=== PATIENT | female | born 1990 | race Caucasian/White ===

== ENCOUNTER 2022-03-27 10:46 | Emergency (ER) | payer MEDICAID, SELFPAY ==
[2022-03-27 10:47] VITALS: BP 130/91; PULSE 76; RESP 18; TEMP 35.8; O2SAT 100; BMI 28.8
--- NOTE | 2022-03-27 11:16 | EKG12_ITS ---
Test Reason : Blood Pressure : / mmHG Vent. Rate : 080 BPM Atrial Rate : 080 BPM P-R Int : 136 ms QRS Dur : 082 ms QT Int : 356 ms P-R-T Axes : 077 065 041 degrees QTc Int : 410 ms Normal sinus rhythm with sinus arrhythmia Normal ECG Confirmed by THANH BURKS, JESUS MANUEL ([id number]), editorial intern ORLANDO DIEGO ([id number]) on 03/29/2022 11:35:53 AM Referred By: ASTRID Confirmed By:JESUS MANUEL LAW MD
--- NOTE | 2022-03-27 11:32 | RAD_ITS ---
STUDY: X-RAY CHEST REASON FOR EXAM: Female, 32 years old. Chest pain TECHNIQUE: Single AP portable view of the chest. COMPARISON: None. FINDINGS: The lungs are clear and expanded. There is no demonstrated pleural abnormality. Normal size heart. Normal mediastinum and paz. Normal visualized pulmonary arteries. Normal visualized aortic arch and descending thoracic aorta. Normal visualized thoracic spine. Normal visualized ribs, clavicles, and shoulders. There is no demonstrated abnormality of the visualized soft tissue structures of the upper abdomen. RAD/Chest 1 View (Portable) IMPRESSION: Normal x-ray examination of the chest. Electronically Signed: Rusty Miranda MD at 12:37 EST ,
[2022-03-27 12:16] LABS: Absolute Lymphocyte Count 2.01 X10^3/uL (0.83-4.51); Absolute Neutrophil Count 8.2 X10^3/uL (2.0-7.7); Basophil# 0.09 X10^3/uL; Basophil% 0.8 % (0-1); Eosinophil# 0.45 X10^3/uL; Hematocrit 46.1 % (37-47); Hemoglobin 15.5 g/dL (12.0-15.0); Lymphocyte # 2.01 X10^3/ul (0.83-4.51); Lymphocyte % 17.7 % (19-41); Mean Corp Hgb Conc 33.6 g/dL (32-36); Mean Corpuscular Hgb 29.8 pg (27.0-32.0); Mean Corpuscular Volume 88.5 fL (81-99); Mean Platelet Vol. 9.8 fl (6.2-12.0); Monocyte# 0.55 X10^3/uL; Monocyte% 4.8 % (0-10); NRBC Flagged by Analyzer 0 % (0-5); Neutrophil # 8.23 X10^3/uL (2.7-7.7); Neutrophil % 72.3 % (47-70); Platelet Count 299 K/mm3 (150-450); RBC Distribution Width CV 13.2 % (11.6-14.6); RBC Distribution Width SD 42.6 fl (35.1-43.9); Red Blood Count 5.21 M/mm3 (4.2-5.4); White Blood Count 11.4 K/mm3 (4.4-11.0)
[2022-03-27 12:32] LABS: Anion Gap 4 (5-15); BUN 10 mg/dL (7-18); BUN/Creat Ratio 15.8 RATIO (10-20); Calcium,Total 9.6 mg/dL (8.5-10.1); Chloride 108 mmol/L (98-107); Creatinine, Serum 0.63 mg/dL (0.55-1.02); EST Glomerular Filtration Rate 115 mL/min (>60); Est Glom Filt Rate - Afr Amer 139 mL/min (>60); Estimated Creatinine Clearance 128.12 ml/min; Glucose 92 mg/dL (74-106); Potassium 3.9 mmol/L (3.5-5.1); Sodium Level 142 mmol/L (136-145); Troponin-I HS < 3 pg/mL (3.0-54.0)
[2022-03-27 13:59] VITALS: BP 120/80; PULSE 70; RESP 11; O2SAT 100
[2022-03-27 14:00] VITALS: BP 114/72; PULSE 75; RESP 12; O2SAT 99
[2022-03-27] MEDS: Acetaminophen 325 MG Tablet 650 MG PO (14:07)
[2022-03-27] MEDS: Mag Hydrox/Al Hydrox/Simeth 30 ML UDC PO (14:08)
[2022-03-27 15:00] VITALS: BP 116/92; PULSE 75; RESP 14; O2SAT 98
--- NOTE | 2022-03-27 15:12 | ED.VIS.CHEST ---
HPI History of Present Illness Chief Complaint: Chest Pain Informant: patient Narrative Narrative: Patient is a 32-year-old female that denies any past medical history presenting with chest pain. She states is in the center of her chest. Is worse when she takes a deep breath or tries to swallow something. Started 3 AM this morning and woke her up. Does not radiate. She thought initially was reflux but tried Tums with no help. She denies any shortness of breath, nausea or vomiting. She has a mild chronic cough that is unchanged. She does work at a [employer] but is not aware of any exposures to any respiratory illnesses. She denies any fever or chills. Denies any abdominal pain. Denies any swelling of her legs, recent immobilization or history of DVT/PE. She is not on any hormonal therapy. No other complaints at this time. Denies any tobacco use. Denies any family history of heart disease. 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 [facility] Medical History Collapsed lung Hypoplastic left heart Physical exam, pre-employment Home Medications famotidine 20 mg tablet (Pepcid) 20 mg PO BID #30 tabs 03/27/22 [Rx Last Taken Unknown] Allergy/AdvReac Type Severity Reaction Status Date / Time latex Allergy Rash Verified 03/27/22 10:48 penicillin G Allergy Hives Verified 03/27/22 10:48 Surgical History H/O: hysterectomy History of cholecystectomy Social History Smoking Status: Never smoker ROS ROS ED Constitutional Constitutional ED: Denies chills or fever(s) Eyes Eyes: Denies blurry vision ENT ENT ED: Denies rhinorrhea or sore throat Cardiovascular Cardiovascular: Reports as per HPI and chest pain Respiratory/Chest Respiratory/Chest: Denies dyspnea or dyspnea on exertion Gastrointestinal Gastrointestinal: Denies abdominal pain, nausea or vomiting Musculoskeletal Musculoskeletal: Denies arthralgias or myalgias Integumentary Denies rash Neurologic Neurologic: Denies headache(s) Hematologic/Lymphatic Hematologic/Lymphatic: Denies easy bleeding or easy bruising EXAM Physical Exam Const Vital Signs: 03/27/22 10:47 03/27/22 13:59 03/27/22 13:59 Temperature 96.5 F L Temperature Source Temporal Pulse Rate 76 70 Respiratory Rate 18 11 L Respiratory Effort Blood Pressure 130/91 H 120/80 Blood Pressure Mean 104 93 Pulse Ox 100 100 Oxygen Delivery Method Room Air Room Air Room Air 03/27/22 14:01 Temperature Temperature Source Pulse Rate Respiratory Rate Respiratory Effort Normal Blood Pressure Blood Pressure Mean Pulse Ox Oxygen Delivery Method Positive well nourished and well developed General Appearance ED: well developed and NAD HEENT Reports moist mucous membranes normocephalic and atraumatic Eyes PERRL and EOMs intact bilaterally Neck supple and no JVD Chest Wall inspection of chest normal Chest Narrative: Mild tenderness to the sternum with palpation however this does not reproduce her chest pain Resp normal respiratory effort and clear to auscultation bilaterally Cardio regular rate, regular rhythm and no murmurs Peripheral Pulses: radial pulses present and dorsalis pedis pulses present GI normal to inspection, nondistended, normoactive bowel sounds, soft to palpation and non-tender Back/Spine no CVA tenderness Extremity normal to inspection General Extremety ED: Negative for edema General Extremity: Negative for edema Neuro oriented x3 Neuro Narrative: No focal deficits appreciated Sensorium / Orientation: awake, alert, oriented to person, oriented to place and oriented to time Psych mental status grossly normal Skin no rashes or lesions noted Heart Score ECG: Normal Age: </= 45 years Risk Factors: No Risk Factors Troponin: </= Normal Limit Score: 0 MDM MDM MDM Narrative Medical decision making narrative: Patient is evaluated for substernal chest pain. She appears nontoxic in no acute distress. Due to wait time protocol orders were placed and patient had EKG and cardiac work-up started in the ER waiting room. Patient's EKG shows normal sinus rhythm with no acute ischemic process. Hice is a troponin is less than 3. CBC shows mildly elevated white blood cell count of 11.4 and a hemoglobin of 15.5 which is nonspecific. No significant electrolyte abnormalities appreciated. Given her symptoms been present since 3 AM I do not think repeat troponin is indicated as her first 1 is less than 3. I do not suspect ACS as a cause of her pain today. Patient is PE RC negative and I do not suspect a pulmonary emboli. I do not think a D-dimer CTA is indicated. Her vital signs are normal. Chest x-ray reviewed by myself as well as radiology does not show an acute process including pneumothorax, pneumonia or abnormal cardiac silhouette. Patient is given Tylenol and a GI cocktail. She states she has pain when trying to swallow the Tylenol and has mild improvement with a GI cocktail. She is not complaining of foreign body sensation in her chest and is not having any difficulty handling her secretions, food or vomiting. I do not think she has a food impaction of her esophagus. It is possible that she has a localized area of irritation in her esophagus versus GERD versus odynophagia/globus hystericus. At this time I do think patient stable for outpatient follow-up. Will be started on Pepcid and given first dose in the ER. Is instructed to follow-up with GI. Is given return precautions. Patient and family verbalized agreement understand this plan. Patient discharged home in stable condition. Lab Data Labs: Laboratory Results - last 24 hr 03/27/22 03/27/22 12:08 12:08 WBC 11.4 H RBC 5.21 Hgb 15.5 H Hct 46.1 MCV 88.5 MCH 29.8 MCHC 33.6 RDW Std Deviation 42.6 RDW Coeff of Dano 13.2 Plt Count 299 MPV 9.8 Immature Gran % (Auto) 0.400 Neut % (Auto) 72.3 H Lymph % (Auto) 17.7 L [place] % (Auto) 4.8 Eos % (Auto) 4.0 Baso % (Auto) 0.8 Absolute Neuts (auto) 8.2 H Absolute Lymphs (auto) 2.01 Nucleated RBC % 0 Sodium 142 Potassium 3.9 Chloride 108 H Carbon Dioxide 30.0 Anion Gap 4 L BUN 10 Creatinine 0.63 Estim Creat Clear Calc 128.12 Est GFR (MDRD) Af Amer 139 Est GFR (MDRD) Non-Af 115 BUN/Creatinine Ratio 15.8 Glucose 92 Calcium 9.6 Troponin I High Sens < 3 L Radiography Chest X-Ray - ED: 1 View, Read by ED Physician, Read by Radiologist and No Acute Disease Diagnostic Testing: Clinical Impression(s) from Imaging Studies Chest X-Ray 03/27/22 11:32 IMPRESSION: Normal x-ray examination of the chest. Electronically Signed: Rusty Miranda MD at 12:37 EST , Rhythm Strip Rhythm Strip: Sinus Rhythm Rate: 80 Ectopy: None EKG Initial EKG: Attestation: I personally reviewed and interpreted this EKG as follows: Interpretation: Sinus Rhythm Comments: Normal sinus rhythm at a rate of 80 bpm with sinus arrhythmia Normal axis Normal intervals Normal ST segments Discharge Plan Triage Chief Complaint: Chest Pain ED Provider: Keesha Gutierrez Dx/Rx/DC Orders Clinical Impression: Chest pain of unknown etiology, Odynophagia Instructions: ED Chest Pain, Noncardiac, ED Soft Diet Prescriptions: New famotidine [Pepcid] 20 mg tablet 20 mg PO BID Qty: 30 0RF Primary Care Provider: Idris Galloway Referrals: Rah Sanders DO [Med Staff - Active Staff] - As soon as possible Idrsi Galloway MD [Primary Care Provider] - Activity Restrictions/Additional Instructions: Your work-up was largely normal today. I suspect your discomfort is coming more from your esophagus. No signs of a heart attack or pulmonary emboli/pneumonia/collapsed lung on your exam today. We will start you on an antacid. If you start to have increased pain, difficulty swallowing or progression of your symptoms please return to the emergency room. Please follow-up with GI for further evaluation as you might require a scope (EGD) to further evaluate your esophagus/upper GI tract. Disposition Disposition: Home, Self Care
[2022-03-27] MEDS: Famotidine 20 MG Tablet PO (15:24)
== END 2022-03-27 15:39 | disposition home or self-care (01) ==
PROVIDERS: Emergency Provider Emergency Medicine; PCP Internal Medicine; Visit Provider Emergency Medicine
DX: R07.9 Chest pain, unspecified (principal); R13.10 Dysphagia, unspecified; Q23.4 Hypoplastic left heart syndrome
CPT/HCPCS: 71045; 80048; 84484; 85025; 93005; 99285; A4216

== ENCOUNTER 2023-02-27 03:10 | Emergency (ER) | payer MEDICAID, SELFPAY ==
[2023-02-27 03:11] VITALS: BP 106/80; PULSE 90; RESP 22; TEMP 37; O2SAT 99; BMI 28.6
--- NOTE | 2023-02-27 03:20 | EKG12_ITS ---
Test Reason : DYSRHYTHMIA Blood Pressure : / mmHG Vent. Rate : 088 BPM Atrial Rate : 088 BPM P-R Int : 148 ms QRS Dur : 080 ms QT Int : 370 ms P-R-T Axes : 062 035 044 degrees QTc Int : 447 ms Normal sinus rhythm Nonspecific ST abnormality Abnormal ECG Confirmed by THANH BURKS, JESUS MANUEL ([id number]), rewrite editor TRINIDAD HAQ ([id number]) on 02/27/2023 9:16:55 AM Referred By: BB Confirmed By:JESUS MANUEL LAW MD
--- NOTE | 2023-02-27 03:20 | ED.VIS.CHEST ---
HPI History of Present Illness Chief Complaint: Palpitations Informant: patient and EMS Narrative Narrative: Patient states she woke up less than an hour ago with chest discomfort, felt like her heart was racing, and a little short of breath. No syncope. Never had this before. She used her Apple Watch to check her heart rate and it was around 200. Called EMS, and prior to arrival in the emergency department, using their own protocols that they did a rhythm strip that appeared to show SVT, gave her adenosine 6 mg, this resulted in the rhythm breaking to sinus rhythm and the patient now feels asymptomatic. [facility] Medical History Collapsed lung Hypoplastic left heart Physical exam, pre-employment Home Medications hydroxyzine HCl 25 mg tablet 25 mg PO Q8H PRN anxiety 02/27/23 [History Last Taken Unknown] venlafaxine 75 mg capsule,extended release 24 hr 75 mg PO DAILY 02/27/23 [History Last Taken Unknown] Allergy/AdvReac Type Severity Reaction Status Date / Time latex Allergy Rash Verified 02/27/23 03:13 penicillin G Allergy Hives Verified 02/27/23 03:13 Surgical History H/O: hysterectomy History of cholecystectomy Social History Smoking Status: Never smoker ROS ROS ED Constitutional Constitutional ED: Denies chills or fever(s) Eyes Eyes: Denies change in vision or diplopia ENT ENT ED: Denies rhinorrhea or sore throat Cardiovascular Cardiovascular: Reports chest pain, palpitations and racing heartbeat Respiratory/Chest Respiratory/Chest: Reports dyspnea; Denies cough Gastrointestinal Gastrointestinal: Denies abdominal pain, diarrhea, nausea or vomiting Genitourinary Genitourinary ED: Denies dysuria or hematuria Musculoskeletal Musculoskeletal: Denies back pain or neck pain Integumentary Denies abscess or rash Neurologic Neurologic: Denies headache(s), paresthesias or weakness Psychiatric Psychiatric: Denies anxiety or suicidal thoughts EXAM Physical Exam Const Vital Signs: 02/27/23 03:11 02/27/23 03:15 Temperature 98.6 F Temperature Source Temporal Pulse Rate 90 Respiratory Rate 22 H Respiratory Pattern Normal Blood Pressure 106/80 Blood Pressure Mean 88 Pulse Ox 99 Oxygen Delivery Method Room Air Positive well nourished and well developed General Appearance ED: well developed and NAD HEENT Reports moist mucous membranes normocephalic and atraumatic Eyes PERRL and EOMs intact bilaterally Neck full ROM and supple Resp normal respiratory effort and clear to auscultation bilaterally Cardio regular rate, regular rhythm and no murmurs GI non-tender and non-distended Auscultation: normoactive bowel sounds Palpation: soft Back/Spine no CVA tenderness General Back: other FROM Extremity normal to inspection General Extremety ED: Negative for edema, pulses abnormal or tenderness General Extremity: Negative for edema or pulses abnormal Neuro oriented x3, CN's II-XII intact bilaterally and no sensory deficits noted Sensorium / Orientation: awake and alert Motor Exam: strength 5/5 throughout Skin no rashes or lesions noted and no wounds MDM MDM MDM Narrative Medical decision making narrative: Patient was monitored for an hour while we ran blood counts and electrolytes. I reviewed all of these, basically abnormal for potassium level of 3.2. This could either be related to the cause of her dysrhythmia, or it could be a result of feeling anxious and hyperventilating causing an acute transient respiratory alkalosis that could cause shift of potassium into the cells and make the serum level look low when she really is not whole-body potassium depleted. She was given a dose here orally since her renal function is normal, she is stable for discharge, and in reviewing the past medical history in her EMR, she has a history of hypoplastic left heart syndrome. I reviewed this with her, and she states that she did not have surgery for it that she believes, she followed up with a journeyman glazier in [place] when she was around 19 years old, and they said that her heart was structurally normal and she did not need to follow-up with him again. Given this history, I think routine follow-up with a journeyman glazier would be reasonable, she is comfortable with that plan. I would not recommend putting her on any chronotropics right now. Lab Data Attestation: I reviewed the patient's lab results. Labs: Laboratory Results - last 24 hr 02/27/23 03:13 WBC 11.5 H RBC 4.45 Hgb 13.0 Hct 38.6 MCV 86.7 MCH 29.2 MCHC 33.7 RDW Std Deviation 39.8 RDW Coeff of Dano 12.7 Plt Count 284 MPV 10.1 Immature Gran % (Auto) 0.300 Neut % (Auto) 71.5 H Lymph % (Auto) 17.8 L [place] % (Auto) 8.1 Eos % (Auto) 1.7 Baso % (Auto) 0.6 Absolute Neuts (auto) 8.2 H Absolute Lymphs (auto) 2.04 Nucleated RBC % 0 Sodium 142 Potassium 3.2 L Chloride 110 H Carbon Dioxide 25.0 Anion Gap 7 BUN 16 Creatinine 0.90 Estim Creat Clear Calc 100.86 Est GFR (MDRD) Af Amer 93 Est GFR (MDRD) Non-Af 77 BUN/Creatinine Ratio 17.9 Glucose 135 H Calcium 8.1 L Rhythm Strip Rhythm Strip: Sinus Rhythm Rate: 90 Ectopy: None EKG Initial EKG: Attestation: I personally reviewed and interpreted this EKG as follows: Interpretation: Sinus Rhythm and No Acute Injury Pattern Comments: nml EKG Discharge Plan Triage Chief Complaint: Palpitations ED Provider: Adolph Chong Dx/Rx/DC Orders Clinical Impression: SVT (supraventricular tachycardia), History of hypoplastic left heart syndrome, Hypokalemia Instructions: ED Understanding Supraventricular Tachycardia (SVT) Prescriptions: No Action hydroxyzine HCl 25 mg tablet 25 mg PO Q8H PRN (Reason: anxiety) venlafaxine 75 mg capsule,extended release 24hr 75 mg PO DAILY Primary Care Provider: Idris Galloway Referrals: Chao Almaraz MD [Med Staff - Active Staff] - (call for follow up appt; if you prefer to see someone in [facility] system, just call your doctor's office for referral/appt info) Disposition Disposition: Home, Self Care
[2023-02-27 03:31] LABS: Absolute Lymphocyte Count 2.04 X10^3/uL (0.83-4.51); Absolute Neutrophil Count 8.2 X10^3/uL (2.0-7.7); Basophil# 0.07 X10^3/uL; Basophil% 0.6 % (0-1); Eosinophils% 1.7 % (0-5); Hematocrit 38.6 % (37-47); Lymphocyte # 2.04 X10^3/ul (0.83-4.51); Lymphocyte % 17.8 % (19-41); Mean Corp Hgb Conc 33.7 g/dL (32-36); Mean Corpuscular Hgb 29.2 pg (27.0-32.0); Mean Corpuscular Volume 86.7 fL (81-99); Mean Platelet Vol. 10.1 fl (6.2-12.0); Monocyte# 0.93 X10^3/uL; Monocyte% 8.1 % (0-10); NRBC Flagged by Analyzer 0 % (0-5); Neutrophil # 8.17 X10^3/uL (2.7-7.7); Neutrophil % 71.5 % (47-70); Platelet Count 284 K/mm3 (150-450); RBC Distribution Width CV 12.7 % (11.6-14.6); RBC Distribution Width SD 39.8 fl (35.1-43.9); Red Blood Count 4.45 M/mm3 (4.2-5.4); White Blood Count 11.5 K/mm3 (4.4-11.0)
[2023-02-27 03:46] LABS: Anion Gap 7 (5-15); BUN 16 mg/dL (7-18); BUN/Creat Ratio 17.9 RATIO (10-20); Calcium,Total 8.1 mg/dL (8.5-10.1); Chloride 110 mmol/L (98-107); EST Glomerular Filtration Rate 77 mL/min (>60); Est Glom Filt Rate - Afr Amer 93 mL/min (>60); Estimated Creatinine Clearance 100.86 ml/min; Glucose 135 mg/dL (74-106); Potassium 3.2 mmol/L (3.5-5.1); Sodium Level 142 mmol/L (136-145)
--- OUTSIDE RECORDS SUMMARY | 2023-02-27 03:47 | XMS RPT_ITS | CCD ---
Author Name Unknown Address [address] [place] [address] Organization [facility] Care Team Providers Care Weight Count Operator Name Role Phone Nilesh BURKS, Idris Lerner Primary Care Provider [phone] LAURENT CELIS Attending Unavailable LAURENT CELIS Primary Care Unavailable LAURENT CELIS Admitting Unavailable Idris Mena MD Primary Care Provider [phone] PROVIDER, UNKNOWN Referring Unavailable MENA, IGGY Primary Care Unavailable LEYDI OBREGONEN Referring Unavailable MENA, IGGY Primary Care Unavailable RACHEL OBREGON Attending Unavailable LINAKARACHEL Referring Unavailable MENA, IGGY Primary Care Unavailable OLDERMARIETTA Attending Unavailable MENA, IGGY Primary Care Unavailable MENA, IGGY Primary Care Unavailable MENA, IGGY Primary Care Unavailable MANE JADE Attending Unavaila ble RACHEL OBREGON Referring Unavailable MENA, IGGY Primary Care Unavailable LINAKARACHEL Attending Unavailable MENA, IGGY Referring Unavailable MENA, IGGY Primary Care Unavailable CHEYANNE JEFFERSON Attending Unavailable MENA, IGGY Primary Care Unavailable OLDER, CAROLYN Referring Unavailable MENA, IGGY Primary Care Unavailable OLDER, CAROLYN Referring Unavailable MENA, IGGY Primary Care Unavailable OLDER, CAROLYN Attending Unavailable MENA, IGGY Primary Care Unavailable MENA, IGGY Primary Care Unavailable OLDER, CAROLYN Attending Unavailable MENA, IGGY Primary Care Unavailable Allergies Allergy Classification Reported Allergen(s) Allergy Type Date of Onset Reaction(s) Facility (14 sources) Latex; Translations: [LATEX] Propensity to adverse reactions 01-27-2009 Rash [facility] Work Phone: (4 sources) Penicillins; Translations: [PENICILLINS] Propensity to adverse reactions 09-05-2007 [facility] Work Phone: (10 sources) Penicillins Propensity to adverse reactions 09-05-2007 [facility] Work Phone: Medications Current Medications Medication Drug Class(es) Dates Sig (Normalized) Sig (Original) bifidobacterium infantis 4 mg oral capsule (1 source) Start: 06-26-2022 take 1 capsule by mouth once daily Bifidobacterium Infantis (ALIGN) 4 mg cap Indications: Loose stools Take 1 capsule by mouth once daily. 42 capsule 1 06/26/2022 Active Completed/Discontinued Medications Medication Drug Class(es) Dates Sig (Normalized) Sig (Original) cholestyramine resin 4000 mg powder for oral suspension (7 sources) Bile Acid Sequestrant Start: 05-16-2022 take 4 g by mouth three times daily at mealtime cholestyramine-s ucrose (QUESTRAN) 4 gram powder Indications: Altered bowel habits Take 4 g by mouth three times daily with meals. 368.76 g 1 05/16/2022 Active Problems Active Problems Problem Classification Problem Date Documented Da te Episodic/Chronic Anxiety disorders (13 sources) Anxiety; Translations: [Anxiety disorder, unspecified] Onset: 05-26-2019 11-23-2019 Chronic Gastritis and duodenitis (1 source) Bile-induced gastritis; Translations: [Other gastritis without bleeding] Episodic Miscellaneous mental health disorders (12 sources) Insomnia disorder related to another mental disorder; Translations: [Insomnia due to other mental disorder] Onset: 05-26-2019 11-23-2019 Chronic Mood disorders (1 source) Depressive disorder; Translations: [Depressive disorder] Onset: 11-21-2022 Chronic Other gastrointestinal disorders (1 source) Altered bowel function; Translations: [Change in bowel habit] Episodic Other gastrointestinal disorders (1 source) Constipation alternates with diarrhea; Translations: [Other specified symptoms and signs involving the digestive system and abdomen] Episodic Other gastrointestinal disorders (1 source) Loose stool; Translations: [Other fecal abnormalities] Episodic Other lower respiratory disease (2 sources) Chest pain; Translations: [Chest pain on breathing] Episodic Other nutritional; endocrine; and metabolic disorders (12 sources) Obese class I; Translations: [Obesity, unspecified] Onset: 11-23-2019 11-23-2019 Chronic Other skin disorders (2 sources) Folliculitis; Translations: [Follicular disorder, unspecified] Episodic Other upper respiratory infections (4 sources) Pharyngitis; Translations: [Acute pharyngitis, unspecified] Episodic Past or Other Problems Problem Classification Problem Date Documented Da te Episodic/Chronic Abdominal pain (3 sources) Left lower quadrant pain; Translations: [Left lower quadrant pain] Onset: 01-18-2022 Episodic Immunizations and screening for infectious disease (2 sources) Immunization due; Translations: [Encounter for immunization] Onset: 06-13-2022 Episodic Nonspecific chest pain (2 sources) Retrosternal pain ; Translations: [Precordial pain] Onset: 05-16-2022 Episodic Other gastrointestinal disorders (10 sources) Swallowing painful; Translations: [Dysphagia, unspecified] Onset: 04-01-2022 Episodic Other gastrointestinal disorders (2 sources) Dysphagia, unspecified; Translations: [Odynophagia] Onset: 04-01-2022 Episodic Other gastrointestinal disorders (1 source) Other fecal abnormalities; Translations: [Loose stools] Onset: 06-26-2022 Episodic Other gastrointestinal disorders (1 source) Other specified symptoms and signs involving the digestive system and abdomen; Translations: [Alternating constipation and diarrhea] Onset: 06-13-2022 Episodic Other skin disorders (1 source) Follicular disorder, unspecified; Translations: [Folliculitis] Onset: 06-13-2022 Episodic Screening and history of mental health and substance abuse codes (12 sources) H/O: depression; Translations: [Personal history of other mental and behavioral disorders] Onset: 08-06-2013 02-13-2021 Episodic Results Test Name Value Interpretation Reference Range Facil ity Vital Signs Date Time Vital Sign Value Performing Clinician Fawad vanegas 06-26-2022 08:15-0400 Body height 172.7 cm Rachel Obregon PA-C Work Phone: [facility] 06-26-2022 08:15-0400 Body weight 84.82 kg Rachel Obregon PA-C Work Phone: [facility] 06-26-2022 08:15-0400 Diastolic blood pressure 82 mm[Hg] Rachel Obregon PA-C Work Phone: [facility] 06-26-2022 08:15-0400 Heart rate 74 /min Rachel Radha PA-C Work Phone: [facility] 06-26-2022 08:15-0400 Systolic blood pressure 120 mm[Hg] Rachel Radha PA-C Work Phone: [facility] 06-11-2022 09:51-0400 Body temperature 97.81 [degF] Bonny Farnsworth APRN.DENTAL CLAIMS PROCESSOR Work Phone: [facility] 06-11-2022 09:51-0400 Body weight 84.82 kg Bonny Farnsworth APRN.DENTAL CLAIMS PROCESSOR Work Phone: [facility] 06-11-2022 09:51-0400 Diastolic blood pressure 70 mm[Hg] Bonny Farnsworth APRN.DENTAL CLAIMS PROCESSOR Work Phone: [facility] 06-11-2022 09:51-0400 Heart rate 96 /min Bonny Farnsworth APRN.DENTAL CLAIMS PROCESSOR Work Phone: [facility] 06-11-2022 09:51-0400 Respiratory rate 16 /min Bonny Farnsworth APRN.DENTAL CLAIMS PROCESSOR Work Phone: [facility] 06-11-2022 09:51-0400 SaO2% (BldA) [Mass fraction] 99 % Bonny Farnsworth APRN.DENTAL CLAIMS PROCESSOR Work Phone: [facility] 06-11-2022 09:51-0400 Systolic blood pressure 122 mm[Hg] Bonny Farnsworth APRN.DENTAL CLAIMS PROCESSOR Work Phone: [facility] 05-30-2022 12:08-0400 Body temperature 98.6 [degF] Musa Robledo MD Work Phone: [facility] 05-30-2022 12:08-0400 Body weight 84.82 kg Musa Robledo MD Work Phone: [facility] 05-30-2022 12:08-0400 Diastolic blood pressure 76 mm[Hg] Musa Robledo MD Work Phone: [facility] 05-30-2022 12:08-0400 Heart rate 68 /min Musa Robledo MD Work Phone: [facility] 05-30-2022 12:08-0400 Respiratory rate 16 /min Musa Robledo MD Work Phone: [facility] 05-30-2022 12:08-0400 SaO2% (BldA) [Mass fraction] 100 % Musa Robledo MD Work Phone: [facility] 05-30-2022 12:08-0400 Systolic blood pressure 130 mm[Hg] Musa Robledo MD Work Phone: [facility] 05-16-2022 12:49-0400 Body height 172.7 cm Rachel Kalka PA-C Work Phone: [facility] 05-16-2022 12:49-0400 Body weight 86.18 kg Rachel Kalka PA-C Work Phone: [facility] 05-16-2022 12:49-0400 Diastolic blood pressure 80 mm[Hg] Rachel Kalka PA-C Work Phone: [facility] 05-16-2022 12:49-0400 Heart rate 80 /min Rachel Kalka PA-C Work Phone: [facility] 05-16-2022 12:49-0400 Systolic blood pressure 116 mm[Hg] Rachel Kalka PA-C Work Phone: [facility] 03-27-2022 10:03-0500 Body weight 85.73 kg Cheyanne Jefferson AIRPLANE TESTER.MARRIAGE AND FAMILY THERAPIST Work Phone: [facility] 03-27-2022 10:03-0500 Diastolic blood pressure 80 mm[Hg] Cheyanne Jefferson AIRPLANE TESTER.MARRIAGE AND FAMILY THERAPIST Work Phone: [facility] 03-27-2022 10:03-0500 Heart rate 74 /min Cheyanne Jefferson AIRPLANE TESTER.MARRIAGE AND FAMILY THERAPIST Work Phone: [facility] 03-27-2022 10:03-0500 Respiratory rate 16 /min Cheyanne Jefferson AIRPLANE TESTER.MARRIAGE AND FAMILY THERAPIST Work Phone: [facility] 03-27-2022 10:03-0500 SaO2% (BldA) [Mass fraction] 99 % Cheyanne Jefferson AIRPLANE TESTER.MARRIAGE AND FAMILY THERAPIST Work Phone: [facility] 03-27-2022 10:03-0500 Systolic blood pressure 116 mm[Hg] Cheyanne Ardons AIRPLANE TESTER.MARRIAGE AND FAMILY THERAPIST Work Phone: [facility] 01-16-2022 11:34-0500 Body weight 87.09 kg Carolyn Older AIRPLANE TESTER.DENTAL CLAIMS PROCESSOR Work Phone: [facility] 01-16-2022 11:34-0500 Diastolic blood pressure 84 mm[Hg] Carolyn Older AIRPLANE TESTER.DENTAL CLAIMS PROCESSOR Work Phone: [facility] 01-16-2022 11:34-0500 Heart rate 84 /min Carolyn Older AIRPLANE TESTER.DENTAL CLAIMS PROCESSOR Work Phone: [facility] 01-16-2022 11:34-0500 Respiratory rate 14 /min Carolyn Older AIRPLANE TESTER.DENTAL CLAIMS PROCESSOR Work Phone: [facility] 01-16-2022 11:34-0500 Systolic blood pressure 136 mm[Hg] Carolyn Older AIRPLANE TESTER.DENTAL CLAIMS PROCESSOR Work Phone: [facility] 06-06-2021 12:33-0400 Body temperature 98.6 [degF] Lu Ramirez AIRPLANE TESTER.DENTAL CLAIMS PROCESSOR Work Phone: [facility] 06-06-2021 12:33-0400 Body weight 90.72 kg Lu Ramirez AIRPLANE TESTER.DENTAL CLAIMS PROCESSOR Work Phone: [facility] 06-06-2021 12:33-0400 Diastolic blood pressure 80 mm[Hg] Lu Ramirez AIRPLANE TESTER.DENTAL CLAIMS PROCESSOR Work Phone: [facility] 06-06-2021 12:33-0400 Heart rate 64 /min Lu Ramirez AIRPLANE TESTER.DENTAL CLAIMS PROCESSOR Work Phone: [facility] 06-06-2021 12:33-0400 Respiratory rate 20 /min Lu Ramirez AIRPLANE TESTER.DENTAL CLAIMS PROCESSOR Work Phone: [facility] 06-06-2021 12:33-0400 SaO2% (BldA) [Mass fraction] 100 % Lu Ramirez AIRPLANE TESTER.DENTAL CLAIMS PROCESSOR Work Phone: [facility] 06-06-2021 12:33-0400 Systolic blood pressure 124 mm[Hg] Lu Ramirez AIRPLANE TESTER.DENTAL CLAIMS PROCESSOR Work Phone: [facility] Encounters Encounter Date Encounter Type Care Provider Facility Start: 11-30-2022 End: 11-30-2022 ambulatory IDRIS MENA Facility:[facility] Start: 11-30-2022 End: 11-30-2022 ambulatory Immunization Clinic Nurse Carmen Work Phone: [facility] [place] Start: 11-21-2022 End: 11-22-2022 ambulatory CAROLYN OLDER Facility:[facility] Start: 06-26-2022 End: 06-27-2022 ambulatory RACHEL OBREGON Facility:[facility] Start: 06-26-2022 End: 06-26-2022 ambulatory RACHEL OBREGON Facility:[facility] Start: 06-26-2022 End: 06-26-2022 Patient encounter procedure Rachel PARKERC Work Phone: [facility] [place] Procedures Date Procedure Procedure Detail Performing Clinician Start: 11-30-2022 INFLUENZA VACCINE, A GE 6 MO - 64 YR, QUADRIVALENT (AFLURIA, FLULAVAL, FLUZONE) Idris Mena MD Work Phone: Start: 06-01-2022 Radiologic exam esop hagus single contrast study Mane Jade MD Work Phone: Start: 05-30-2022 STREP A MOLECULAR (POC) Ciara Vincent AIRPLANE TESTER.DENTAL CLAIMS PROCESSOR Work Phone: Start: 01-16-2022 Urnls dip stick/tabl et rgnt auto w/o microscopy Carolyn Older AIRPLANE TESTER.DENTAL CLAIMS PROCESSOR Work Phone: Start: 06-06-2021 STREP A MOLECULAR (POC) Lu Ramirez AIRPLANE TESTER.DENTAL CLAIMS PROCESSOR Work Phone: Start: 04-11-2021 Adult depression scr eening assessment Nyla Lange AIRPLANE TESTER.DENTAL CLAIMS PROCESSOR Work Phone: Plan of Treatment Date Care Activity Detail Author Start: 12-09-2023 Urine microalbumin profile [facility] Start: 10-19-2022 Covid-19 Vaccine ( season) Covid-19 Vaccine ( season) [facility] Start: 10-19-2022 Influenza vaccination INFLUENZ A (Season Ended) [facility] Start: 06-26-2022 End: 08-26-2022 CELIAC SCREEN WITH REFLEX [facility] Work Phone: Immunizations Immunization Date Immunization Notes Care Provider Emanuel alexander 11-30-2022 influenza, injectabl e, quadrivalent, contains preservative Immunization Carmen Work Phone: [facility] Work Phone: 06-13-2022 measles, mumps and rubella virus vaccine Marietta Angel AIRPLANE TESTER.DENTAL CLAIMS PROCESSOR Work Phone: [facility] 10-31-2018 influenza, injectabl e, quadrivalent, contains preservative Nyla Nazario AIRPLANE TESTER.DENTAL CLAIMS PROCESSOR Work Phone: [facility] 12-08-2013 tetanus toxoid, redu irish diphtheria toxoid, and acellular pertussis vaccine, adsorbed Nyla Nazario AIRPLANE TESTER.DENTAL CLAIMS PROCESSOR Work Phone: [facility] 10-19-2013 tetanus toxoid, redu irish diphtheria toxoid, and acellular pertussis vaccine, adsorbed Nyla Lone Rock AIRPLANE TESTER.DENTAL CLAIMS PROCESSOR Work Phone: [facility] Work Phone: 11-03-2007 HPV, unspecified formulation Nyla Nazario AIRPLANE TESTER.DENTAL CLAIMS PROCESSOR Work Phone: [facility] Work Phone: 11-03-2007 meningococcal polysaccharide vaccine (MPSV4) Nyla Nazario AIRPLANE TESTER.DENTAL CLAIMS PROCESSOR Work Phone: [facility] Work Phone: 07-03-2007 HPV, unspecified formulation Nyla [place] AIRPLANE TESTER.[facility] Work Phone: [facility] Work Phone: 04-29-2007 HPV, unspecified formulation Nyla [place] AIRPLANE TESTER.[facility] Work Phone: [facility] Work Phone: 04-29-2007 tetanus toxoid, redu irish diphtheria toxoid, and acellular pertussis vaccine, adsorbed Nyla [place] AIRPLANE TESTER.[facility] Work Phone: [facility] Work Phone: 01-14-1997 hepatitis B vaccine, pediatric or pediatric/adolescent dosage Nyla [place] AIRPLANE TESTER.[facility] Work Phone: [facility] Work Phone: 07-09-1996 hepatitis B vaccine, pediatric or pediatric/adolescent dosage Nyla [place] AIRPLANE TESTER.[facility] Work Phone: [facility] Work Phone: 06-05-1996 hepatitis B vaccine, pediatric or pediatric/adolescent dosage Nyla Nazario AIRPLANE TESTER.[facility] Work Phone: [facility] Work Phone: 06-05-1996 measles, mumps and rubella virus vaccine Nyla Nazario AIRPLANE TESTER.[facility] Work Phone: [facility] Work Phone: 03-02-1993 diphtheria, tetanus toxoids and acellular pertussis vaccine, unspecified formulation Nyla [place] AIRPLANE TESTER.DENTAL CLAIMS PROCESSOR Work Phone: [facility] Work Phone: 03-02-1993 trivalent poliovirus vaccine, live, oral Nyla Nazario AIRPLANE TESTER.DENTAL CLAIMS PROCESSOR Work Phone: [facility] Work Phone: 10-15-1991 diphtheria, tetanus toxoids and pertussis vaccine Nyla [place] AIRPLANE TESTER.DENTAL CLAIMS PROCESSOR Work Phone: [facility] Work Phone: 10-15-1991 measles, mumps and rubella virus vaccine Nyla Nazario AIRPLANE TESTER.DENTAL CLAIMS PROCESSOR Work Phone: [facility] Work Phone: 10-15-1991 trivalent poliovirus vaccine, live, oral Nyla [place] AIRPLANE TESTER.DENTAL CLAIMS PROCESSOR Work Phone: [facility] Work Phone: 04-16-1991 haemophilus influenz ae type b vaccine, conjugate unspecified formulation Nyla Nazario AIRPLANE TESTER.DENTAL CLAIMS PROCESSOR Work Phone: [facility] Work Phone: Payers Date Payer Category Payer Medicaid [id number] 2009 [facility] MEDICAID [id number] 2009-Present [phone] [address] [place] [address] Medicaid [id number] 2009 Medicaid [id number] 2009 Medicaid [id number] Social History Date Type Detail Facility Start: 01-16-2022 Tobacco smoking status NHIS Never sm oked tobacco [facility] Start: 04-11-2021 End: 11-21-2022 Alcohol intake Current drinker of alcohol (finding) [facility] Start: 06-23-2019 End: 03-27-2022 History SDOH Alcohol Frequency 2 [facility] Start: 06-23-2019 End: 11-23-2019 History SDOH Alcohol Std Drinks 1 [facility] Start: 11-23-2019 History SDOH Alcohol Comment rare occasions. [facility] Start: 11-23-2019 End: 03-27-2022 History SDOH Social Connections Phone 5 [facility] Start: 11-23-2019 History SDOH Social Connections Meetings 98 [facility] Start: 06-23-2019 End: 03-27-2022 History SDOH Social Connections Living 3 [facility] Start: 06-23-2019 History SDOH Physica l Activity DPW 0 [facility] Start: 11-22-2019 Education 21 [facility] Start: 1990 Sex Assigned At Not on file C [facility] Start: 01-16-2022 Tobacco use and exposure Smoke less tobacco non-user [facility] Start: 03-27-2022 History SDOH Physica l Activity MPS 6 [facility] Start: 03-27-2022 History SDOH Stress 4 [facility] Start: 03-27-2022 End: 06-26-2022 History of Social function [facility] Start: 03-27-2022 End: 06-26-2022 Social connection and isolation panel [facility] Do you belong to any clubs or organizations such as shinto groups, unions, fraternal or athletic groups, or school groups? No [facility] Are you now , , , , never or living with a partner? [facility] How often to you hav e a drink containing alcohol? Monthly or less [facility] How many standard dr inks containing alcohol do you have on a typical day? 1 or 2 [facility] How often do you hav e 6 or more drinks on 1 occasion? Never [facility] How hard is it for y ou to pay for the very basics like food, housing, medical care, and heating Not hard at all [facility] Do you feel stress - tense, restless, nervous, or anxious, or unable to sleep at night because your mind is troubled all the time - these days [OSQ] Rather much [facility] (I/We) worried whemargarita er (my/our) food would run out before (I/we) got money to buy more. Never true [facility] Medical Equipment Procedure Code Equipment Code Equipment Origin al Text Equipment Identifier Dates Patch Srg Vntrlx St 1.7in [facility] - [id number] Start: 04-15-2014 Clinical Notes 08-02-2014 to 11-21-2022 Rachel Obregon PA-C - 06/26/2022 8:13 AM Prisca Ortiz APRN.DENTAL CLAIMS PROCESSOR - 06/13/2022 2:59 PM Mimi Farnsworth APRN.DENTAL CLAIMS PROCESSOR - 06/11/2022 10:02 AM Petra Dialloen, RT(R) - 06/01/2022 8:30 AM EDT Note Date & Type Note Facility 11-21-2022 Note HNO ID: [id number] Author: Carolyn Ortiz APRN.DENTAL CLAIMS PROCESSOR Service: ? Author Type: Nurse Practitioner Type: Progress Notes Filed: 11/21/2022 1:17 PM Note Text: Chief Complaint Patient presents with: Anxiety HPI Smitha Hayes is a 32 year old female who presents here today for worsening anxiety. She has been under an extreme amount of stress lately. Her is in residential on domestic violence charges and she is now a single mom with 4 kids. Sleep: difficulty staying asleep Alcohol use: does not drink any alcohol Drug use: No Appetite: poor Suicidal Thoughts: No suicidal ideation, intent or plan Counseling: Yes, starting counseling at [facility] today Personal mental health hx: anxiety, depression. Medication history: Celexa, Paxil, Zoloft none of which were effective CP PHQ9 11/21/2022 Little interest or pleasure 0 - Not at all Feeling down, depressed, hopeless 1 - Several days Trouble falling or staying asleep, sleeping too much 3 - nearly every day Feeling tired, having little energy 1 - Several days Poor appetite or overeating 3 - Nearly every day Feeling bad about yourself, failure or you have let yourself/family down 2 - More than half the days Trouble concentrating on things 2 - More than half the days Moving or speaking so slowly, or fidgety or restless 0 - Not at all Thoughts that you would be better off , or of hurting yourself in some way 0 - Not at all How difficult have these problems made things Somewhat difficult Interpretation of Total Score 10-14 Moderate depression DUARTE-7 ANXIETY SCALE 11/21/2022 FEELING NERVOUS,ANXIOUS,OR ON EDGE 3 Nearly every day NOT BEING ABLE TO STOP OR CONTROL WORRYING 3 Nearly every day WORRYING TOO MUCH ABOUT DIFFERENT THINGS 3 Nearly every day TROUBLE RELAXING 3 Nearly every day BEING SO RESTLESS THAT IT'S HARD TO SIT STILL 2 Over half the days BEING EASILY ANNOYED OR IRRITABLE 3 Nearly every day FEELING AFRAID IF SOMETHING AWFUL MIGHT HAPPEN 3 Nearly every day GAD7 SCORE 20 IF YOU CHECKED OFF ANY PROBLEMS Somewhat difficult REVIEW OF SYSTEMS See HPI 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 Irregular menstrual cycle 08/02/2014 Other abnormal heart sounds Murmur Placental abruption depression 10/25/2009 hemorrhage PAST SURGICAL HISTORY Procedure Laterality Date EGD W/O BRSH SPEC VARICIES INJ 05/22/2022 Mild stomach inflammation LAPAROSCOPY REPAIR INCISIONAL HERNIA REDUCIBLE 04/15/2014 1cm defect - ventralex ST small mesh LAPS SURG CHOLECYSTECTOMY W/CHOLANGIOGRAPHY 12/27/2010 Normal IOC S TUBAL LIGATION 03/2014 bilateral salpingectomy VAGINAL HYSTERECTOMY UTERUS 250 GM/< 01/19/2016 [facility] ALLERGIES Latex and Penicillins MEDICATIONS pantoprazole DR (PROTONIX) 40 mg tabletTake 1 tablet by mouth once daily. On empty stomach at least 30 minutes before meal.Disp: 30 tabletRfl: 2 (Patient not taking: Reported on 11/21/2022) Bifidobacterium Infantis (ALIGN) 4 mg capTake 1 capsule by mouth once daily.Disp: 42 capsuleRfl: 1 (Patient not taking: Reported on 11/21/2022) hyoscyamine sublingual (LEVSIN/SL) 0.125 mgDissolve 1 tablet under the tongue every 4 hours as needed (for abdominal pain).Disp: 30 tabletRfl: 2 (Patient not taking: Reported on 11/21/2022) cholestyramine-sucrose (QUESTRAN) 4 gram powderTake 4 g by mouth three times daily with meals.Disp: 368.76 gRfl: 1 (Patient not taking: Reported on 11/21/2022) FAMILY HISTORY Problem Relation Age of Onset Diabetes Mother Cancer Mother UTERINE CANCER Hypertension Father Heart Father 4 MD's Melanoma Father metastatic No Known Problems Sister No Known Problems Brother No Known Problems Brother Heart disease Brother at Hypertension Maternal Grandfather Heart Paternal Grandfather Colon Cancer No Family History Social History Tobacco Use Smoking status: Never Smokeless tobacco: Never Vaping Use Vaping Use: Never used Substance Use Topics Alcohol use: Yes Comment: rare occasions. Drug use: No BP 124/88 Pulse 80 Resp 12 Wt 83 kg (183 lb) LMP 12/29/2015 (Exact Date) SpO2 98% BMI 27.83 kg/m? Physical Exam Constitutional: Appearance: Normal appearance. Neurological: Mental Status: She is alert. Psychiatric: Attention and Perception: Attention normal. Mood and Affect: Mood is anxious. Affect is flat. Speech: Speech normal. Behavior: Behavior normal. Behavior is cooperative. Thought Content: Thought content normal. Cognition and Memory: Cognition normal. Judgment: Judgment normal. ASSESSMENT/PLAN: 1. Anxiety - ICD9: 300.00, ICD10: F41.9 (primary diagnosis) History of anxiety, worse with increased stress. Previous medications ineffective. - start treatment with Effexor 37.5 mg daily - (more content not included)... [facility] 06-26-2022 Note HNO ID: [id number] Author: Rachel Obregon PA-C Service: ? Author Type: Physician [place] Type: Progress Notes Filed: 06/26/2022 8:40 AM Note Text: CHIEF COMPLAINT: Patient presents with: Procedure Follow Up: Painful swallowing is better but still having heartburn.Left sided stabbing pain before bowel movements EGD 05/22/22 Esophagram 06/01/22 HPI Smitha Hayes is a 32 year old female here today for Procedure Follow Up (Painful swallowing is better but still having heartburn.Left sided stabbing pain before bowel movements EGD 05/22/22 Esophagram 06/01/22). Last seen for odynophagia, altered bowel habits. Odynophagia has improved, still having heartburn. Started Questran which is working well for diarrhea, now having a BM every 3-4 days, loose, no blood/black coloring. Notes some recent LLQ pain/ discomfort , intermittent 10/28, improves with BM. Denies weight loss. Esophagram 06/01/2022 IMPRESSION: Esophageal reflux EGD 05/2022 Impression: - Z-line irregular, 39 cm from the incisors. - Normal mucosa was found in the entire esophagus. Biopsied. - Bilious gastric fluid. - Bile gastritis. Biopsied. - Normal duodenal bulb and second portion of the duodenum. FINAL DIAGNOSIS A. Stomach, antrum, biopsy: - Gastric antral-type mucosa with reactive gastropathy. - Gastric oxyntic-type mucosa with no significant pathologic change. - No intestinal metaplasia or morphologic evidence of Helicobacter pylori organisms. B. Esophagus, body, biopsy: - Squamous esophageal mucosa with no significant pathologic change. - Detached fragment of gastric antral-type mucosa with reactive epithelial changes, most likely representing a tissue contaminant from the patient's gastric biopsy (part A). OV 04/2022 Smitha Hayes is a 32 year old female who presents for odynophagia ([facility] Seen in ER for odynophagia, CXR normal, discharged with Pepcid which she feels is helping somewhat. Experiencing burning sensations with swallowing. Admits to altered bowel habits, cramping since cholecystectomy in 2010. Has tried Questran in the past, does not remember result with this. Takes Ibuprofen 1x per week. Denies globus sensations, unintentional weight loss, emesis, choking, regurgitation, dysphagia. CXR 03/2022 Normal Current Outpatient Medications Medication Sig cholestyramine-sucrose (QUESTRAN) 4 gram powder Take 4 g by mouth three times daily with meals. No current facility-administered medications for this visit. Facility-Administered Medications Ordered in Other Visits Medication Dose Route Frequency lidocaine (PF) 10 mg/mL (1 %) 1-2 mg injection (XYLOCAINE) 0.1-0.2 mL INTRADERMAL PRN lactated ringers iv infusion 30 mL/hr INTRAVENOUS CONTINUOUS ALLERGIES Allergen Reactions Latex Rash Penicillins Hives Social History Tobacco Use Smoking status: Never Smokeless tobacco: Never Vaping Use Vaping Use: Never used Substance Use Topics Alcohol use: Yes Comment: rare occasions. 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 Irregular menstrual cycle 08/02/2014 Other abnormal heart sounds Murmur Placental abruption depression 10/25/2009 hemorrhage PAST SURGICAL HISTORY Procedure Laterality Date EGD W/O BRSH SPEC VARICIES INJ 05/22/2022 Mild stomach inflammation LAPAROSCOPY REPAIR INCISIONAL HERNIA REDUCIBLE 04/15/2014 1cm defect - ventralex ST small mesh LAPS SURG CHOLECYSTECTOMY W/CHOLANGIOGRAPHY 12/27/2010 Normal IOC S TUBAL LIGATION 03/2014 bilateral salpingectomy VAGINAL HYSTERECTOMY UTERUS 250 GM/< 01/19/2016 [facility] FAMILY HISTORY Problem Relation Age of Onset Diabetes Mother Cancer Mother UTERINE CANCER Hypertension Father Heart Father 4 MD's Melanoma Father metastatic No Known Problems Sister No Known Problems Brother No Known Problems Brother Heart disease Brother at Hypertension Maternal Grandfather Heart Paternal Grandfather Colon Cancer No Family History REVIEW OF SYSTEMS Review of Systems Gastrointestinal: Heartburn All other systems reviewed and are negative. PHYSICAL EXAM BP 120/82 Pulse 74 Ht 172.7 cm (5' 8 ) Wt 84.8 kg (187 lb) LMP 12/29/2015 (Exact Date) BMI 28.43 kg/m? Physical Exam Constitutional: General: She is not in acute distress. Appearance: Normal appearance. She is normal weight. She is not ill-appearing, toxic-appearing or diaphoretic. HENT: Head: Normocephalic and atraumatic. Nose: Nose normal. Eyes: General: No scleral icterus. Right eye: No discharge. Left eye: No discharge. Extraocular Movements: Extraocular movements intact. Conjunctiva/sclera: Conjunctivae normal. Pupils: Pupils are equal, roun (more content not included)... [facility] 06-26-2022 History of Presen t illness Narrative CHIEF COMPLAINT: Patient presents with: Procedure Follow Up: Painful swallowing is better but still having heartburn.Left sided stabbing pain before bowel movements EGD 05/22/22 Esophagram 06/01/22 HPI Smitha Hayes is a 32 year old female here today for Procedure Follow Up (Painful swallowing is better but still having heartburn.Left sided stabbing pain before bowel movements EGD 05/22/22 Esophagram 06/01/22). Last seen for odynophagia, altered bowel habits. Odynophagia has improved, still having heartburn. Started Questran which is working well for diarrhea, now having a BM every 3-4 days, loose, no blood/black coloring. Notes some recent LLQ pain/ discomfort , intermittent 10/28, improves with BM. Denies weight loss. Esophagram 06/01/2022 IMPRESSION: Esophageal reflux EGD 05/2022 Impression: - Z-line irregular, 39 cm from the incisors. - Normal mucosa was found in the entire esophagus. Biopsied. - Bilious gastric fluid. - Bile gastritis. Biopsied. - Normal duodenal bulb and second portion of the duodenum. FINAL DIAGNOSIS A. Stomach, antrum, biopsy: - Gastric antral-type mucosa with reactive gastropathy. - Gastric oxyntic-type mucosa with no significant pathologic change. - No intestinal metaplasia or morphologic evidence of Helicobacter pylori organisms. B. Esophagus, body, biopsy: - Squamous esophageal mucosa with no significant pathologic change. - Detached fragment of gastric antral-type mucosa with reactive epithelial changes, most likely representing a tissue contaminant from the patient's gastric biopsy (part A). OV 04/2022 Smitha Hayes is a 32 year old female who presents for odynophagia (Se[facility] Seen in ER for odynophagia, CXR normal, discharged with Pepcid which she feels is helping somewhat. Experiencing burning sensations with swallowing. Admits to altered bowel habits, cramping since cholecystectomy in 2010. Has tried Questran in the past, does not remember result with this. Takes Ibuprofen 1x per week. Denies globus sensations, unintentional weight loss, emesis, choking, regurgitation, dysphagia. CXR 03/2022 Normal Current Outpatient Medications Medication Sig cholestyramine-sucrose (QUESTRAN) 4 gram powder Take 4 g by mouth three times daily with meals. No current facility-administered medications for this visit. Facility-Administered Medications Ordered in Other Visits Medication Dose Route Frequency lidocaine (PF) 10 mg/mL (1 %) 1-2 mg injection (XYLOCAINE) 0.1-0.2 mL INTRADERMAL PRN lactated ringers iv infusion 30 mL/hr INTRAVENOUS CONTINUOUS ALLERGIES Allergen Reactions Latex Rash Penicillins Hives Social History Tobacco Use Smoking status: Never Smokeless tobacco: Never Vaping Use Vaping Use: Never used Substance Use Topics Alcohol use: Yes Comment: rare occasions. 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 Irregular menstrual cycle 08/02/2014 Other abnormal heart sounds Murmur Placental abruption depression 10/25/2009 hemorrhage PAST SURGICAL HISTORY Procedure Later[facility] 05/22/2022 Mild stomach inflammation LAPAROSCOPY REPAIR INCISIONAL HERNIA REDUCIBLE 04/15/2014 1cm defect - ventralex ST small mesh LAPS SURG CHOLECYSTECTOMY W/CHOLANGIOGRAPHY 12/27/2010 Normal IOC S TUBAL LIGATION 03/2014 bilateral salpingectomy VAGINAL HYSTERECTOMY UTERUS 250 GM/< 01/19/2016 [facility] FAMILY HISTORY Problem Relation Age of Onset Diabetes Mother Cancer Mother UTERINE CANCER Hypertension Father Heart Father 4 MD's Melanoma Father metastatic No Known Problems Sister No Known Problems Brother No Known Problems Brother Heart disease Brother at Hypertension Maternal Grandfather Heart Paternal Grandfather Colon Cancer No Family History REVIEW OF SYSTEMS Review of Systems Gastrointestinal: Heartburn All other systems reviewed and are negative. PHYSICAL EXAM BP 120/82 Pulse 74 Ht 172.7 cm (5' 8 ) Wt 84.8 kg (187 lb) LMP 12/29/2015 (Exact Date) BMI 28.43 kg/m Physical Exam Constitutional: General: She is not in acute distress. Appearance: Normal appearance. She is normal weight. She is not ill-appearing, toxic-appearing or diaphoretic. HENT: Head: Normocephalic and atraumatic. Nose: Nose normal. Eyes: General: No scleral icterus. Right eye: No discharge. Left eye: No discharge. Extraocular Movements: Extraocular movements intact. Conjunctiva/sclera: Conjunctivae normal. Pupils: Pupils are equal, round, and reactive to light. Cardiovascular: Rate and Rhythm: Normal rate and regular rhythm. Pulses: Normal pulses. Heart sounds: Normal heart sounds. No murmur heard. No friction rub. No gallop. Pulmonary: Effort: No respiratory distress. Breath sounds: Normal breath sounds. No stridor. No wheezing, rhonchi or rales. Chest: Chest wall: No tenderness. Abdominal: General: Abdomen is flat. Bowel sounds are normal. There is no distension. Palpations: Abdomen is soft. There is no mass. Tenderness: There is no abdominal tenderness. There is no right CVA tenderness, left CVA tenderness, guarding or rebound. Hernia: No hernia is present. Musculoskeletal: General: Normal range of motion. Cervical back: Normal range of motion and neck supple. Skin: General: Skin is warm and dry. Neurological: General: No focal deficit present. Mental Status: She is alert and oriented to person, place, and time. Psychiatric: Mood and Affect: Mood normal. Behavior: Behavior normal. Assessment/Plan (K29.60) Bile reflux gastritis (primary encounter diagnosis) (R19.5) Loose stools (R10.32) LLQ discomfort 1. Bile reflux gastritis - pantoprazole DR (PROTONIX) 40 mg tablet; Take 1 tablet by mouth once daily. On empty stomach at least 30 minutes before meal. Dispense: 30 tablet; Refill: 2 - Discussed bile reflux in detail - Will start on Protonix 40 mg daily - Follow reflux precautions 2. Loose stools - CALPROTECTIN,FECAL - PANC ELASTASE, FECAL - Bifidobacterium Infantis (ALIGN) 4 mg cap; Take 1 capsule by mouth once daily. Dispense: 42 capsule; Refill: 1 - CELIAC SCREEN WITH REFLEX; Future - Start Align daily - Check Celiac serology, calprotectin, elastase - Advised to cut back on Questran to avoid episodes of constipation may take once daily/BID to every other day 3. LLQ discomfort - hyoscyamine sublingual (LEVSIN/SL) 0.125 mg; Dissolve 1 tablet under the tongue every 4 hours as needed (for abdominal pain). Dispense: 30 tablet; Refill: 2 - Start Levsin PRN Follow up in office 3 months/PRN. Recommended to please call office/go to ER if fever, chills, chest pain, SOB, diarrhea, nausea, emesis, worsening abdominal pain, dehydration occurs I spent a total of 20 minutes on the date of the service which included preparing to see the patient, [id number] patient care, completing clinical documentation, obtaining and/or reviewing separately obtained history, performing a medically appropriate examination, counseling and educating the patient/family/caregiver, ordering medications, tests, or procedures, communicating with other HCPs (not separately reported), independently interpreting results (not separately reported), communicating results to the patient/family/caregiver, and care coordination (not separately reported). Rachel Obregon PA-C June 26, 2022 8:32 AM documented in this encounter [facility] 06-13-2022 Note HNO ID: [id number] Author: Marietta Ortiz APRN.DENTAL CLAIMS PROCESSOR Service: ? 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 Diet: Watches diet for salt (salty snacks, added salt, processed frozen/canned foods), sugary/sweet snacks, unhealthy fats: Yes Caffeine: 1 cup a day Water intake: average of 60 ounces daily Diarrhea post cholecystectomy since 2008. Sees GI for this and is controlled with questran. Recent generalized folliculitis which is being treated with doxycycline which is greatly improving with treatment. REVIEW OF SYSTEMS General: no fevers, no chills, no night sweats, no recurrent infections, no change in appetite, no change in energy, and no significant changes in weight HEENT: no frequent or significant headaches, no changes in hearing, no visual changes, no nose bleeds, no sinus or nasal problems Respiratory: no cough, no wheezing, no shortness of breath, no hemoptysis Cardiovascular: no chest pain, no chest pressure, no palpitations, and no swelling GI: no nausea vomiting or abdominal pain : No history of dysuria, frequency or incontinence Musculoskeletal: Negative for joint pain or swelling, back pain or muscle pain Psych: PHQ2 is 0 Endocrine: no fatigue, no weight gain, no weight loss, no cold intolerance, no heat intolerance, no polyuria, no polyphagia, and no polydipsia Neurologic: No headache, weakness, numbness, tingling, dizziness, memory loss, syncope. 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 Irregular menstrual cycle 08/02/2014 Other abnormal heart sounds Murmur Placental abruption depression 10/25/2009 hemorrhage PAST SURGICAL HISTORY Procedure Laterality Date EGD W/O BR[facility] SPEC VARICIES INJ 05/22/2022 Mild stomach inflammation LAPAROSCOPY REPAIR INCISIONAL HERNIA REDUCIBLE 04/15/2014 1cm defect - ventralex ST small mesh LAPS SURG CHOLECYSTECTOMY W/CHOLANGIOGRAPHY 12/27/2010 Normal IOC S TUBAL LIGATION 03/2014 bilateral salpingectomy VAGINAL HYSTERECTOMY UTERUS 250 GM/< 01/19/2016 [facility] ALLERGIES Latex and Penicillins MEDICATIONS doxycycline (VIBRA-TABS) 100 mg tabletTake 1 tablet by mouth twice daily for 10 days.Disp: 20 tabletRfl: 0 famotidine (PEPCID) 20 mg tabletTake by mouth.Disp: Rfl: cholestyramine-sucrose (QUESTRAN) 4 gram powderTake 4 g by mouth three times daily with meals.Disp: 368.76 gRfl: 1 FAMILY HISTORY Problem Relation Age of Onset Diabetes Mother Cancer Mother UTERINE CANCER Hypertension Father Heart Father 4 MD's Melanoma Father metastatic No Known Problems Sister No Known Problems Brother No Known Problems Brother Heart disease Brother at Hypertension Maternal Grandfather Heart Paternal Grandfather Colon Cancer No Family History Social History Tobacco Use Smoking status: Never Smokeless tobacco: Never Vaping Use Vaping Use: Never used Substance Use Topics Alcohol use: Yes Comment: rare occasions. Drug use: No PHYSICAL EXAM BP (P) 112/78 Resp (P) 16 Wt (P) 85.3 kg (188 lb) LMP 12/29/2015 (Exact Date) BMI (P) 28.59 kg/m? General Appearance: well appearing, in no acute distress, alert Pysch: mood and affect broad and appropriate Head: normocephalic, atraumatic Eyes: conjunctiva pink and moist, no icterus, sclera white, non-injected Neck: Thyroid normal size and symmetric without palpable nodules, Neck supple, No adenopathy Lymph nodes: No cervical lymphadenopathy and No supraclavicular lymphadenopathy Lungs: Lungs clear to auscultation. No wheezing, rhonchi, rales. Heart: RRR without murmur, gallop, or rubs. No ectopy Abdomen: Abdomen soft, non-tender. Bowel sounds normal. No masses, organomegaly Extremities: No deformities, edema, skin discoloration, clubbing or cyanosis. Good capillary refill. Musculoskeletal: No joint swelling, deformity, or tenderness Neurological: Gait normal. speech normal, mental status intact, muscle tone normal, muscle strength normal COVID-19 VACCINE(3 - Booster for Pfizer series) due on 04/05/2021 DEPRESSION ASSESSMENT Never done INFLUENZA(Season Ended) due on 10/19/2022 DTAP,TDAP,TD(6 - Td or Tdap) due on 12/09/2023 HEPATITIS C SCREENING Completed HIV SCREENING Completed PAP TESTING Discontinued HPV TESTING Discontinued ASSESSMENT/PLAN: 1. Annual physical exam - ICD9: V70.0, ICD10: Z00.00 (primary diagnosis) - Counseled on healthy diet and regular exercise (more content not included)... 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 Diet: Watches diet for salt (salty snacks, added salt, processed frozen/canned foods), sugary/sweet snacks, unhealthy fats: Yes Caffeine: 1 cup a day Water intake: average of 60 ounces daily Diarrhea post cholecystectomy since 2008. Sees GI for this and is controlled with questran. Recent generalized folliculitis which is being treated with doxycycline which is greatly improving with treatment. REVIEW OF SYSTEMS General: no fevers, no chills, no night sweats, no recurrent infections, no change in appetite, no change in energy, and no significant changes in weight HEENT: no frequent or significant headaches, no changes in hearing, no visual changes, no nose bleeds, no sinus or nasal problems Respiratory: no cough, no wheezing, no shortness of breath, no hemoptysis Cardiovascular: no chest pain, no chest pressure, no palpitations, and no swelling GI: no nausea vomiting or abdominal pain : No history of dysuria, frequency or incontinence Musculoskeletal: Negative for joint pain or swelling, back pain or muscle pain Psych: PHQ2 is 0 Endocrine: no fatigue, no weight gain, no weight loss, no cold intolerance, no heat intolerance, no polyuria, no polyphagia, and no polydipsia Neurologic: No headache, weakness, numbness, tingling, dizziness, memory loss, syncope. 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 Irregular menstrual cycle 08/02/2014 Other abnormal heart sounds Murmur Placental abruption depression 10/25/2009 hemorrhage PAST SURGICAL HISTORY Procedure Laterality Date EGD W/O [facility] SPEC VARICIES INJ 05/22/2022 Mild stomach inflammation LAPAROSCOPY REPAIR INCISIONAL HERNIA REDUCIBLE 04/15/2014 1cm defect - ventralex ST small mesh LAPS SURG CHOLECYSTECTOMY W/CHOLANGIOGRAPHY 12/27/2010 Normal IOC S TUBAL LIGATION 03/2014 bilateral salpingectomy VAGINAL HYSTERECTOMY UTERUS 250 GM/< 01/19/2016 [facility] ALLERGIES Latex and Penicillins MEDICATIONS doxycycline (VIBRA-TABS) 100 mg tablet^Take 1 tablet by mouth twice daily for 10 days.^Disp: 20 tablet^Rfl: 0 famotidine (PEPCID) 20 mg tablet^Take by mouth.^Disp: ^Rfl: cholestyramine-sucrose (QUESTRAN) 4 gram powder^Take 4 g by mouth three times daily with meals.^Disp: 368.76 g^Rfl: 1 FAMILY HISTORY Problem Relation Age of Onset Diabetes Mother Cancer Mother UTERINE CANCER Hypertension Father Heart Father 4 MD's Melanoma Father metastatic No Known Problems Sister No Known Problems Brother No Known Problems Brother Heart disease Brother at Hypertension Maternal Grandfather Heart Paternal Grandfather Colon Cancer No Family History Social History Tobacco Use Smoking status: Never Smokeless tobacco: Never Vaping Use Vaping Use: Never used Substance Use Topics Alcohol use: Yes Comment: rare occasions. Drug use: No PHYSICAL EXAM BP (P) 112/78 Resp (P) 16 Wt (P) 85.3 kg (188 lb) LMP 12/29/2015 (Exact Date) BMI (P) 28.59 kg/m General Appearance: well appearing, in no acute distress, alert Pysch: mood and affect broad and appropriate Head: normocephalic, atraumatic Eyes: conjunctiva pink and moist, no icterus, sclera white, non-injected Neck: Thyroid normal size and symmetric without palpable nodules, Neck supple, No adenopathy Lymph nodes: No cervical lymphadenopathy and No supraclavicular lymphadenopathy Lungs: Lungs clear to auscultation. No wheezing, rhonchi, rales. Heart: RRR without murmur, gallop, or rubs. No ectopy Abdomen: Abdomen soft, non-tender. Bowel sounds normal. No masses, organomegaly Extremities: No deformities, edema, skin discoloration, clubbing or cyanosis. Good capillary refill. Musculoskeletal: No joint swelling, deformity, or tenderness Neurological: Gait normal. speech normal, mental status intact, muscle tone normal, muscle strength normal COVID-19 VACCINE(3 - Booster for Pfizer series) due on 04/05/2021 DEPRESSION ASSESSMENT Never done INFLUENZA(Season Ended) due on 10/19/2022 DTAP,TDAP,TD(6 - Td or Tdap) due on 12/09/2023 HEPATITIS C SCREENING Completed HIV SCREENING Completed PAP TESTING Discontinued HPV TESTING Discontinued ASSESSMENT/PLAN: 1. Annual physical exam - ICD9: V70.0, ICD10: Z00.00 (primary diagnosis) - Counseled on healthy diet and regular exercise - Calcium intake with supplements or by diet of 1000 mg/day for under 50, 0742-5527 mg/day for 50+ - Discussed need and benefit for weight loss. No weight on file for this encounter. - Depression screening tool completed and reviewed with patient. Based on score and interview, patient is already diagnosed with depression and recommended no further intervention at this time. - Follow up for annual exam in one year 2. Alternating constipation and diarrhea - ICD9: 787.99, ICD10: R19.8 - continue with the questran as ordered by GI and following up as recommended by them. 3. Folliculitis - ICD9: 704.8, ICD10: L73.9 - resolving with treatment - complete doxycycline as ordered 4. Immunization due - ICD9: V05.9, ICD10: Z23 - negative for MUMPs immunization - MMR VACCINE (M-M-R II, PRIORIX) Prescription instructions reviewed with patient as applicable. Potential red flag symptoms discussed with the patient. Reviewed appropriate action plan to take if red flag symptoms occur. Patient agreeable to treatment plan. Marietta Ortiz APRN.CNP documented in this encounter [facility] 06-11-2022 Note HNO ID: [id number] Author: Bonny Farnsworth APRN.CNP Service: ? Author Type: Nurse Practitioner Type: Progress Notes Filed: 06/11/2022 10:22 AM Note Text: Subjective She came in with complaints of itching rash on bilateral legs abdomen back and bilateral arms. Patient says she was recently in a hot tub. Patient says it does itch. Patient denies any other symptoms at this time. Patient denies any new lotions soaps detergents shampoos clothing. The history is provided by the patient. No sign language translator was used. Rash Review of Systems Constitutional: Negative. Skin: Positive for itching and rash. Objective Physical Exam Constitutional: Appearance: Normal appearance. Pulmonary: Effort: Pulmonary effort is normal. Skin: Findings: Rash present. Rash is macular and papular. Neurological: Mental Status: She is alert. 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 Irregular menstrual cycle 08/02/2014 Other abnormal heart sounds Murmur Placental abruption depression 10/25/2009 hemorrhage PAST SURGICAL HISTORY Procedure Laterality Date EGD W/O BRSH SPEC VARICIES INJ 05/22/2022 Mild stomach inflammation LAPAROSCOPY REPAIR INCISIONAL HERNIA REDUCIBLE 04/15/2014 1cm defect - ventralex ST small mesh LAPS SURG CHOLECYSTECTOMY W/CHOLANGIOGRAPHY 12/27/2010 Normal IOC S TUBAL LIGATION 03/2014 bilateral salpingectomy VAGINAL HYSTERECTOMY UTERUS 250 GM/< 01/19/2016 [facility] ALLERGIES Latex and Penicillins MEDICATIONS famotidine (PEPCID) 20 mg tabletTake by mouth.Disp: Rfl: cholestyramine-sucrose (QUESTRAN) 4 gram powderTake 4 g by mouth three times daily with meals.Disp: 368.76 gRfl: 1 doxycycline (VIBRA-TABS) 100 mg tabletTake 1 tablet by mouth twice daily for 10 days.Disp: 20 tabletRfl: 0 FAMILY HISTORY Problem Relation Age of Onset Diabetes Mother Cancer Mother UTERINE CANCER Hypertension Father Heart Father 4 MD's Melanoma Father metastatic No Known Problems Sister No Known Problems Brother No Known Problems Brother Heart disease Brother at Hypertension Maternal Grandfather Heart Paternal Grandfather Colon Cancer No Family History Social History Tobacco Use Smoking status: Never Smokeless tobacco: Never Vaping Use Vaping Use: Never used Substance Use Topics Alcohol use: Yes Comment: rare occasions. Drug use: No ASSESSMENT/PLAN: 1. Folliculitis - ICD9: 704.8, ICD10: L73.9 - DOXYCYCLINE HYCLATE 100 MG TABLET Patient was instructed about proper use of medication and supportive therapies. Patient will take [id number]-[id number] antihistamines to help with itching. Patient will follow up with signs and symptoms seem to be getting worse not better. Patient was okay with this care plan Bonny Farnsworth APRN.[facility] 04-24-2023 History of Presen t illness Narrative Images from the original note were not included. Subjective She came in with complaints of itching rash on bilateral legs abdomen back and bilateral arms. Patient says she was recently in a hot tub. Patient says it does itch. Patient denies any other symptoms at this time. Patient denies any new lotions soaps detergents shampoos clothing. The history is provided by the patient. No sign language translator was used. Rash Review of Systems Constitutional: Negative. Skin: Positive for itching and rash. Objective Physical Exam Constitutional: Appearance: Normal appearance. Pulmonary: Effort: Pulmonary effort is normal. Skin: Findings: Rash present. Rash is macular and papular. Neurological: Mental Status: She is alert. 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 Irregular menstrual cycle 08/02/2014 Other abnormal heart sounds Murmur Placental abruption depression 10/25/2009 hemorrhage PAST SURGICAL HISTORY Procedure Laterality Date EGD W/O BRSH SPEC VARICIES INJ 05/22/2022 Mild stomach inflammation LAPAROSCOPY REPAIR INCISIONAL HERNIA REDUCIBLE 04/15/2014 1cm defect - ventralex ST small mesh LAPS SURG CHOLECYSTECTOMY W/CHOLANGIOGRAPHY 12/27/2010 Normal IOC S TUBAL LIGATION 03/2014 bilateral salpingectomy VAGINAL HYSTERECTOMY UTERUS 250 GM/< 01/19/2016 [facility] ALLERGIES Latex and Penicillins MEDICATIONS famotidine (PEPCID) 20 mg tablet^Take by mouth.^Disp: ^Rfl: cholestyramine-sucrose (QUESTRAN) 4 gram powder^Take 4 g by mouth three times daily with meals.^Disp: 368.76 g^Rfl: 1 doxycycline (VIBRA-TABS) 100 mg tablet^Take 1 tablet by mouth twice daily for 10 days.^Disp: 20 tablet^Rfl: 0 FAMILY HISTORY Problem Relation Age of Onset Diabetes Mother Cancer Mother UTERINE CANCER Hypertension Father Heart Father 4 MD's Melanoma Father metastatic No Known Problems Sister No Known Problems Brother No Known Problems Brother Heart disease Brother at Hypertension Maternal Grandfather Heart Paternal Grandfather Colon Cancer No Family History Social History Tobacco Use Smoking status: Never Smokeless tobacco: Never Vaping Use Vaping Use: Never used Substance Use Topics Alcohol use: Yes Comment: rare occasions. Drug use: No ASSESSMENT/PLAN: 1. Folliculitis - ICD9: 704.8, ICD10: L73.9 - DOXYCYCLINE HYCLATE 100 MG TABLET Patient was instructed about proper use of medication and supportive therapies. Patient will take [id number] antihistamines to help with itching. Patient will follow up with signs and symptoms seem to be getting worse not better. Patient was okay with this care plan Bonny Farnsworth APRN.[facility] documented in this encounter [facility] 06-01-2022 Note HNO ID: [id number] Author: RT Ellen(Radha) Service: Radiology Author Type: Technologist Type: Progress Notes Filed: 06/01/2022 9:18 AM Note Text: Radiology Service Progress Note PATIENT NAME: Smitha Hayes DATE OF SERVICE: June 01, 2022 TIME: 9:17 AM PATIENT IDENTITY VERIFICATION COMPLETED USING TWO (2) IDENTIFIERS: Name and Date of confirmed by patient verbally. FALL SCREENING: Has the patient had 2 falls in the last year or 1 fall with injury or currently using an Ambulatory Assistive Device (Walker, Cane, Wheelchair, Crutches, etc.)? No PATIENT GENDER DATA: Female. status: : No status: NO. PATIENT RELEVANT IMPLANT DATA REVIEWED: Not Applicable RADIOLOGY DEPARTMENT: General X-ray: Exam(s) Completed: GI/ Procedure(s): Esophogram with barium contrast PERIPHERAL IV DATA: Not applicable SIGNED BY: RT Ellen(R) June 01, 2022 9:17 AM [facility] 06-01-2022 History of Presen t illness Narrative Radiology Service Progress Note PATIENT NAME: Smitha Hayes DATE OF SERVICE: June 01, 2022 TIME: 9:17 AM PATIENT IDENTITY VERIFICATION COMPLETED USING TWO (2) IDENTIFIERS: Name and Date of confirmed by patient verbally. FALL SCREENING: Has the patient had 2 falls in the last year or 1 fall with injury or currently using an Ambulatory Assistive Device (Walker, Cane, Wheelchair, Crutches, etc.)? No PATIENT GENDER DATA: Female. status: : No status: NO. PATIENT RELEVANT IMPLANT DATA REVIEWED: Not Applicable RADIOLOGY DEPARTMENT: General X-ray: Exam(s) Completed: GI/ Procedure(s): Esophogram with barium contrast PERIPHERAL IV DATA: Not applicable SIGNED BY: RT Ellen(R) June 01, 2022 9:17 AM documented in this encounter [facility] 05-30-2022 Note HNO ID: [id number] Author: Musa Robledo MD Service: ? Author Type: Physician Type: Progress Notes Filed: 05/30/2022 12:33 PM Note Text: Patient presents with: Sore Throat: head congestion, cough and headache x 2 days HPI: Feeling sick since yesterday. Her daughter and son have strep throat. Positive symptoms: little Cough, Sore throat, Headache, Nasal Congestion, Negative symptoms: Fever, Vomiting, Diarrhea, OTC: none Had EGD last week. MEDICATIONS: Current Outpatient Medications Medication Sig famotidine (PEPCID) 20 mg tablet Take by mouth. cholestyramine-sucrose (QUESTRAN) 4 gram powder Take 4 g by mouth three times daily with meals. No current facility-administered medications for this visit. Facility-Administered Medications Ordered in Other Visits Medication Dose Route Frequency lidocaine (PF) 10 mg/mL (1 %) 1-2 mg injection (XYLOCAINE) 0.1-0.2 mL INTRADERMAL PRN lactated ringers iv infusion 30 mL/hr INTRAVENOUS CONTINUOUS ALLERGIES: ALLERGIES Allergen Reactions Latex Rash Penicillins Hives VITALS: BP 130/76 Pulse 68 Temp 37 ?C (98.6 ?F) Resp 16 Wt 84.8 kg (187 lb) LMP 12/29/2015 (Exact Date) SpO2 100% BMI 28.43 kg/m? PHYSICAL EXAM: GEN: mildly ill appearing HEENT: PERRL, EOMI, conjunctiva clear Ears: canals clear. TMs without erythema, bulge, or effusion Sinuses: non-tender frontal sinus, non-tender maxillary sinuses Throat: moist mucous membranes, mild erythema, no exudate Neck: supple, no thyromegaly, no lymphadenopathy HEART: regular rate and rhythm, no murmurs LUNGS: clear to auscultation, no wheezes or crackles, no increased WOB ASSESSMENT/PLAN: 1. Streptococcal pharyngitis - ICD9: 034.0, ICD10: J02.0 (primary diagnosis) 2. Sore throat - ICD9: 462, ICD10: J02.9 - Alere Strep Test positive - Discussed supportive care treatment with as needed analgesia. - Contagious disease precautions discussed- including considered contagious until on antibiotics for 24 hours - STREP A MOLECULAR (POC) - CEPHALEXIN 500 MG CAPSULE Musa Robledo MD [facility] 05-30-2022 History of Presen t illness Narrative Patient presents with: Sore Throat: head congestion, cough and headache x 2 days HPI: Feeling sick since yesterday. Her daughter and son have strep throat. Positive symptoms: little Cough, Sore throat, Headache, Nasal Congestion, Negative symptoms: Fever, Vomiting, Diarrhea, OTC: none Had EGD last week. MEDICATIONS: Current Outpatient Medications Medication Sig famotidine (PEPCID) 20 mg tablet Take by mouth. cholestyramine-sucrose (QUESTRAN) 4 gram powder Take 4 g by mouth three times daily with meals. No current facility-administered medications for this visit. Facility-Administered Medications Ordered in Other Visits Medication Dose Route Frequency lidocaine (PF) 10 mg/mL (1 %) 1-2 mg injection (XYLOCAINE) 0.1-0.2 mL INTRADERMAL PRN lactated ringers iv infusion 30 mL/hr INTRAVENOUS CONTINUOUS ALLERGIES: ALLERGIES Allergen Reactions Latex Rash Penicillins Hives VITALS: BP 130/76 Pulse 68 Temp 37 C (98.6 F) Resp 16 Wt 84.8 kg (187 lb) LMP 12/29/2015 (Exact Date) SpO2 100% BMI 28.43 kg/m PHYSICAL EXAM: GEN: mildly ill appearing HEENT: PERRL, EOMI, conjunctiva clear Ears: canals clear. TMs without erythema, bulge, or effusion Sinuses: non-tender frontal sinus, non-tender maxillary sinuses Throat: moist mucous membranes, mild erythema, no exudate Neck: supple, no thyromegaly, no lymphadenopathy HEART: regular rate and rhythm, no murmurs LUNGS: clear to auscultation, no wheezes or crackles, no increased WOB ASSESSMENT/PLAN: 1. Streptococcal pharyngitis - ICD9: 034.0, ICD10: J02.0 (primary diagnosis) 2. Sore throat - ICD9: 462, ICD10: J02.9 - Alere Strep Test positive - Discussed supportive care treatment with as needed analgesia. - Contagious disease precautions discussed- including considered contagious until on antibiotics for 24 hours - STREP A MOLECULAR (POC) - CEPHALEXIN 500 MG CAPSULE Musa Robledo MD documented in this encounter [facility] 05-22-2022 Note HNO ID: [id number] Author: Maggi Murguia RN Service: ? Author Type: Registered Nurse Type: Nursing Progress Note Filed: 05/22/2022 9:14 AM Note Text: Dr. Jade at bedside to discuss procedure/findings with patient and her . [facility] 05-16-2022 Note HNO ID: [id number] Author: Rachel Obregon PA-C Service: ? Author Type: Physician [place] Type: Progress Notes Filed: 05/16/2022 1:11 PM Note Text: CHIEF COMPLAINT: Patient presents with: odynophagia: Seen in the ER 03/27/22 notes in [facility]. HPI: Smitha Hayes is a 32 year old female who presents for odynophagia (Seen in the ER 03/27/22 notes in [facility] Seen in ER for odynophagia, CXR normal, discharged with Pepcid which she feels is helping somewhat. Experiencing burning sensations with swallowing. Admits to altered bowel habits, cramping since cholecystectomy in 2010. Has tried Questran in the past, does not remember result with this. Takes Ibuprofen 1x per week. Denies globus sensations, unintentional weight loss, emesis, choking, regurgitation, dysphagia. CXR 03/2022 normal Component Latest Ref Rng AND Units 01/16/2022 WBC 3.70 - 11.00 k/uL 10.02 RBC 3.90 - 5.20 m/uL 4.94 Hemoglobin 11.5 - 15.5 g/dL 14.8 Hematocrit 36.0 - 46.0 % 42.5 MCV 80.0 - 100.0 fL 86.0 MCH 26.0 - 34.0 pg 30.0 MCHC 30.5 - 36.0 g/dL 34.8 RDW-CV 11.5 - 15.0 % 13.2 Platelet Count 150 - 400 k/uL 292 MPV 9.0 - 12.7 fL 10.1 Neut% % 69.5 Abs Neut (ANC) 1.45 - 7.50 k/uL 6.97 Lymph% % 21.8 Abs Lymph 1.00 - 4.00 k/uL 2.18 Throckmorton% % 5.5 Abs [place]mort[place] <0.87 k/uL 0.55 Eosin% % 2.3 Abs Eosin <0.46 k/uL 0.23 Baso% % 0.7 Abs Baso <0.11 k/uL 0.07 Immature Gran % % 0.2 IMMATURE GRANS (ABS) <0.10 k/uL <0.03 NRBC /100 WBC 0.0 Absolute nRBC <0.01 k/uL <0.01 DTYPE Auto Protein, Total 6.3 - 8.0 g/dL 7.1 Albumin 3.9 - 4.9 g/dL 4.7 Calcium 8.5 - 10.2 mg/dL 9.3 Bilirubin, Total 0.2 - 1.3 mg/dL 0.6 Alkaline Phosphatase 34 - 123 U/L 67 AST 13 - 35 U/L 16 ALT 7 - 38 U/L 18 Glucose 74 - 99 mg/dL 101 (H) BUN 7 - 21 mg/dL 11 Creatinine 0.58 - 0.96 mg/dL 0.68 Sodium 136 - 144 mmol/L 139 Potassium 3.7 - 5.1 mmol/L 4.1 Chloride 97 - 105 mmol/L 105 CO2 22 - 30 mmol/L 25 Anion Gap 9 - 18 mmol/L 9 eGFR >=60 mL/min/1.73mA? 119 Record Review: [facility] / Outside records reviewed. 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 FAMILY HISTORY Problem Relation Age of Onset Diabetes Mother Cancer Mother UTERINE CANCER Hypertension Father Heart Father 4 MD's Melanoma Father metastatic No Known Problems Sister No Known Problems Brother No Known Problems Brother Heart disease Brother at Hypertension Maternal Grandfather Heart Paternal Grandfather Colon Cancer No Family History Employer And Job Title: [employer] ([employer]) Years Of Education Completed: 12 years Marital Status: with 3 children Social History Tobacco Use Smoking status: Never Smokeless tobacco: Never Vaping Use Vaping Use: Never used Substance Use Topics Alcohol use: Yes Comment: rare occasions. Drug use: No Review of Systems: Review of Systems HENT: Positive for trouble swallowing. Gastrointestinal: Positive for nausea. Heartburn All other systems reviewed and are negative. Are you taking any blood thinners? No Physical Examination: BP 116/80 Pulse 80 Ht 172.7 cm (5' 8 ) Wt 86.2 kg (190 lb) LMP 12/29/2015 (Exact Date) BMI 28.89 kg/m? Physical Exam Constitutional: General: She is not in acute distress. Appearance: Normal appearance. She is normal weight. She is not ill-appearing, toxic-appearing or diaphoretic. HENT: Head: Normocephalic and atraumatic. Nose: Nose normal. Eyes: General: No scleral icterus. Right eye: No discharge. Left eye: No discharge. Extraocular Movements: Extraocular movements intact. Conjunctiva/sclera: Conjunctivae normal. Pupils: Pupils are equal, round, and reactive to light. Cardiovascular: Rate and Rhythm: Normal rate and regular rhythm. Pulses: Normal pulses. Heart sounds: Normal heart sounds. No murmur heard. No friction rub. No gallop. Pulmonary: Effort: No respiratory distress. Breath sounds: Normal breath sounds. No stridor. No wheezing, rhonchi or rales. Chest: Chest wall: No tenderness. Abdominal: General: Abdomen is flat. Bowel sounds are normal. There is no distension. Palpations: Abdomen is soft. There is no (more content not included)... [facility] 05-16-2022 Instructions Rachel Obregon PA-C - 05/16/2022 1:09 PM EDT Images from the original note were not included. Gastroesophageal Reflux Disease (GERD) Heartburn is a burning sensation in the center of your chest that often occurs after you eat, bend over, exercise, and sometimes at night when you are lying down. Approximately one in 10 adults has heartburn at least once a week and one in three monthly. Some women experience heartburn almost daily as a result of increased pressure on the abdomen and hormonal changes. Despite its name, heartburn has nothing to do with your heart. Heartburn symptoms indicate a condition called gastroesophageal reflux disease, or GERD. This fact sheet offers some tips on how to relieve heartburn caused by this condition. What is GERD? When you swallow, food passes down your throat and through your esophagus to your stomach. A muscle called the lower esophageal sphincter controls the opening between the esophagus and the stomach. The muscle remains tightly closed except when you swallow food. When this muscle fails to close, the acid-containing contents of the stomach can travel back up into the esophagus. This backward movement is called reflux. When stomach acid enters the lower part of the esophagus, it can produce a burning sensation, commonly referred to as heartburn. Several factors might explain why this reflux action occurs and might offer some clues for relief. The most important are: The position of your body after eating (An upright posture helps prevent reflux.) The size of the meal (Smaller meals reduce reflux.) The nature of foods you consume (Certain substances that irritate the esophagus or weaken the sphincter can cause reflux.) How is GERD treated? To treat GERD, we recommend the following: Raise the head of your bed by six inches to allow gravity to help keep the stomach's contents in the stomach. (Do not use piles of pillows because this puts your body into a bent position that actually aggravates the condition by increasing pressure on the abdomen.) Eat meals at least three to four hours before lying down, and avoid bedtime snacks. Eat moderate portions of food and smaller meals. Maintain a healthy weight to eliminate unnecessary intra-abdominal pressure caused by extra pounds. Limit consumption of fatty foods, chocolate, peppermint, coffee, tea, ivy, and alcohol - all of which relax the lower esophageal sphincter. Also, avoid tomatoes and citrus fruits or juices, which contribute additional acid that can irritate the esophagus. Give up smoking, which also relaxes the lower esophageal sphincter. Wear loose belts and clothing. What if my GERD and heartburn persist? Many people will get relief from heartburn, and the pressure that goes with esophageal reflux, by following the tips above. Sgup-zqr-xruymyo liquid antacids can also help in treating occasional heartburn. If your symptoms persist, do not respond to treatment, or occur often, you need to see a doctor for testing and treatment. A visual examination of the esophagus, known as an endoscopy, might be necessary. Sometimes this test shows that the lining of the esophagus is severely inflamed and irritated by stomach acid. This condition, known as esophagitis, might lead to bleeding and difficulty in swallowing. Medical treatment for this condition might be necessary. This usually involves blocking acid production in the stomach. Qpmq-vvk-zexeoxo medicines, such as Tums , Rolaids , Maalox , Zantac , Tagamet , Prilosec, ,Pepcid , and Axid , can generally relieve esophageal reflux symptoms. Patients with more severe symptoms or those who have been using antacids for more than two weeks should contact their doctors, who can prescribe medicines to control or eliminate acid, such as H2-receptor antagonists and proton pump inhibitors. Only a few people need surgery to correct the disorder. documented in this encounter [facility] 05-16-2022 History of Presen t illness Narrative CHIEF COMPLAINT: Patient presents with: odynophagia: Seen in the ER 03/27/22 notes in [facility]. HPI: Smitha Hayes is a 32 year old female who presents for odynophagia (Seen in the ER 03/27/22 notes in [facility].). Seen in ER for odynophagia, CXR normal, discharged with Pepcid which she feels is helping somewhat. Experiencing burning sensations with swallowing. Admits to altered bowel habits, cramping since cholecystectomy in 2010. Has tried Questran in the past, does not remember result with this. Takes Ibuprofen 1x per week. Denies globus sensations, unintentional weight loss, emesis, choking, regurgitation, dysphagia. CXR 03/2022 normal Component Latest Ref Rng & Units 01/16/2022 WBC 3.70 - 11.00 k/uL 10.02 RBC 3.90 - 5.20 m/uL 4.94 Hemoglobin 11.5 - 15.5 g/dL 14.8 Hematocrit 36.0 - 46.0 % 42.5 MCV 80.0 - 100.0 fL 86.0 MCH 26.0 - 34.0 pg 30.0 MCHC 30.5 - 36.0 g/dL 34.8 RDW-CV 11.5 - 15.0 % 13.2 Platelet Count 150 - 400 k/uL 292 MPV 9.0 - 12.7 fL 10.1 Neut% % 69.5 Abs Neut (ANC) 1.45 - 7.50 k/uL 6.97 Lymph% % 21.8 Abs Lymph 1.00 - 4.00 k/uL 2.18 Th[place]morton% % 5.5 Abs [place] <0.87 k/uL 0.55 Eosin% % 2.3 Abs Eosin <0.46 k/uL 0.23 Baso% % 0.7 Abs Baso <0.11 k/uL 0.07 Immature Gran % % 0.2 IMMATURE GRANS (ABS) <0.10 k/uL <0.03 NRBC /100 WBC 0.0 Absolute nRBC <0.01 k/uL <0.01 DTYPE Auto Protein, Total 6.3 - 8.0 g/dL 7.1 Albumin 3.9 - 4.9 g/dL 4.7 Calcium 8.5 - 10.2 mg/dL 9.3 Bilirubin, Total 0.2 - 1.3 mg/dL 0.6 Alkaline Phosphatase 34 - 123 U/L 67 AST 13 - 35 U/L 16 ALT 7 - 38 U/L 18 Glucose 74 - 99 mg/dL 101 (H) BUN 7 - 21 mg/dL 11 Creatinine 0.58 - 0.96 mg/dL 0.68 Sodium 136 - 144 mmol/L 139 Potassium 3.7 - 5.1 mmol/L 4.1 Chloride 97 - 105 mmol/L 105 CO2 22 - 30 mmol/L 25 Anion Gap 9 - 18 mmol/L 9 eGFR >=60 mL/min/1.73m 119 Record Review: [facility] / Outside records reviewed. 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 FAMILY HISTORY Problem Relation Age of Onset Diabetes Mother Cancer Mother UTERINE CANCER Hypertension Father Heart Father 4 MD's Melanoma Father metastatic No Known Problems Sister No Known Problems Brother No Known Problems Brother Heart disease Brother at Hypertension Maternal Grandfather Heart Paternal Grandfather Colon Cancer No Family History Employer And Job Title: [employer] happin![employer]) Years Of Education Completed: 12 years Marital Status: with 3 children Social History Tobacco Use Smoking status: Never Smokeless tobacco: Never Vaping Use Vaping Use: Never used Substance Use Topics Alcohol use: Yes Comment: rare occasions. Drug use: No Review of Systems: Review of Systems HENT: Positive for trouble swallowing. Gastrointestinal: Positive for nausea. Heartburn All other systems reviewed and are negative. Are you taking any blood thinners? No Physical Examination: BP 116/80 Pulse 80 Ht 172.7 cm (5' 8 ) Wt 86.2 kg (190 lb) LMP 12/29/2015 (Exact Date) BMI 28.89 kg/m Physical Exam Constitutional: General: She is not in acute distress. Appearance: Normal appearance. She is normal weight. She is not ill-appearing, toxic-appearing or diaphoretic. HENT: Head: Normocephalic and atraumatic. Nose: Nose normal. Eyes: General: No scleral icterus. Right eye: No discharge. Left eye: No discharge. Extraocular Movements: Extraocular movements intact. Conjunctiva/sclera: Conjunctivae normal. Pupils: Pupils are equal, round, and reactive to light. Cardiovascular: Rate and Rhythm: Normal rate and regular rhythm. Pulses: Normal pulses. Heart sounds: Normal heart sounds. No murmur heard. No friction rub. No gallop. Pulmonary: Effort: No respiratory distress. Breath sounds: Normal breath sounds. No stridor. No wheezing, rhonchi or rales. Chest: Chest wall: No tenderness. Abdominal: General: Abdomen is flat. Bowel sounds are normal. There is no distension. Palpations: Abdomen is soft. There is no mass. Tenderness: There is no abdominal tenderness. There is no right CVA tenderness, left CVA tenderness, guarding or rebound. Hernia: No hernia is present. Musculoskeletal: General: Normal range of motion. Cervical back: Normal range of motion and neck supple. Skin: General: Skin is warm and dry. Neurological: General: No focal deficit present. Mental Status: She is alert and oriented to person, place, and time. Psychiatric: Mood and Affect: Mood normal. Behavior: Behavior normal. Assessment/Plan (R13.10) Odynophagia (primary encounter diagnosis) (R19.4) Altered bowel habits 1. Odynophagia - EGD DIAGNOSTIC; Future - Continue Pepcid - Declined additional medications at this time, would like to wait until EGD - Provided printed edu handout regarding GERD precautions - EGD to r/o esophageal ulceration, GERD, PUD, H. Pylori, Celiac 2. Altered bowel habits - cholestyramine-sucrose (QUESTRAN) 4 gram powder; Take 4 g by mouth three times daily with meals. Dispense: 368.76 g; Refill: 1 - Altered bowels started immediately after cholecystectomy 2010, likely bile salt induced will trial Questran TID I spent a total of 20 minutes on the date of the service which included preparing to see the patient, [id number] patient care, completing clinical documentation, obtaining and/or reviewing separately obtained history, performing a medically appropriate examination, counseling and educating the patient/family/caregiver, ordering medications, tests, or procedures, communicating with other HCPs (not separately reported), independently interpreting results (not separately reported), communicating results to the patient/family/caregiver, and care coordination (not separately reported). Rachel Obregon PA-C May 16, 2022 1:07 PM documented in this encounter [facility] 03-27-2022 Note HNO ID: [id number] Author: Cheyanne Jefferson APRN.MARRIAGE AND FAMILY THERAPIST Service: ? Author Type: Nurse Specialist Type: Progress Notes Filed: 03/27/2022 10:43 AM Note Text: SUBJECTIVE: COVID-19 VACCINE(3 - Booster for Pfizer series) due on 04/05/2021 INFLUENZA(1) due on 10/19/2021 DEPRESSION ASSESSMENT Never done HPI Smitha Hayes is a 32 year old female. PMH significant for ACTIVE PROBLEM LIST History of Depression Obesity, Class I, Bmi 30-34.9 Anxiety Insomnia Due to Other Mental Disorder PCP: Idris Mena MD She presents with report of chest pain present since 3 AM this morning. She reports substernal chest pain described as an ache of mild to moderate in intensity that awoke her from sleep this morning that is constant. No complaints present prior to this. Notes that she has severe pain with swallowing and deep breathing that is intermittent. No increased pain with exertion. No reported associated symptoms of shortness of breath palpitations edema presyncope or syncope. No prior occurrence. She notes symptoms are worse with drinking fluids and deep breathing. Nothing has made the pain better. She reports pain with deep breaths and pain in her throat. No known cardiac history. Father has history of heart disease. 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 Trivial MR, TR, no valvular stenosis ASD or VSD was seen. Review of Systems Cardiovascular: Positive for chest pain. Objective BP 116/80 Pulse 74 Resp 16 Wt 85.7 kg (189 lb) LMP 12/29/2015 (Exact Date) SpO2 99% BMI 28.74 kg/m? Physical Exam Vitals and nursing note reviewed. Constitutional: Appearance: Normal appearance. HENT: Head: Normocephalic and atraumatic. Eyes: Conjunctiva/sclera: Conjunctivae normal. Cardiovascular: Rate and Rhythm: Normal rate and regular rhythm. Heart sounds: Normal heart sounds. Comments: Some discomfort on palpation of sternum Pulmonary: Effort: Pulmonary effort is normal. No respiratory distress. Breath sounds: Normal breath sounds. Abdominal: General: Bowel sounds are normal. Palpations: Abdomen is soft. Musculoskeletal: Right lower leg: No edema. Left lower leg: No edema. Skin: General: Skin is warm and dry. Neurological: General: No focal deficit present. Mental Status: She is alert and oriented to person, place, and time. ALLERGIES Allergen Reactions Latex Rash Penicillins Hives No prescriptions on file. PAST MEDICAL HISTORY Diagnosis Date Anemia Anxiety 05/26/2019 Depression 2003 FRACTURE 01/2012 SACRUM, TAILBONE FX Insomnia due to other mental disorder 05/26/2019 Irregular menstrual cycle 08/02/2014 Other abnormal heart sounds Murmur Placental abruption depression 10/25/2009 hemorrhage Social History Tobacco Use Smoking status: Never Smokeless tobacco: Never Vaping Use Vaping Use: Never used Substance Use Topics Alcohol use: Yes Comment: rare occasions. Drug use: No ASSESSMENT/PLAN: 1. Substernal chest pain - ICD9: 786.51, ICD10: R07.2 (primary diagnosis) 2. Chest pain varying with breathing - ICD9: 786.50, ICD10: R07.1 3. Pain in throat and chest - ICD9: 784.1, 786.50, ICD10: R07.0, R07.9 She presents with report of constant dull ache of substernal chest pain, throat pain. She has severe chest pain with swallowing and deep breathing since 3 AM this morning. She is referred to emergency department for further evaluation and treatment as indicated. She prefers to take private transport, declines EMS. Prefers [facility] rather than [facility] ER. [facility] ER passport completed. Faxed records. Cheyanne Jefferson APRN.MARRIAGE AND FAMILY THERAPIST Medical Decision Making: Problems: Moderate: Acute illness with systemic symptoms Data: Discussed management or test w/ external physician/QHCP/source Medical Decision Making Level: 4 - Moderate [facility] 03-27-2022 History of Presen t illness Narrative SUBJECTIVE: COVID-19 VACCINE(3 - Booster for Pfizer series) due on 04/05/2021 INFLUENZA(1) due on 10/19/2021 DEPRESSION ASSESSMENT Never done HPI Smitha Hayes is a 32 year old female. PMH significant for ACTIVE PROBLEM LIST History of Depression Obesity, Class I, Bmi 30-34.9 Anxiety Insomnia Due to Other Mental Disorder PCP: Idris Mena MD She presents with report of chest pain present since 3 AM this morning. She reports substernal chest pain described as an ache of mild to moderate in intensity that awoke her from sleep this morning that is constant. No complaints present prior to this. Notes that she has severe pain with swallowing and deep breathing that is intermittent. No increased pain with exertion. No reported associated symptoms of shortness of breath palpitations edema presyncope or syncope. No prior occurrence. She notes symptoms are worse with drinking fluids and deep breathing. Nothing has made the pain better. She reports pain with deep breaths and pain in her throat. No known cardiac history. Father has history of heart disease. 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 Trivial MR, TR, no valvular stenosis ASD or VSD was seen. Review of Systems Cardiovascular: Positive for chest pain. Objective BP 116/80 Pulse 74 Resp 16 Wt 85.7 kg (189 lb) LMP 12/29/2015 (Exact Date) SpO2 99% BMI 28.74 kg/m Physical Exam Vitals and nursing note reviewed. Constitutional: Appearance: Normal appearance. HENT: Head: Normocephalic and atraumatic. Eyes: Conjunctiva/sclera: Conjunctivae normal. Cardiovascular: Rate and Rhythm: Normal rate and regular rhythm. Heart sounds: Normal heart sounds. Comments: Some discomfort on palpation of sternum Pulmonary: Effort: Pulmonary effort is normal. No respiratory distress. Breath sounds: Normal breath sounds. Abdominal: General: Bowel sounds are normal. Palpations: Abdomen is soft. Musculoskeletal: Right lower leg: No edema. Left lower leg: No edema. Skin: General: Skin is warm and dry. Neurological: General: No focal deficit present. Mental Status: She is alert and oriented to person, place, and time. ALLERGIES Allergen Reactions Latex Rash Penicillins Hives No prescriptions on file. PAST MEDICAL HISTORY Diagnosis Date Anemia Anxiety 05/26/2019 Depression 2003 FRACTURE 01/2012 SACRUM, TAILBONE FX Insomnia due to other mental disorder 05/26/2019 Irregular menstrual cycle 08/02/2014 Other abnormal heart sounds Murmur Placental abruption depression 10/25/2009 hemorrhage Social History Tobacco Use Smoking status: Never Smokeless tobacco: Never Vaping Use Vaping Use: Never used Substance Use Topics Alcohol use: Yes Comment: rare occasions. Drug use: No ASSESSMENT/PLAN: 1. Substernal chest pain - ICD9: 786.51, ICD10: R07.2 (primary diagnosis) 2. Chest pain varying with breathing - ICD9: 786.50, ICD10: R07.1 3. Pain in throat and chest - ICD9: 784.1, 786.50, ICD10: R07.0, R07.9 She presents with report of constant dull ache of substernal chest pain, throat pain. She has severe chest pain with swallowing and deep breathing since 3 AM this morning. She is referred to emergency department for further evaluation and treatment as indicated. She prefers to take private transport, declines EMS. Prefers [facility] rather than [facility] ER. [facility] ER passport completed. Faxed records. Cheyanne Jefferson APRN.CNS Medical Decision Making: Problems: Moderate: Acute illness with systemic symptoms Data: Discussed management or test w/ external physician/QHCP/source Medical Decision Making Level: 4 - Moderate documented in this encounter [facility] 01-18-2022 Note HNO ID: [id number] Author: Lu Salazar RDMS Service: ? Author Type: Director Life Sales Type: Progress Notes Filed: 01/18/2022 3:22 PM Note Text: Radiology Service Progress Note PATIENT NAME: Smitha Hayes DATE OF SERVICE: January 18, 2022 TIME: 3:22 PM PATIENT IDENTITY VERIFICATION COMPLETED USING TWO (2) IDENTIFIERS: Name and Date of confirmed by patient verbally. FALL SCREENING: Has the patient had 2 falls in the last year or 1 fall with injury or currently using an Ambulatory Assistive Device (Walker, Cane, Wheelchair, Crutches, etc.)? No PATIENT GENDER DATA: Female. status: : No status: NO. PATIENT RELEVANT IMPLANT DATA REVIEWED: Not Applicable RADIOLOGY DEPARTMENT: Ultrasound PERIPHERAL IV DATA: Not applicable SIGNED BY: Lu Salazar RDMS RVT January 18, 2022 3:22 PM [facility] 01-16-2022 Note HNO ID: [id number] Author: Carolyn Ortiz APRN.DENTAL CLAIMS PROCESSOR Service: ? Author Type: Nurse Practitioner Type: Progress Notes Filed: 01/16/2022 1:01 PM Note Text: CC Patient presents with: lower left abdominal pain HPI Smitha Hayes is a 31 year old female who presents with abdominal pain for one week. Constant ache in the LLQ with intermittent stabbing pain, radiates to low back with pressure. Cramping pain with BM and urinating. Alleviating factors: none. Has tried heating pads and ibuprofen which temporarily takes the edge off Associated symptoms: none Denies: blood in stools or black stools, change in bowel habit, diarrhea, heart burn, nausea, vomiting, dysuria, urgency, frequency, hesitancy, bloating, excessive belching Denies history of kidney stones or GI issues. She has had a couple UTI's recently with last one about two months ago. Unsure which antibiotic she was treated with. She was on Cefdinir 01/01 for strep throat. Surgeries: lap ruthann, vaginal hysterectomy but still has ovaries. Endoscopy: None Family history: none REVIEW OF SYSTEMS See HPI PAST MEDICAL HISTORY Diagnosis Date Anemia Anxiety 05/26/2019 Depression 2003 FRACTURE 01/2012 SACRUM, TAILBONE FX Insomnia due to other mental disorder 05/26/2019 Irregular menstrual cycle 08/02/2014 Other abnormal heart sounds Murmur Placental abruption depression 10/25/2009 hemorrhage PAST SURGICAL HISTORY Procedure Laterality Date LAPAROSCOPY REPAIR INCISIONAL HERNIA REDUCIBLE 04/15/14 1cm defect - ventralex ST small mesh LAPS SURG CHOLECYSTECTOMY W/CHOLANGIOGRAPHY 12/27/10 Normal IOC S TUBAL LIGATION 03/2014 bilateral salpingectomy VAGINAL HYSTERECTOMY UTERUS 250 GM/< 01/19/2016 [facility] ALLERGIES Latex and Penicillins MEDICATIONS predniSONE (DELTASONE) 10 mg tablet Take 4 tabs daily for 3 days, then 2 tabs daily for 3 days, then 1 tab daily for 3 days with food. (Patient not taking: Reported on 01/16/2022) FAMILY HISTORY Problem Relation Age of Onset Diabetes Mother Cancer Mother UTERINE CANCER Hypertension Father Heart Father 4 MD's Melanoma Father metastatic No Known Problems Sister No Known Problems Brother No Known Problems Brother Heart disease Brother at Hypertension Maternal Grandfather Heart Paternal Grandfather Social History Tobacco Use Smoking status: Never Smokeless tobacco: Never Vaping Use Vaping Use: Never used Substance Use Topics Alcohol use: Yes Comment: rare occasions. Drug use: No PHYSICAL EXAM BP 136/84 Pulse 84 Resp 14 Wt 87.1 kg (192 lb) LMP 12/29/2015 (Exact Date) BMI 29.19 kg/m? General Appearance: well appearing, in no acute distress, alert Lungs: Lungs clear to auscultation. No wheezing, rhonchi, rales. Heart: RRR without murmur, gallop, or rubs. No ectopy Abdomen: Soft, non-distended. mild left suprapubic tenderness with palpation. No guarding or rebound tenderness. Bowel sounds normal and active. No masses, organomegaly. CVA tenderness absent DATA REVIEWED: Most recent labs ASSESSMENT/PLAN: 1. LLQ abdominal pain - ICD9: 789.04, ICD10: R10.32 Etiology unclear Differential Diagnosis includes Kidney stones/colic, Ovarian cyst, and Cystitis - UA DIP B/O negative Stat work-up with: - CBC + DIFF - COMP METABOLIC PANEL - US FEMALE PELVIS TRANSVAG Follow-up pending results Prescription instructions reviewed with patient as applicable. Potential red flag symptoms discussed with the patient. Reviewed appropriate action plan to take if red flag symptoms occur. Patient agreeable to treatment plan. Carolyn Ortiz APRN.[facility] 01-16-2022 History of Presen t illness Narrative CC Patient presents with: lower left abdominal pain HPI Smitha Hayes is a 31 year old female who presents with abdominal pain for one week. Constant ache in the LLQ with intermittent stabbing pain, radiates to low back with pressure. Cramping pain with BM and urinating. Alleviating factors: none. Has tried heating pads and ibuprofen which temporarily takes the edge off Associated symptoms: none Denies: blood in stools or black stools, change in bowel habit, diarrhea, heart burn, nausea, vomiting, dysuria, urgency, frequency, hesitancy, bloating, excessive belching Denies history of kidney stones or GI issues. She has had a couple UTI's recently with last one about two months ago. Unsure which antibiotic she was treated with. She was on Cefdinir 11/14 for strep throat. Surgeries: lap ruthann, vaginal hysterectomy but still has ovaries. Endoscopy: None Family history: none REVIEW OF SYSTEMS See HPI PAST MEDICAL HISTORY Diagnosis Date Anemia Anxiety 05/26/2019 Depression 2003 FRACTURE 01/2012 SACRUM, TAILBONE FX Insomnia due to other mental disorder 05/26/2019 Irregular menstrual cycle 08/02/2014 Other abnormal heart sounds Murmur Placental abruption depression 10/25/2009 hemorrhage PAST SURGICAL HISTORY Procedure Laterality Date LAPAROSCOPY REPAIR INCISIONAL HERNIA REDUCIBLE 04/15/14 1cm defect - ventralex ST small mesh LAPS SURG CHOLECYSTECTOMY W/CHOLANGIOGRAPHY 12/27/10 Normal IOC S TUBAL LIGATION 03/2014 bilateral salpingectomy VAGINAL HYSTERECTOMY UTERUS 250 GM/< 01/19/2016 [facility] ALLERGIES Latex and Penicillins MEDICATIONS predniSONE (DELTASONE) 10 mg tablet Take 4 tabs daily for 3 days, then 2 tabs daily for 3 days, then 1 tab daily for 3 days with food. (Patient not taking: Reported on 01/16/2022) FAMILY HISTORY Problem Relation Age of Onset Diabetes Mother Cancer Mother UTERINE CANCER Hypertension Father Heart Father 4 MD's Melanoma Father metastatic No Known Problems Sister No Known Problems Brother No Known Problems Brother Heart disease Brother at Hypertension Maternal Grandfather Heart Paternal Grandfather Social History Tobacco Use Smoking status: Never Smokeless tobacco: Never Vaping Use Vaping Use: Never used Substance Use Topics Alcohol use: Yes Comment: rare occasions. Drug use: No PHYSICAL EXAM BP 136/84 Pulse 84 Resp 14 Wt 87.1 kg (192 lb) LMP 12/29/2015 (Exact Date) BMI 29.19 kg/m General Appearance: well appearing, in no acute distress, alert Lungs: Lungs clear to auscultation. No wheezing, rhonchi, rales. Heart: RRR without murmur, gallop, or rubs. No ectopy Abdomen: Soft, non-distended. mild left suprapubic tenderness with palpation. No guarding or rebound tenderness. Bowel sounds normal and active. No masses, organomegaly. CVA tenderness absent DATA REVIEWED: Most recent labs ASSESSMENT/PLAN: 1. LLQ abdominal pain - ICD9: 789.04, ICD10: R10.32 Etiology unclear Differential Diagnosis includes Kidney stones/colic, Ovarian cyst, and Cystitis - UA DIP B/O negative Stat work-up with: - CBC + DIFF - COMP METABOLIC PANEL - US FEMALE PELVIS TRANSVAG Follow-up pending results Prescription instructions reviewed with patient as applicable. Potential red flag symptoms discussed with the patient. Reviewed appropriate action plan to take if red flag symptoms occur. Patient agreeable to treatment plan. Carolyn Ortiz APRN.CNP documented in this encounter [facility] 06-06-2021 Instructions Lu Ramirez APRN.CNP - 06/06/2021 12:54 PM EDT [facility] PATIENT INFO PHARYNGITIS OVERVIEW A sore throat (pharyngitis) is a common problem, and usually is caused by a viral or bacterial infection. Sore throat usually resolves on its own without complications in adults, although it is important to know when to seek medical attention. Viruses can cause a sore throat and other upper respiratory infections, such as the common cold. Sore throat caused by a virus is not treated with antibiotics, but instead may be treated with rest, pain medication, and other therapies aimed at relieving symptoms. Strep throat is a particular kind of pharyngitis that is caused by a bacterium known as group A streptococcus (GAS). Strep throat is treated with a course of antibiotics. SORE THROAT SYMPTOMS Viral pharyngitis Most people with a sore throat have a virus. The most common viruses are those that cause upper respiratory infections, such as the common cold. Symptoms of a viral infection can include: A runny or congested nose Irritation or redness of the eyes Cough, hoarseness, or soreness in the roof of the mouth Some viruses cause a fever and can make you feel quite ill. Strep throat Approximately 10 percent of adults with a sore throat have strep throat. Signs and symptoms of strep throat include the following: Pain in the throat Fever (temperature greater than 100.4 F or 38 C) Enlarged lymph glands in the neck White patches of pus on the side or back of the throat No cough, runny nose, or irritation/redness of the eyes Other infections Many other less common but more serious infections can cause a sore throat, including mononucleosis (mono), influenza (the flu), N. gonococcus (gonorrhea), human immunodeficiency virus (HIV), and others. When to seek urgent help See your doctor or nurse immediately if you have a sore throat along with any of the following: Difficulty breathing Skin rash Drooling because you cannot swallow Swelling of the neck or tongue Stiff neck or difficulty opening the mouth SORE THROAT DIAGNOSIS Most people with a sore throat get better without treatment. There is no specific treatment for a sore throat caused by usual cold viruses. Is it strep or not? A combination of symptoms (fever, enlarged glands in the neck, white patches on your tonsils, and no cough) can help in determining if you have strep. If you have two or more symptoms, a rapid test or throat culture may be done. People with fewer than two symptoms usually do not need testing or treatment for strep throat. Rapid test The rapid test determines if there are streptococcus bacteria on a throat swab. The test can be done in a clinician's office and the results are available within a few minutes. The test is accurate in most cases, although a small percentage of tests are falsely negative (the bacteria are present but the test is negative). Throat culture A throat culture involves swabbing the throat, sending the swab to a laboratory, and waiting 24 to 48 hours for the results. Throat cultures are slightly more accurate than the rapid test. TREATMENT OF SORE THROAT Sore throat treatment Antibiotics do not help throat pain caused by a virus and are not recommended. Sore throat caused by viral infections usually lasts four to five days. During this time, treatments to reduce pain may be helpful. Several therapies can help to relieve throat pain. Pain medication You can treat your throat pain with a mild pain reliever such as acetaminophen (Tylenol ) or a non-steroidal anti-inflammatory agent such as ibuprofen or naproxen (Motrin or Aleve ). Oral rinses Salt-water gargles are an old stand-by for throat pain. It is not clear that salt water works to relieve pain, but it is unlikely to be harmful. Most recipes suggest 1/4 to 1/2 teaspoon of salt per one cup (8 ounces) of warm water. Sprays Sprays containing topical anesthetics (eg, benzocaine, phenol) are available to treat sore throat. However, such sprays are no more effective than sucking on hard candy. Lozenges A variety of lozenges (cough drops) are available to treat throat pain or relieve dryness. However, it is not clear that lozenges work any better than other forms of hard candy, which are generally less expensive. Other treatments Other treatments that may help with throat pain include sipping warm beverages (eg, honey or lemon tea, chicken soup), cold beverages, or eating cold or frozen desserts (eg, ice cream, popsicles). Alternative therapies Health food stores, vitamin outlets, and Internet Web sites offer alternative treatments for relief of sore throat pain. We do not recommend these type of treatments due to the risks of contamination with pesticides/herbicides, inaccurate labeling and dosing information, and a lack of studies showing that these treatments are safe and effective. Strep throat Although strep throat typically resolves on its own within two to five days, treatment with antibiotics is recommended for adults whose rapid test or throat culture is positive for strep throat. Penicillin, or an antibiotic related to penicillin, is the treatment of choice for strep throat. It is usually given in pill or liquid form two to four times per day for 10 days. A one time injection of penicillin is also available. People who are allergic to penicillin are given an alternate antibiotic. It is important to finish the entire course of treatment to completely eliminate the infection. If symptoms do not begin to improve or worsen by three days of antibiotic treatment, you should see your doctor or nurse again. Return to work/school If you have been diagnosed with strep throat, stay home from work or school until you have completed 24 hours of antibiotics. Within 24 hours of beginning antibiotic treatment, you will feel better and will be less contagious [1]. If you have a sore throat (not diagnosed as strep), you may participate in your usual activities as soon as you feel well. SORE THROAT PREVENTION Hand washing is an essential and highly effective way to prevent the spread of infection. Wet your hands with water and plain soap, and rub them together for 15 to 30 seconds. Pay special attention to the fingernails, between the fingers, and the wrists. Rinse your hands thoroughly, and dry them with a clean towel. Alcohol-based hand rubs are a good alternative for disinfecting hands if a sink is not available. Hand rubs should be spread over the entire surface of hands, fingers, and wrists until dry, and may be used several times. These rubs can be used repeatedly without skin irritation or loss of effectiveness. Hand rubs are available as a liquid or wipe in small, portable sizes that are easy to carry in a pocket or handbag. When a sink is available, visibly soiled hands should be washed with soap and water. Wash your hands after coughing, blowing the nose, or sneezing. While it is not always possible to avoid being near a person who is sick, avoiding touching your eyes, nose, or mouth to prevent the spread of infection. In addition, tissues should be used to cover the mouth when sneezing or coughing. These used tissues should be disposed of promptly. Sneezing/coughing into your sleeve (at the inner elbow) is another way to contain sprays of saliva and secretions and will not contaminate your handRESPIRATORY INFECTION GENERAL INFORMATION: An upper respiratory tract infection, or cold, is a viral infection of the airway passages. It can be caused by any one of almost 200 different viruses. Common symptoms include a runny or stuffy nose, sneezing, watery eyes, sore throat, cough, and slight fever. Colds are contagious, especially during the first 3 or 4 days and cannot be cured by antibiotics. They are spread by coughs, sneezes, and direct contact, especially [id number]. A respiratory tract infection usually clears up in a few days, but some people may be sick for a week or two. INSTRUCTIONS: 1. Be careful not to blow your nose too hard because this may cause a nosebleed. 2. Use a cool-mist humidifier (vaporizer) to increase air moisture. This will make it easier for you to breathe. Do not use hot steam. 3. Rest as much as possible and get plenty of sleep. 4. Wash your hands often, especially after you blow your nose. Cover your mouth and nose with a tissue when you sneeze or cough. 5. Drink plenty of clear fluids (8 glasses a day) such as water, fruit juice, tea, clear soups, and carbonated beverages. CONTACT YOUR DOCTOR IF : 1. Your fever lasts more than 3 days. 2. You have a sore throat that gets worse or you see white or yellow spots in your throat. 3. Your cough gets worse or lasts more than 10 days. 4. You develop a rash anywhere on your skin. 5. You have an earache or a headache. 6. You have thick greenish or yellowish discharge from your nose. RETURN IMMEDIATELY IF: 1. You cough up thick yellow, green, gonzalez, or bloody sputum. 2. You have difficulty breathing, pain in your chest, or your skin or nails look gonzalez or blue. 3. You have shaking chills or a temperature over 102 F (39 C). documented in this encounter [facility] 06-06-2021 History of Presen t illness Narrative This note was created using [employer]. Subjective Smitha Hayes is a 31 year old female. 31 year old female with no significant PMH presents with complaints of sore throat. Acute onset 2 weeks ago States that at that time she took a home COVID test that was positive (citing her sx with COVID were headache, fever, sore throat) Presents today stating that the sore throat is not resolving feels like eating sandpaper +enlarged lymph nodes +headache +congestion and cough remain, otherwise States that her other symptoms of COVID have improved or resolved. Denies dyspnea. Denies abdominal pain. Denies N/V/D. The history is provided by the patient. No sign language translator was used. Sore Throat This is a new problem. The current episode started 1 to 4 weeks ago. The problem has been unchanged. Neither side of throat is experiencing more pain than the other. There has been no fever. The pain is at a severity of 5/10. The pain is moderate. Associated symptoms include coughing, headaches and swollen glands. Pertinent negatives include no abdominal pain, congestion, diarrhea, drooling, ear discharge, ear pain, hoarse voice, plugged ear sensation, neck pain, shortness of breath, stridor, trouble swallowing or vomiting. She has had no exposure to strep or mono. She has tried nothing for the symptoms. The treatment provided no relief. PAST MEDICAL HISTORY Diagnosis Date Anemia Anxiety 05/26/2019 Depression 2003 FRACTURE 01/2012 SACRUM, TAILBONE FX Insomnia due to other mental disorder 05/26/2019 Irregular menstrual cycle 08/02/2014 Other abnormal heart sounds Murmur Placental abruption depression 10/25/2009 hemorrhage PAST SURGICAL HISTORY Procedure Laterality Date LAPAROSCOPY REPAIR INCISIONAL HERNIA REDUCIBLE 04/15/14 1cm defect - ventralex ST small mesh LAPS SURG CHOLECYSTECTOMY W/CHOLANGIOGRAPHY 12/27/10 Normal IOC S TUBAL LIGATION 03/2014 bilateral salpingectomy VAGINAL HYSTERECTOMY UTERUS 250 GM/< 01/19/2016 [facility] ALLERGIES Latex and Penicillins MEDICATIONS predniSONE (DELTASONE) 10 mg tablet Take 4 tabs daily for 3 days, then 2 tabs daily for 3 days, then 1 tab daily for 3 days with food. FAMILY HISTORY Problem Relation Age of Onset Diabetes Mother Cancer Mother UTERINE CANCER Hypertension Father Heart Father 4 MD's Melanoma Father metastatic No Known Problems Sister No Known Problems Brother No Known Problems Brother Heart disease Brother at Hypertension Maternal Grandfather Heart Paternal Grandfather Social History Tobacco Use Smoking status: Never Smoker Smokeless tobacco: Never Used Vaping Use Vaping Use: Never used Substance Use Topics Alcohol use: Yes Comment: rare occasions. Drug use: No Review of Systems Constitutional: Negative for activity change, appetite change, chills and diaphoresis. HENT: Positive for sore throat. Negative for congestion, drooling, ear discharge, ear pain, hoarse voice, rhinorrhea, sinus pressure, sinus pain and trouble swallowing. Eyes: Negative for pain, discharge and itching. Respiratory: Positive for cough. Negative for shortness of breath and stridor. Cardiovascular: Negative for chest pain, palpitations and leg swelling. Gastrointestinal: Negative for abdominal pain, diarrhea, nausea, rectal pain and vomiting. Musculoskeletal: Negative for arthralgias, back pain and neck pain. Skin: Negative for color change, pallor and wound. Allergic/Immunologic: Negative for environmental allergies, food allergies and immunocompromised state. Neurological: Positive for headaches. Negative for dizziness and facial asymmetry. Hematological: Negative for adenopathy. Does not bruise/bleed easily. Psychiatric/Behavioral: Negative for agitation and behavioral problems. Objective BP 124/80 Pulse 64 Temp 37 C (98.6 F) Resp 20 Wt 90.7 kg (200 lb) LMP 12/29/2015 (Exact Date) SpO2 100% BMI 30.41 kg/m Physical Exam Vitals and nursing note reviewed. Constitutional: General: She is not in acute distress. Appearance: Normal appearance. She is normal weight. She is not ill-appearing, toxic-appearing or diaphoretic. HENT: Head: Normocephalic and atraumatic. Right Ear: Ear canal and external ear normal. Left Ear: Ear canal and external ear normal. Nose: Congestion present. No rhinorrhea. Mouth/Throat: Mouth: Mucous membranes are moist. Pharynx: Posterior oropharyngeal erythema (posterior erythema. Uvula midline. Handling secretions. ) present. No oropharyngeal exudate. Eyes: General: Right eye: No discharge. Left eye: No discharge. Extraocular Movements: Extraocular movements intact. Conjunctiva/sclera: Conjunctivae normal. Pupils: Pupils are equal, round, and reactive to light. Cardiovascular: Rate and Rhythm: Normal rate and regular rhythm. Pulses: Normal pulses. Heart sounds: Normal heart sounds. No murmur heard. No friction rub. Pulmonary: Effort: Pulmonary effort is normal. No respiratory distress. Breath sounds: Normal breath sounds. No stridor. No wheezing, rhonchi or rales. Chest: Chest wall: No tenderness. Abdominal: General: Abdomen is flat. There is no distension. Palpations: Abdomen is soft. There is no mass. Tenderness: There is no abdominal tenderness. There is no right CVA tenderness, left CVA tenderness, guarding or rebound. Hernia: No hernia is present. Musculoskeletal: General: No swelling, tenderness, deformity or signs of injury. Normal range of motion. Cervical back: Normal range of motion and neck supple. No rigidity. Right lower leg: No edema. Left lower leg: No edema. Lymphadenopathy: Cervical: Cervical adenopathy present. Skin: General: Skin is warm and dry. Capillary Refill: Capillary refill takes less than 2 seconds. Coloration: Skin is not jaundiced or pale. Findings: No bruising, erythema, lesion or rash. Neurological: General: No focal deficit present. Mental Status: She is alert and oriented to person, place, and time. Cranial Nerves: No cranial nerve deficit. Sensory: No sensory deficit. Motor: No weakness. Coordination: Coordination normal. Gait: Gait normal. Psychiatric: Mood and Affect: Mood normal. Behavior: Behavior normal. Thought Content: Thought content normal. Judgment: Judgment normal. Assessment and Plan ASSESSMENT/PLAN: 1. Pharyngitis, unspecified etiology - ICD9: 462, ICD10: J02.9 (primary diagnosis) - suspect viral - Alere Strep Test NEGATIVE, no culture pending - Discussed supportive care treatment with fluids, rest and analgesia. - The patient may also use OTC cough and cold meds as needed, warm salt water gargles, throat lozenges and/or OTC throat spray as needed, nasal saline gtts and suction prn and RX Prednisone . - Contagious dz precautions discussed- including considered contagious until on antibiotics for 24 hours - The patient should follow up in 3-5 days if symptoms persist or worsen - Call back if drooling, increased temperature, symptoms of dehydration and/or still sick in one week - STREP A MOLECULAR (POC) 2. URI, acute - ICD9: 465.9, ICD10: J06.9 - Discussed viral etiology and rationale for treatment. - Symptomatic treatment with prn analgesia - Supportive care with fluids and rest Lu Ramirez APRN.DENTAL CLAIMS PROCESSOR documented in this encounter [facility] 05-19-2021 Miscellaneous Notes Patient last seen in the office on 01/26/21 and given Diflucan and Clobetasol. Larisa Sequeira RN documented in this encounter [facility] documented as of this encounter (statuses as of 05/19/2021) [facility] History of Past illness Narrative* Problem Noted Date Resolved Date Irregular menstrual cycle 08/02/20142019 Dyspareunia 08/02/2014 12/13/2015 Ventral hernia 12/15/2013 08/02/2014 Sterilization consult 12/08/2013 08/02/2014 Overview: December 08, 2013 Title 19 signed. Counseled on r/b/a to this. Partner had vasectomy 12/2012. Understands it is permanent, irreversible, risk of regret and failure. Counseled on option of salpingectomy. Cherie Kovacs MD Umbilical hernia 12/01/2013 08/02/2014 Overview: December 01, 2013 hernia vs diastasis,this seems more superior to umbilicus and like true hernia. Reducible today. D/w her when to seek emergent care for symptoms/signs of incarceration. Otherwise eval. w/ gen. surgery after . Cherie Kovacs MD Short interval between pregn ancies complicating , antepartum 08/06/2013 09/21/2013 Overview: 08/06/2013Candace delivered her previous child October 30, 2012. The father of the baby is the father of all her children. This is a surprise . Patient states her fianc had a vasectomy in December 2012. He didn't go back for the followup visit. TKRN Prior with demise 08/06/2013 03/18/2014 Overview: 09/30/13: IUFD: 3rd trim US. NSTs at 32 wks. Consider del 37-38 weeks. MH 08/06/2013 She is 5 para 3 with a history of a delivery on November 10, 2011 which was an IUFD at 38 weeks 4 days due to an abruption. TKRN History of hemorrhage 08/06/2013 03/18/2014 Overview: 08/06/2013 Patient has a history of hemorrhage with 2 deliveries. TKRN H/O shoulder dystocia in prior , yoav garcia 08/06/2013 03/18/2014 Overview: 08/06/2013 Patient has a history of mild shoulder dystocia with her delivery in 2011. TKRN Family history of defects 08/06/2013 03/18/2014 Overview: 08/06/2013 Pt states her father was born with a congenital heart defect but she is not sure of the details. Pt's brother at age 9 days from hypoplastic heart. Pt's nephew born with a heart valve abnormality and a hole in his heart. Surgical correction was done at age 6 days old. Pt's Maternal grandmother, maternal aunt and two 1st cousins born with cleft hand and one of the bones in their forearm missing. TKRN Patient requested diagnostic testing 08/06/2013 09/21/2013 Overview: 08/06/2013 Patient desires early screening in with sequential testing. TKRN Sterilization consult 09/11/2012 08/06/2013 Overview: September 11, 2012 title 19 signed. COunselled permanent, irreversible, risk of regret, ectopic and failure. Cherie Kovacs MD Placenta previa 06/27/2012 12/16/2012 Overview: 06/27/12 - repeat u/s ordered for 6wks - KK July 30, 2012 RR- no previa, low lying placenta Cherie Kovacs MD Adjustment disorder with mixed anxiety and depre ssed mood 05/28/2012 12/16/2012 Supervision of other high-risk (V23.89) 04/18/2012 12/16/2012 Overview: RR- PNRA done. V23.89 XY Prior with placenta abruption, antepar wilton 04/14/2012 12/16/2012 Overview: 04/14/2012Patient delivered her last child November 10, 2011 which was an IUFD at 38 weeks 4 days due to an abruption. She states she is very nervous about this . Discussed grieving process. Patient given information about the healing hearts support group at [facility]. Patient believes she has a lot of support from her mother. The father of the baby is not wanting to get to attached to this at this point. Patient had an ultrasound done by Dr. Kovacs on March 31, 2012 that revealed an intrauterine at 6 weeks 4 days. See linked visit in epic. History of hemorrhage, currently preg nant 04/14/2012 12/16/2012 Overview: 04/14/2012 Patient has a history of hemorrhage with her last 2 deliveries. History of shoulder dystocia in prior , currently 04/14/2012 12/16/2012 Overview: 04/14/2012Patient has a history of mild shoulder dystocia with her last delivery. Heart murmur 04/14/2012 09/21/2013 Overview: 04/14/2012 Patient has a history of a heart murmur. She was evaluated by Dr. Jesus Gar and he could not identify any structural cardiac abnormality. Pt states she was told he only found a heart murmur. Pt denies any chest discomfort, shortness of breath. palpitations or c/o her heart racing or skipping beats. She states she does not take antibiotics prior to dental procedures. History of depression 04/14/2012 08/06/2013 Overview: 06/27/12 - pt is crying less but still currie on 5mg celexa, will increase to 10mg, pt declines counseling - KK 04/14/2012 Pt has a history of depression diagnosed at age 13 and . She has been off medication since November 2009. She believes she is doing well off medications. Discussed increased risks of depression during and and importance of reporting the development or worsening of symptoms should they occur. Pt denies ever having any suicidal thoughts or tendencies or thoughts of hurting others. Patient requested diagnostic testing 04/14/2012 12/16/2012 Overview: 04/14/2012Patient desires early screening in with sequential testing. 05/13/2012negative Sequential screen first trimester. The first part of the Sequential Screen reports that her risk for Down syndrome decreased from her age-related risk of 1:800 to 1:10,000 and her Trisomy 18 risk decreased from her age-related risk of 1:2,800 to 1:10,000. Based on these results Dr. Torres's recommendation is for patient to follow-up with Sequential second trimester screening (06/02-06/16) and level II anatomy scan after 18wks. 06/23/2012negative Sequential screen second trimester. The second part of the Sequential Screen reports that her risk for Down syndrome decreased from her age-related risk of 1:1,000 to 1:10,000, her Trisomy 18 risk decreased from her age-related risk of 1:4,200 to 1:10,000 and the ONTD risk is 1:4,800. Based on these results Dr. Torres's recommendation is for patient to follow-up with a level II anatomy ultrasound, which was completed 06/13/12. The follow up recommendation from anatomy ultrasound was for a repeat ultrasound in 6-8wks for growth and placenta location. Immunization due 04/14/2012 12/16/2012 Overview: 04/14/2012 tetanus vaccine is not up-to-date Family history of congenital anomalies 2 12/16/2012 Overview: Pt states her father was born with a congenital heart defect but she is not sure of the details. Pt's brother at age 9 days from hypoplastic heart. Pt's nephew born with a heart valve abnormality and a hole in his heart. Surgical correction was done at age 6 days old. Pt's Maternal grandmother, maternal aunt and two 1st cousins born with cleft hand and one of the bones in their forearm missing. Unspecified high-risk 04/12/2011 04/18/2012 Short interval between pregn ancies complicating , antepartum 04/12/2011 12/16/2012 Biliary colic 12/09/2010 04/12/2011 Decreased movements, a ffecting management of mother, antepartum 10/12/2010 12/13/2010 Supervision of other high-risk (V23.89) 06/09/2010 12/13/2010 Transient hypertension of , antepartum 09/19/2009 11/23/2009 Supervision of other high-risk (V23.89) 01/27/2009 11/23/2009 documented as of this encounter (statuses as of 06/06/2021) [facility] History of Past illness Narrative* Problem Noted Date Resolved Date Irregular menstrual cycle 08/02/20142019 Dyspareunia 08/02/2014 12/13/2015 Ventral hernia 12/15/2013 08/02/2014 Sterilization consult 12/08/2013 08/02/2014 Overview: December 08, 2013 Title 19 signed. Counseled on r/b/a to this. Partner had vasectomy 12/2012. Understands it is permanent, irreversible, risk of regret and failure. Counseled on option of salpingectomy. Cherie Kovacs MD Umbilical hernia 12/01/2013 08/02/2014 Overview: December 01, 2013 hernia vs diastasis,this seems more superior to umbilicus and like true hernia. Reducible today. D/w her when to seek emergent care for symptoms/signs of incarceration. Otherwise eval. w/ gen. surgery after . Cherie Kovacs MD Short interval between pregn ancies complicating , antepartum 08/06/2013 09/21/2013 Overview: 08/06/2013Candace delivered her previous child October 30, 2012. The father of the baby is the father of all her children. This is a surprise . Patient states her fianc had a vasectomy in December 2012. He didn't go back for the followup visit. TKRN Prior with demise 08/06/2013 03/18/2014 Overview: 09/30/13: IUFD: 3rd trim US. NSTs at 32 wks. Consider del 37-38 weeks. MH 08/06/2013 She is 5 para 3 with a history of a delivery on November 10, 2011 which was an IUFD at 38 weeks 4 days due to an abruption. TKRN History of hemorrhage 08/06/2013 03/18/2014 Overview: 08/06/2013 Patient has a history of hemorrhage with 2 deliveries. TKRN H/O shoulder dystocia in prior , yoav tltalat 08/06/2013 03/18/2014 Overview: 08/06/2013 Patient has a history of mild shoulder dystocia with her delivery in 2011. TKRN Family history of defects 08/06/2013 03/18/2014 Overview: 08/06/2013 Pt states her father was born with a congenital heart defect but she is not sure of the details. Pt's brother at age 9 days from hypoplastic heart. Pt's nephew born with a heart valve abnormality and a hole in his heart. Surgical correction was done at age 6 days old. Pt's Maternal grandmother, maternal aunt and two 1st cousins born with cleft hand and one of the bones in their forearm missing. TKRN Patient requested diagnostic testing 08/06/2013 09/21/2013 Overview: 08/06/2013 Patient desires early screening in with sequential testing. TKRN Sterilization consult 09/11/2012 08/06/2013 Overview: September 11, 2012 title 19 signed. COunselled permanent, irreversible, risk of regret, ectopic and failure. Cherie Kovacs MD Placenta previa 06/27/2012 12/16/2012 Overview: 06/27/12 - repeat u/s ordered for 6wks - KK July 30, 2012 RR- no previa, low lying placenta Cherie Kovacs MD Adjustment disorder with mixed anxiety and depre ssed mood 05/28/2012 12/16/2012 Supervision of other high-risk (V23.89) 04/18/2012 12/16/2012 Overview: RR- PNRA done. V23.89 XY Prior with placenta abruption, antepar w[place] 04/14/2012 12/16/2012 Overview: 04/14/2012Patient delivered her last child November 10, 2011 which was an IUFD at 38 weeks 4 days due to an abruption. She states she is very nervous about this . Discussed grieving process. Patient given information about the healing hearts support group at [facility]. Patient believes she has a lot of support from her mother. The father of the baby is not wanting to get to attached to this at this point. Patient had an ultrasound done by Dr. Kovacs on March 31, 2012 that revealed an intrauterine at 6 weeks 4 days. See linked visit in epic. History of hemorrhage, currently preg nant 04/14/2012 12/16/2012 Overview: 04/14/2012 Patient has a history of hemorrhage with her last 2 deliveries. History of shoulder dystocia in prior , currently 04/14/2012 12/16/2012 Overview: 04/14/2012Patient has a history of mild shoulder dystocia with her last delivery. Heart murmur 04/14/2012 09/21/2013 Overview: 04/14/2012 Patient has a history of a heart murmur. She was evaluated by Dr. Jesus Gar and he could not identify any structural cardiac abnormality. Pt states she was told he only found a heart murmur. Pt denies any chest discomfort, shortness of breath. palpitations or c/o her heart racing or skipping beats. She states she does not take antibiotics prior to dental procedures. History of depression 04/14/2012 08/06/2013 Overview: 06/27/12 - pt is crying less but still currie on 5mg celexa, will increase to 10mg, pt declines counseling - KK 04/14/2012 Pt has a history of depression diagnosed at age 13 and . She has been off medication since November 2009. She believes she is doing well off medications. Discussed increased risks of depression during and and importance of reporting the development or worsening of symptoms should they occur. Pt denies ever having any suicidal thoughts or tendencies or thoughts of hurting others. Patient requested diagnostic testing 04/14/2012 12/16/2012 Overview: 04/14/2012Patient desires early screening in with sequential testing. 05/13/2012negative Sequential screen first trimester. The first part of the Sequential Screen reports that her risk for Down syndrome decreased from her age-related risk of 1:800 to 1:10,000 and her Trisomy 18 risk decreased from her age-related risk of 1:2,800 to 1:10,000. Based on these results Dr. Torres's recommendation is for patient to follow-up with Sequential second trimester screening (06/02-06/16) and level II anatomy scan after 18wks. 06/23/2012negative Sequential screen second trimester. The second part of the Sequential Screen reports that her risk for Down syndrome decreased from her age-related risk of 1:1,000 to 1:10,000, her Trisomy 18 risk decreased from her age-related risk of 1:4,200 to 1:10,000 and the ONTD risk is 1:4,800. Based on these results Dr. Torres's recommendation is for patient to follow-up with a level II anatomy ultrasound, which was completed 06/13/12. The follow up recommendation from anatomy ultrasound was for a repeat ultrasound in 6-8wks for growth and placenta location. Immunization due 04/14/2012 12/16/2012 Overview: 04/14/2012 tetanus vaccine is not up-to-date Family history of congenital anomalies 2 12/16/2012 Overview: Pt states her father was born with a congenital heart defect but she is not sure of the details. Pt's brother at age 9 days from hypoplastic heart. Pt's nephew born with a heart valve abnormality and a hole in his heart. Surgical correction was done at age 6 days old. Pt's Maternal grandmother, maternal aunt and two 1st cousins born with cleft hand and one of the bones in their forearm missing. Unspecified high-risk 04/12/2011 04/18/2012 Short interval between pregn ancies complicating , antepartum 04/12/2011 12/16/2012 Biliary colic 12/09/2010 04/12/2011 Decreased movements, a ffecting management of mother, antepartum 10/12/2010 12/13/2010 Supervision of other high-risk (V23.89) 06/09/2010 12/13/2010 Transient hypertension of , antepartum 09/19/2009 11/23/2009 Supervision of other high-risk (V23.89) 01/27/2009 11/23/2009 documented as of this encounter (statuses as of 01/16/2022) [facility] History of Past illness Narrative* Problem Noted Date Resolved Date Irregular menstrual cycle 08/02/20142019 Dyspareunia 08/02/2014 12/13/2015 Ventral hernia 12/15/2013 08/02/2014 Sterilization consult 12/08/2013 08/02/2014 Overview: December 08, 2013 Title 19 signed. Counseled on r/b/a to this. Partner had vasectomy 12/2012. Understands it is permanent, irreversible, risk of regret and failure. Counseled on option of salpingectomy. Cherie Kovacs MD Umbilical hernia 12/01/2013 08/02/2014 Overview: December 01, 2013 hernia vs diastasis,this seems more superior to umbilicus and like true hernia. Reducible today. D/w her when to seek emergent care for symptoms/signs of incarceration. Otherwise eval. w/ gen. surgery after . Cherie Kovacs MD Short interval between pregn ancies complicating , antepartum 08/06/2013 09/21/2013 Overview: 08/06/2013Candace delivered her previous child October 30, 2012. The father of the baby is the father of all her children. This is a surprise . Patient states her fianc had a vasectomy in December 2012. He didn't go back for the followup visit. TKRN Prior with demise 08/06/2013 03/18/2014 Overview: 09/30/13: IUFD: 3rd trim US. NSTs at 32 wks. Consider del 37-38 weeks. MH 08/06/2013 She is 5 para 3 with a history of a delivery on November 10, 2011 which was an IUFD at 38 weeks 4 days due to an abruption. TKRN History of hemorrhage 08/06/2013 03/18/2014 Overview: 08/06/2013 Patient has a history of hemorrhage with 2 deliveries. TKRN H/O shoulder dystocia in prior , yoav tltalat 08/06/2013 03/18/2014 Overview: 08/06/2013 Patient has a history of mild shoulder dystocia with her delivery in 2011. TKRN Family history of defects 08/06/2013 03/18/2014 Overview: 08/06/2013 Pt states her father was born with a congenital heart defect but she is not sure of the details. Pt's brother at age 9 days from hypoplastic heart. Pt's nephew born with a heart valve abnormality and a hole in his heart. Surgical correction was done at age 6 days old. Pt's Maternal grandmother, maternal aunt and two 1st cousins born with cleft hand and one of the bones in their forearm missing. TKRN Patient requested diagnostic testing 08/06/2013 09/21/2013 Overview: 08/06/2013 Patient desires early screening in with sequential testing. TKRN Sterilization consult 09/11/2012 08/06/2013 Overview: September 11, 2012 title 19 signed. COunselled permanent, irreversible, risk of regret, ectopic and failure. Cherie Kovacs MD Placenta previa 06/27/2012 12/16/2012 Overview: 06/27/12 - repeat u/s ordered for 6wks - KK July 30, 2012 RR- no previa, low lying placenta Cherie Kovacs MD Adjustment disorder with mixed anxiety and depre ssed mood 05/28/2012 12/16/2012 Supervision of other high-risk (V23.89) 04/18/2012 12/16/2012 Overview: RR- PNRA done. V23.89 XY Prior with placenta abruption, antepar [place] 04/14/2012 12/16/2012 Overview: 04/14/2012Patient delivered her last child November 10, 2011 which was an IUFD at 38 weeks 4 days due to an abruption. She states she is very nervous about this . Discussed grieving process. Patient given information about the healing hearts support group at [facility]. Patient believes she has a lot of support from her mother. The father of the baby is not wanting to get to attached to this at this point. Patient had an ultrasound done by Dr. Kovacs on March 31, 2012 that revealed an intrauterine at 6 weeks 4 days. See linked visit in epic. History of hemorrhage, currently preg nant 04/14/2012 12/16/2012 Overview: 04/14/2012 Patient has a history of hemorrhage with her last 2 deliveries. History of shoulder dystocia in prior , currently 04/14/2012 12/16/2012 Overview: 04/14/2012Patient has a history of mild shoulder dystocia with her last delivery. Heart murmur 04/14/2012 09/21/2013 Overview: 04/14/2012 Patient has a history of a heart murmur. She was evaluated by Dr. Jesus Gar and he could not identify any structural cardiac abnormality. Pt states she was told he only found a heart murmur. Pt denies any chest discomfort, shortness of breath. palpitations or c/o her heart racing or skipping beats. She states she does not take antibiotics prior to dental procedures. History of depression 04/14/2012 08/06/2013 Overview: 06/27/12 - pt is crying less but still currie on 5mg celexa, will increase to 10mg, pt declines counseling - KK 04/14/2012 Pt has a history of depression diagnosed at age 13 and . She has been off medication since November 2009. She believes she is doing well off medications. Discussed increased risks of depression during and and importance of reporting the development or worsening of symptoms should they occur. Pt denies ever having any suicidal thoughts or tendencies or thoughts of hurting others. Patient requested diagnostic testing 04/14/2012 12/16/2012 Overview: 04/14/2012Patient desires early screening in with sequential testing. 05/13/2012negative Sequential screen first trimester. The first part of the Sequential Screen reports that her risk for Down syndrome decreased from her age-related risk of 1:800 to 1:10,000 and her Trisomy 18 risk decreased from her age-related risk of 1:2,800 to 1:10,000. Based on these results Dr. Torres's recommendation is for patient to follow-up with Sequential second trimester screening (06/02-06/16) and level II anatomy scan after 18wks. 06/23/2012negative Sequential screen second trimester. The second part of the Sequential Screen reports that her risk for Down syndrome decreased from her age-related risk of 1:1,000 to 1:10,000, her Trisomy 18 risk decreased from her age-related risk of 1:4,200 to 1:10,000 and the ONTD risk is 1:4,800. Based on these results Dr. Torres's recommendation is for patient to follow-up with a level II anatomy ultrasound, which was completed 06/13/12. The follow up recommendation from anatomy ultrasound was for a repeat ultrasound in 6-8wks for growth and placenta location. Immunization due 04/14/2012 12/16/2012 Overview: 04/14/2012 tetanus vaccine is not up-to-date Family history of congenital anomalies 2 12/16/2012 Overview: Pt states her father was born with a congenital heart defect but she is not sure of the details. Pt's brother at age 9 days from hypoplastic heart. Pt's nephew born with a heart valve abnormality and a hole in his heart. Surgical correction was done at age 6 days old. Pt's Maternal grandmother, maternal aunt and two 1st cousins born with cleft hand and one of the bones in their forearm missing. Unspecified high-risk 04/12/2011 04/18/2012 Short interval between pregn ancies complicating , antepartum 04/12/2011 12/16/2012 Biliary colic 12/09/2010 04/12/2011 Decreased movements, a ffecting management of mother, antepartum 10/12/2010 12/13/2010 Supervision of other high-risk (V23.89) 06/09/2010 12/13/2010 Transient hypertension of , antepartum 09/19/2009 11/23/2009 Supervision of other high-risk (V23.89) 01/27/2009 11/23/2009 documented as of this encounter (statuses as of 03/27/2022) [facility]-2015 History of Past illness Narrative* Problem Noted Date Resolved Date Irregular menstrual cycle 08/02/20142019 Dyspareunia 08/02/2014 12/13/2015 Ventral hernia 12/15/2013 08/02/2014 Sterilization consult 12/08/2013 08/02/2014 Overview: December 08, 2013 Title 19 signed. Counseled on r/b/a to this. Partner had vasectomy 12/2012. Understands it is permanent, irreversible, risk of regret and failure. Counseled on option of salpingectomy. Cherie Kovacs MD Umbilical hernia 12/01/2013 08/02/2014 Overview: December 01, 2013 hernia vs diastasis,this seems more superior to umbilicus and like true hernia. Reducible today. D/w her when to seek emergent care for symptoms/signs of incarceration. Otherwise eval. w/ gen. surgery after . Cherie Kovacs MD Short interval between pregn ancies complicating , antepartum 08/06/2013 09/21/2013 Overview: 08/06/2013Genee delivered her previous child October 30, 2012. The father of the baby is the father of all her children. This is a surprise . Patient states her fianc had a vasectomy in December 2012. He didn't go back for the followup visit. TKRN Prior with demise 08/06/2013 03/18/2014 Overview: 09/30/13: IUFD: 3rd trim US. NSTs at 32 wks. Consider del 37-38 weeks. MH 08/06/2013 She is 5 para 3 with a history of a delivery on November 10, 2011 which was an IUFD at 38 weeks 4 days due to an abruption. TKRN History of hemorrhage 08/06/2013 03/18/2014 Overview: 08/06/2013 Patient has a history of hemorrhage with 2 deliveries. TKRN H/O shoulder dystocia in prior , yoav tly 08/06/2013 03/18/2014 Overview: 08/06/2013 Patient has a history of mild shoulder dystocia with her delivery in 2011. TKRN Family history of defects 08/06/2013 03/18/2014 Overview: 08/06/2013 Pt states her father was born with a congenital heart defect but she is not sure of the details. Pt's brother at age 9 days from hypoplastic heart. Pt's nephew born with a heart valve abnormality and a hole in his heart. Surgical correction was done at age 6 days old. Pt's Maternal grandmother, maternal aunt and two 1st cousins born with cleft hand and one of the bones in their forearm missing. TKRN Patient requested diagnostic testing 08/06/2013 09/21/2013 Overview: 08/06/2013 Patient desires early screening in with sequential testing. TKRN Sterilization consult 09/11/2012 08/06/2013 Overview: September 11, 2012 title 19 signed. COunselled permanent, irreversible, risk of regret, ectopic and failure. Cherie Kovacs MD Placenta previa 06/27/2012 12/16/2012 Overview: 06/27/12 - repeat u/s ordered for 6wks - KK July 30, 2012 RR- no previa, low lying placenta Cherie Kovacs MD Adjustment disorder with mixed anxiety and depre ssed mood 05/28/2012 12/16/2012 Supervision of other high-risk (V23.89) 04/18/2012 12/16/2012 Overview: RR- PNRA done. V23.89 XY Prior with placenta abruption, antepar [place] 04/14/2012 12/16/2012 Overview: 04/14/2012Patient delivered her last child November 10, 2011 which was an IUFD at 38 weeks 4 days due to an abruption. She states she is very nervous about this . Discussed grieving process. Patient given information about the healing hearts support group at [facility]. Patient believes she has a lot of support from her mother. The father of the baby is not wanting to get to attached to this at this point. Patient had an ultrasound done by Dr. Kovacs on March 31, 2012 that revealed an intrauterine at 6 weeks 4 days. See linked visit in epic. History of hemorrhage, currently preg nant 04/14/2012 12/16/2012 Overview: 04/14/2012 Patient has a history of hemorrhage with her last 2 deliveries. History of shoulder dystocia in prior , currently 04/14/2012 12/16/2012 Overview: 04/14/2012Patient has a history of mild shoulder dystocia with her last delivery. Heart murmur 04/14/2012 09/21/2013 Overview: 04/14/2012 Patient has a history of a heart murmur. She was evaluated by Dr. Jesus Gar and he could not identify any structural cardiac abnormality. Pt states she was told he only found a heart murmur. Pt denies any chest discomfort, shortness of breath. palpitations or c/o her heart racing or skipping beats. She states she does not take antibiotics prior to dental procedures. History of depression 04/14/2012 08/06/2013 Overview: 06/27/12 - pt is crying less but still currie on 5mg celexa, will increase to 10mg, pt declines counseling - KK 04/14/2012 Pt has a history of depression diagnosed at age 13 and . She has been off medication since November 2009. She believes she is doing well off medications. Discussed increased risks of depression during and and importance of reporting the development or worsening of symptoms should they occur. Pt denies ever having any suicidal thoughts or tendencies or thoughts of hurting others. Patient requested diagnostic testing 04/14/2012 12/16/2012 Overview: 04/14/2012Patient desires early screening in with sequential testing. 05/13/2012negative Sequential screen first trimester. The first part of the Sequential Screen reports that her risk for Down syndrome decreased from her age-related risk of 1:800 to 1:10,000 and her Trisomy 18 risk decreased from her age-related risk of 1:2,800 to 1:10,000. Based on these results Dr. Torres's recommendation is for patient to follow-up with Sequential second trimester screening (06/02-06/16) and level II anatomy scan after 18wks. 06/23/2012negative Sequential screen second trimester. The second part of the Sequential Screen reports that her risk for Down syndrome decreased from her age-related risk of 1:1,000 to 1:10,000, her Trisomy 18 risk decreased from her age-related risk of 1:4,200 to 1:10,000 and the ONTD risk is 1:4,800. Based on these results Dr. Torres's recommendation is for patient to follow-up with a level II anatomy ultrasound, which was completed 06/13/12. The follow up recommendation from anatomy ultrasound was for a repeat ultrasound in 6-8wks for growth and placenta location. Immunization due 04/14/2012 12/16/2012 Overview: 04/14/2012 tetanus vaccine is not up-to-date Family history of congenital anomalies 2 12/16/2012 Overview: Pt states her father was born with a congenital heart defect but she is not sure of the details. Pt's brother at age 9 days from hypoplastic heart. Pt's nephew born with a heart valve abnormality and a hole in his heart. Surgical correction was done at age 6 days old. Pt's Maternal grandmother, maternal aunt and two 1st cousins born with cleft hand and one of the bones in their forearm missing. Unspecified high-risk 04/12/2011 04/18/2012 Short interval between pregn ancies complicating , antepartum 04/12/2011 12/16/2012 Biliary colic 12/09/2010 04/12/2011 Decreased movements, a ffecting management of mother, antepartum 10/12/2010 12/13/2010 Supervision of other high-risk (V23.89) 06/09/2010 12/13/2010 Transient hypertension of , antepartum 09/19/2009 11/23/2009 Supervision of other high-risk (V23.89) 01/27/2009 11/23/2009 documented as of this encounter (statuses as of 05/16/2022) [facility] History of Past illness Narrative* Problem Noted Date Resolved Date Irregular menstrual cycle 08/02/20142019 Dyspareunia 08/02/2014 12/13/2015 Ventral hernia 12/15/2013 08/02/2014 Sterilization consult 12/08/2013 08/02/2014 Overview: December 08, 2013 Title 19 signed. Counseled on r/b/a to this. Partner had vasectomy 12/2012. Understands it is permanent, irreversible, risk of regret and failure. Counseled on option of salpingectomy. Cherie Kovacs MD Umbilical hernia 12/01/2013 08/02/2014 Overview: December 01, 2013 hernia vs diastasis,this seems more superior to umbilicus and like true hernia. Reducible today. D/w her when to seek emergent care for symptoms/signs of incarceration. Otherwise eval. w/ gen. surgery after . Cherie Kovacs MD Short interval between pregn ancies complicating , antepartum 08/06/2013 09/21/2013 Overview: 08/06/2013She delivered her previous child October 30, 2012. The father of the baby is the father of all her children. This is a surprise . Patient states her fianc had a vasectomy in December 2012. He didn't go back for the followup visit. TKRN Prior with demise 08/06/2013 03/18/2014 Overview: 09/30/13: IUFD: 3rd trim US. NSTs at 32 wks. Consider del 37-38 weeks. MH 08/06/2013 She is 5 para 3 with a history of a delivery on November 10, 2011 which was an IUFD at 38 weeks 4 days due to an abruption. TKRN History of hemorrhage 08/06/2013 03/18/2014 Overview: 08/06/2013 Patient has a history of hemorrhage with 2 deliveries. TKRN H/O shoulder dystocia in prior , yoav tltalat 08/06/2013 03/18/2014 Overview: 08/06/2013 Patient has a history of mild shoulder dystocia with her delivery in 2011. TKRN Family history of defects 08/06/2013 03/18/2014 Overview: 08/06/2013 Pt states her father was born with a congenital heart defect but she is not sure of the details. Pt's brother at age 9 days from hypoplastic heart. Pt's nephew born with a heart valve abnormality and a hole in his heart. Surgical correction was done at age 6 days old. Pt's Maternal grandmother, maternal aunt and two 1st cousins born with cleft hand and one of the bones in their forearm missing. TKRN Patient requested diagnostic testing 08/06/2013 09/21/2013 Overview: 08/06/2013 Patient desires early screening in with sequential testing. [facility] 09/11/2012 08/06/2013 Overview: September 11, 2012 title 19 signed. COunselled permanent, irreversible, risk of regret, ectopic and failure. Cherie Kovacs MD Placenta previa 06/27/2012 12/16/2012 Overview: 06/27/12 - repeat u/s ordered for 6wks - KK July 30, 2012 RR- no previa, low lying placenta Cherie Kovacs MD Adjustment disorder with mixed anxiety and depre ssed mood 05/28/2012 12/16/2012 Supervision of other high-risk (V23.89) 04/18/2012 12/16/2012 Overview: RR- PNRA done. V23.89 XY Prior with placenta abruption, antepar [place] 04/14/2012 12/16/2012 Overview: 04/14/2012Patient delivered her last child November 10, 2011 which was an IUFD at 38 weeks 4 days due to an abruption. She states she is very nervous about this . Discussed grieving process. Patient given information about the healing hearts support group at [facility]. Patient believes she has a lot of support from her mother. The father of the baby is not wanting to get to attached to this at this point. Patient had an ultrasound done by Dr. Kovacs on March 31, 2012 that revealed an intrauterine at 6 weeks 4 days. See linked visit in epic. History of hemorrhage, currently preg nant 04/14/2012 12/16/2012 Overview: 04/14/2012 Patient has a history of hemorrhage with her last 2 deliveries. History of shoulder dystocia in prior , currently 04/14/2012 12/16/2012 Overview: 04/14/2012Patient has a history of mild shoulder dystocia with her last delivery. Heart murmur 04/14/2012 09/21/2013 Overview: 04/14/2012 Patient has a history of a heart murmur. She was evaluated by Dr. Jesus Gar and he could not identify any structural cardiac abnormality. Pt states she was told he only found a heart murmur. Pt denies any chest discomfort, shortness of breath. palpitations or c/o her heart racing or skipping beats. She states she does not take antibiotics prior to dental procedures. History of depression 04/14/2012 08/06/2013 Overview: 06/27/12 - pt is crying less but still currie on 5mg celexa, will increase to 10mg, pt declines counseling - KK 04/14/2012 Pt has a history of depression diagnosed at age 13 and . She has been off medication since November 2009. She believes she is doing well off medications. Discussed increased risks of depression during and and importance of reporting the development or worsening of symptoms should they occur. Pt denies ever having any suicidal thoughts or tendencies or thoughts of hurting others. Patient requested diagnostic testing 04/14/2012 12/16/2012 Overview: 04/14/2012Patient desires early screening in with sequential testing. 05/13/2012negative Sequential screen first trimester. The first part of the Sequential Screen reports that her risk for Down syndrome decreased from her age-related risk of 1:800 to 1:10,000 and her Trisomy 18 risk decreased from her age-related risk of 1:2,800 to 1:10,000. Based on these results Dr. Torres's recommendation is for patient to follow-up with Sequential second trimester screening (06/02-06/16) and level II anatomy scan after 18wks. 06/23/2012negative Sequential screen second trimester. The second part of the Sequential Screen reports that her risk for Down syndrome decreased from her age-related risk of 1:1,000 to 1:10,000, her Trisomy 18 risk decreased from her age-related risk of 1:4,200 to 1:10,000 and the ONTD risk is 1:4,800. Based on these results Dr. Torres's recommendation is for patient to follow-up with a level II anatomy ultrasound, which was completed 06/13/12. The follow up recommendation from anatomy ultrasound was for a repeat ultrasound in 6-8wks for growth and placenta location. Immunization due 04/14/2012 12/16/2012 Overview: 04/14/2012 tetanus vaccine is not up-to-date Family history of congenital anomalies 2 12/16/2012 Overview: Pt states her father was born with a congenital heart defect but she is not sure of the details. Pt's brother at age 9 days from hypoplastic heart. Pt's nephew born with a heart valve abnormality and a hole in his heart. Surgical correction was done at age 6 days old. Pt's Maternal grandmother, maternal aunt and two 1st cousins born with cleft hand and one of the bones in their forearm missing. Unspecified high-risk 04/12/2011 04/18/2012 Short interval between pregn ancies complicating , antepartum 04/12/2011 12/16/2012 Biliary colic 12/09/2010 04/12/2011 Decreased movements, a ffecting management of mother, antepartum 10/12/2010 12/13/2010 Supervision of other high-risk (V23.89) 06/09/2010 12/13/2010 Transient hypertension of , antepartum 09/19/2009 11/23/2009 Supervision of other high-risk (V23.89) 01/27/2009 11/23/2009 documented as of this encounter (statuses as of 05/18/2022) [place] [id number] History of Past illness Narrative* Problem Noted Date Resolved Date Irregular menstrual cycle 08/02/20142019 Dyspareunia 08/02/2014 12/13/2015 Ventral hernia 12/15/2013 08/02/2014 Sterilization consult 12/08/2013 08/02/2014 Overview: December 08, 2013 Title 19 signed. Counseled on r/b/a to this. Partner had vasectomy 12/2012. Understands it is permanent, irreversible, risk of regret and failure. Counseled on option of salpingectomy. Cherie Kovacs MD Umbilical hernia 12/01/2013 08/02/2014 Overview: December 01, 2013 hernia vs diastasis,this seems more superior to umbilicus and like true hernia. Reducible today. D/w her when to seek emergent care for symptoms/signs of incarceration. Otherwise eval. w/ gen. surgery after . Cherie Kovacs MD Short interval between pregn ancies complicating , antepartum 08/06/2013 09/21/2013 Overview: 08/06/2013Genee delivered her previous child October 30, 2012. The father of the baby is the father of all her children. This is a surprise . Patient states her fianc had a vasectomy in December 2012. He didn't go back for the followup visit. TKRN Prior with demise 08/06/2013 03/18/2014 Overview: 09/30/13: IUFD: 3rd trim US. NSTs at 32 wks. Consider del 37-38 weeks. MH 08/06/2013 She is 5 para 3 with a history of a delivery on November 10, 2011 which was an IUFD at 38 weeks 4 days due to an abruption. TKRN History of hemorrhage 08/06/2013 03/18/2014 Overview: 08/06/2013 Patient has a history of hemorrhage with 2 deliveries. TKRN H/O shoulder dystocia in prior , yoav tly 08/06/2013 03/18/2014 Overview: 08/06/2013 Patient has a history of mild shoulder dystocia with her delivery in 2011. TKRN Family history of defects 08/06/2013 03/18/2014 Overview: 08/06/2013 Pt states her father was born with a congenital heart defect but she is not sure of the details. Pt's brother at age 9 days from hypoplastic heart. Pt's nephew born with a heart valve abnormality and a hole in his heart. Surgical correction was done at age 6 days old. Pt's Maternal grandmother, maternal aunt and two 1st cousins born with cleft hand and one of the bones in their forearm missing. TKRN Patient requested diagnostic testing 08/06/2013 09/21/2013 Overview: 08/06/2013 Patient desires early screening in with sequential testing. TKRN Sterilization consult 09/11/2012 08/06/2013 Overview: September 11, 2012 title 19 signed. COunselled permanent, irreversible, risk of regret, ectopic and failure. Cherie Kovacs MD Placenta previa 06/27/2012 12/16/2012 Overview: 06/27/12 - repeat u/s ordered for 6wks - KK July 30, 2012 RR- no previa, low lying placenta Cherie Kovacs MD Adjustment disorder with mixed anxiety and depre ssed mood 05/28/2012 12/16/2012 Supervision of other high-risk (V23.89) 04/18/2012 12/16/2012 Overview: RR- PNRA done. V23.89 XY Prior with placenta abruption, antepar [place] 04/14/2012 12/16/2012 Overview: 04/14/2012Patient delivered her last child November 10, 2011 which was an IUFD at 38 weeks 4 days due to an abruption. She states she is very nervous about this . Discussed grieving process. Patient given information about the healing hearts support group at [facility]. Patient believes she has a lot of support from her mother. The father of the baby is not wanting to get to attached to this at this point. Patient had an ultrasound done by Dr. Kovacs on March 31, 2012 that revealed an intrauterine at 6 weeks 4 days. See linked visit in epic. History of hemorrhage, currently preg nant 04/14/2012 12/16/2012 Overview: 04/14/2012 Patient has a history of hemorrhage with her last 2 deliveries. History of shoulder dystocia in prior , currently 04/14/2012 12/16/2012 Overview: 04/14/2012Patient has a history of mild shoulder dystocia with her last delivery. Heart murmur 04/14/2012 09/21/2013 Overview: 04/14/2012 Patient has a history of a heart murmur. She was evaluated by Dr. Jesus Gar and he could not identify any structural cardiac abnormality. Pt states she was told he only found a heart murmur. Pt denies any chest discomfort, shortness of breath. palpitations or c/o her heart racing or skipping beats. She states she does not take antibiotics prior to dental procedures. History of depression 04/14/2012 08/06/2013 Overview: 06/27/12 - pt is crying less but still currie on 5mg celexa, will increase to 10mg, pt declines counseling - KK 04/14/2012 Pt has a history of depression diagnosed at age 13 and . She has been off medication since November 2009. She believes she is doing well off medications. Discussed increased risks of depression during and and importance of reporting the development or worsening of symptoms should they occur. Pt denies ever having any suicidal thoughts or tendencies or thoughts of hurting others. Patient requested diagnostic testing 04/14/2012 12/16/2012 Overview: 04/14/2012Patient desires early screening in with sequential testing. 05/13/2012negative Sequential screen first trimester. The first part of the Sequential Screen reports that her risk for Down syndrome decreased from her age-related risk of 1:800 to 1:10,000 and her Trisomy 18 risk decreased from her age-related risk of 1:2,800 to 1:10,000. Based on these results Dr. Torres's recommendation is for patient to follow-up with Sequential second trimester screening (06/02-06/16) and level II anatomy scan after 18wks. 06/23/2012negative Sequential screen second trimester. The second part of the Sequential Screen reports that her risk for Down syndrome decreased from her age-related risk of 1:1,000 to 1:10,000, her Trisomy 18 risk decreased from her age-related risk of 1:4,200 to 1:10,000 and the ONTD risk is 1:4,800. Based on these results Dr. Torres's recommendation is for patient to follow-up with a level II anatomy ultrasound, which was completed 06/13/12. The follow up recommendation from anatomy ultrasound was for a repeat ultrasound in 6-8wks for growth and placenta location. Immunization due 04/14/2012 12/16/2012 Overview: 04/14/2012 tetanus vaccine is not up-to-date Family history of congenital anomalies 2 12/16/2012 Overview: Pt states her father was born with a congenital heart defect but she is not sure of the details. Pt's brother at age 9 days from hypoplastic heart. Pt's nephew born with a heart valve abnormality and a hole in his heart. Surgical correction was done at age 6 days old. Pt's Maternal grandmother, maternal aunt and two 1st cousins born with cleft hand and one of the bones in their forearm missing. Unspecified high-risk 04/12/2011 04/18/2012 Short interval between pregn ancies complicating , antepartum 04/12/2011 12/16/2012 Biliary colic 12/09/2010 04/12/2011 Decreased movements, a ffecting management of mother, antepartum 10/12/2010 12/13/2010 Supervision of other high-risk (V23.89) 06/09/2010 12/13/2010 Transient hypertension of , antepartum 09/19/2009 11/23/2009 Supervision of other high-risk (V23.89) 01/27/2009 11/23/2009 documented as of this encounter (statuses as of 05/31/2022) [facility]2015 History of Past illness Narrative* Problem Noted Date Resolved Date Irregular menstrual cycle 08/02/20142019 Dyspareunia 08/02/2014 12/13/2015 Ventral hernia 12/15/2013 08/02/2014 Sterilization consult 12/08/2013 08/02/2014 Overview: December 08, 2013 Title 19 signed. Counseled on r/b/a to this. Partner had vasectomy 12/2012. Understands it is permanent, irreversible, risk of regret and failure. Counseled on option of salpingectomy. Cherie Kovacs MD Umbilical hernia 12/01/2013 08/02/2014 Overview: December 01, 2013 hernia vs diastasis,this seems more superior to umbilicus and like true hernia. Reducible today. D/w her when to seek emergent care for symptoms/signs of incarceration. Otherwise eval. w/ gen. surgery after . Cherie Kovacs MD Short interval between pregn ancies complicating , antepartum 08/06/2013 09/21/2013 Overview: 08/06/2013Candace delivered her previous child October 30, 2012. The father of the baby is the father of all her children. This is a surprise . Patient states her fianc had a vasectomy in December 2012. He didn't go back for the followup visit. TKRN Prior with demise 08/06/2013 03/18/2014 Overview: 09/30/13: IUFD: 3rd trim US. NSTs at 32 wks. Consider del 37-38 weeks. MH 08/06/2013 She is 5 para 3 with a history of a delivery on November 10, 2011 which was an IUFD at 38 weeks 4 days due to an abruption. TKRN History of hemorrhage 08/06/2013 03/18/2014 Overview: 08/06/2013 Patient has a history of hemorrhage with 2 deliveries. TKRN H/O shoulder dystocia in prior , yoav tltalat 08/06/2013 03/18/2014 Overview: 08/06/2013 Patient has a history of mild shoulder dystocia with her delivery in 2011. TKRN Family history of defects 08/06/2013 03/18/2014 Overview: 08/06/2013 Pt states her father was born with a congenital heart defect but she is not sure of the details. Pt's brother at age 9 days from hypoplastic heart. Pt's nephew born with a heart valve abnormality and a hole in his heart. Surgical correction was done at age 6 days old. Pt's Maternal grandmother, maternal aunt and two 1st cousins born with cleft hand and one of the bones in their forearm missing. TKRN Patient requested diagnostic testing 08/06/2013 09/21/2013 Overview: 08/06/2013 Patient desires early screening in with sequential testing. TKRN Sterilization consult 09/11/2012 08/06/2013 Overview: September 11, 2012 title 19 signed. COunselled permanent, irreversible, risk of regret, ectopic and failure. Cherie Kovacs MD Placenta previa 06/27/2012 12/16/2012 Overview: 06/27/12 - repeat u/s ordered for 6wks - KK July 30, 2012 RR- no previa, low lying placenta Cherie Kovacs MD Adjustment disorder with mixed anxiety and depre ssed mood 05/28/2012 12/16/2012 Supervision of other high-risk (V23.89) 04/18/2012 12/16/2012 Overview: RR- PNRA done. V23.89 XY Prior with placenta abruption, antepar [place] 04/14/2012 12/16/2012 Overview: 04/14/2012Patient delivered her last child November 10, 2011 which was an IUFD at 38 weeks 4 days due to an abruption. She states she is very nervous about this . Discussed grieving process. Patient given information about the healing hearts support group at [facility]. Patient believes she has a lot of support from her mother. The father of the baby is not wanting to get to attached to this at this point. Patient had an ultrasound done by Dr. Kovacs on March 31, 2012 that revealed an intrauterine at 6 weeks 4 days. See linked visit in epic. History of hemorrhage, currently preg nant 04/14/2012 12/16/2012 Overview: 04/14/2012 Patient has a history of hemorrhage with her last 2 deliveries. History of shoulder dystocia in prior , currently 04/14/2012 12/16/2012 Overview: 04/14/2012Patient has a history of mild shoulder dystocia with her last delivery. Heart murmur 04/14/2012 09/21/2013 Overview: 04/14/2012 Patient has a history of a heart murmur. She was evaluated by Dr. Jesus Gar and he could not identify any structural cardiac abnormality. Pt states she was told he only found a heart murmur. Pt denies any chest discomfort, shortness of breath. palpitations or c/o her heart racing or skipping beats. She states she does not take antibiotics prior to dental procedures. History of depression 04/14/2012 08/06/2013 Overview: 06/27/12 - pt is crying less but still currie on 5mg celexa, will increase to 10mg, pt declines counseling - KK 04/14/2012 Pt has a history of depression diagnosed at age 13 and . She has been off medication since November 2009. She believes she is doing well off medications. Discussed increased risks of depression during and and importance of reporting the development or worsening of symptoms should they occur. Pt denies ever having any suicidal thoughts or tendencies or thoughts of hurting others. Patient requested diagnostic testing 04/14/2012 12/16/2012 Overview: 04/14/2012Patient desires early screening in with sequential testing. 05/13/2012negative Sequential screen first trimester. The first part of the Sequential Screen reports that her risk for Down syndrome decreased from her age-related risk of 1:800 to 1:10,000 and her Trisomy 18 risk decreased from her age-related risk of 1:2,800 to 1:10,000. Based on these results Dr. Torres's recommendation is for patient to follow-up with Sequential second trimester screening (06/02-06/16) and level II anatomy scan after 18wks. 06/23/2012negative Sequential screen second trimester. The second part of the Sequential Screen reports that her risk for Down syndrome decreased from her age-related risk of 1:1,000 to 1:10,000, her Trisomy 18 risk decreased from her age-related risk of 1:4,200 to 1:10,000 and the ONTD risk is 1:4,800. Based on these results Dr. Torres's recommendation is for patient to follow-up with a level II anatomy ultrasound, which was completed 06/13/12. The follow up recommendation from anatomy ultrasound was for a repeat ultrasound in 6-8wks for growth and placenta location. Immunization due 04/14/2012 12/16/2012 Overview: 04/14/2012 tetanus vaccine is not up-to-date Family history of congenital anomalies 2 12/16/2012 Overview: Pt states her father was born with a congenital heart defect but she is not sure of the details. Pt's brother at age 9 days from hypoplastic heart. Pt's nephew born with a heart valve abnormality and a hole in his heart. Surgical correction was done at age 6 days old. Pt's Maternal grandmother, maternal aunt and two 1st cousins born with cleft hand and one of the bones in their forearm missing. Unspecified high-risk 04/12/2011 04/18/2012 Short interval between pregn ancies complicating , antepartum 04/12/2011 12/16/2012 Biliary colic 12/09/2010 04/12/2011 Decreased movements, a ffecting management of mother, antepartum 10/12/2010 12/13/2010 Supervision of other high-risk (V23.89) 06/09/2010 12/13/2010 Transient hypertension of , antepartum 09/19/2009 11/23/2009 Supervision of other high-risk (V23.89) 01/27/2009 11/23/2009 documented as of this encounter (statuses as of 06/02/2022) [facility] History of Past illness Narrative* Problem Noted Date Resolved Date Irregular menstrual cycle 08/02/20142019 Dyspareunia 08/02/2014 12/13/2015 Ventral hernia 12/15/2013 08/02/2014 Sterilization consult 12/08/2013 08/02/2014 Overview: December 08, 2013 Title 19 signed. Counseled on r/b/a to this. Partner had vasectomy 12/2012. Understands it is permanent, irreversible, risk of regret and failure. Counseled on option of salpingectomy. Cherie Kovacs MD Umbilical hernia 12/01/2013 08/02/2014 Overview: December 01, 2013 hernia vs diastasis,this seems more superior to umbilicus and like true hernia. Reducible today. D/w her when to seek emergent care for symptoms/signs of incarceration. Otherwise eval. w/ gen. surgery after . Cherie Kovacs MD Short interval between pregn ancies complicating , antepartum 08/06/2013 09/21/2013 Overview: 08/06/2013Genee delivered her previous child October 30, 2012. The father of the baby is the father of all her children. This is a surprise . Patient states her fianc had a vasectomy in December 2012. He didn't go back for the followup visit. TKRN Prior with demise 08/06/2013 03/18/2014 Overview: 09/30/13: IUFD: 3rd trim US. NSTs at 32 wks. Consider del 37-38 weeks. MH 08/06/2013 She is 5 para 3 with a history of a delivery on November 10, 2011 which was an IUFD at 38 weeks 4 days due to an abruption. TKRN History of hemorrhage 08/06/2013 03/18/2014 Overview: 08/06/2013 Patient has a history of hemorrhage with 2 deliveries. TKRN H/O shoulder dystocia in prior , yoav garcia 08/06/2013 03/18/2014 Overview: 08/06/2013 Patient has a history of mild shoulder dystocia with her delivery in 2011. TKRN Family history of defects 08/06/2013 03/18/2014 Overview: 08/06/2013 Pt states her father was born with a congenital heart defect but she is not sure of the details. Pt's brother at age 9 days from hypoplastic heart. Pt's nephew born with a heart valve abnormality and a hole in his heart. Surgical correction was done at age 6 days old. Pt's Maternal grandmother, maternal aunt and two 1st cousins born with cleft hand and one of the bones in their forearm missing. TKRN Patient requested diagnostic testing 08/06/2013 09/21/2013 Overview: 08/06/2013 Patient desires early screening in with sequential testing. TKRN Sterilization consult 09/11/2012 08/06/2013 Overview: September 11, 2012 title 19 signed. COunselled permanent, irreversible, risk of regret, ectopic and failure. Cherie Kovacs MD Placenta previa 06/27/2012 12/16/2012 Overview: 06/27/12 - repeat u/s ordered for 6wks - KK July 30, 2012 RR- no previa, low lying placenta Cherie Kovacs MD Adjustment disorder with mixed anxiety and depre ssed mood 05/28/2012 12/16/2012 Supervision of other high-risk (V23.89) 04/18/2012 12/16/2012 Overview: RR- PNRA done. V23.89 XY Prior with placenta abruption, antepar [place] 04/14/2012 12/16/2012 Overview: 04/14/2012Patient delivered her last child November 10, 2011 which was an IUFD at 38 weeks 4 days due to an abruption. She states she is very nervous about this . Discussed grieving process. Patient given information about the healing hearts support group at [facility]. Patient believes she has a lot of support from her mother. The father of the baby is not wanting to get to attached to this at this point. Patient had an ultrasound done by Dr. Kovacs on March 31, 2012 that revealed an intrauterine at 6 weeks 4 days. See linked visit in epic. History of hemorrhage, currently preg nant 04/14/2012 12/16/2012 Overview: 04/14/2012 Patient has a history of hemorrhage with her last 2 deliveries. History of shoulder dystocia in prior , currently 04/14/2012 12/16/2012 Overview: 04/14/2012Patient has a history of mild shoulder dystocia with her last delivery. Heart murmur 04/14/2012 09/21/2013 Overview: 04/14/2012 Patient has a history of a heart murmur. She was evaluated by Dr. Jesus Gar and he could not identify any structural cardiac abnormality. Pt states she was told he only found a heart murmur. Pt denies any chest discomfort, shortness of breath. palpitations or c/o her heart racing or skipping beats. She states she does not take antibiotics prior to dental procedures. History of depression 04/14/2012 08/06/2013 Overview: 06/27/12 - pt is crying less but still currie on 5mg celexa, will increase to 10mg, pt declines counseling - KK 04/14/2012 Pt has a history of depression diagnosed at age 13 and . She has been off medication since November 2009. She believes she is doing well off medications. Discussed increased risks of depression during and and importance of reporting the development or worsening of symptoms should they occur. Pt denies ever having any suicidal thoughts or tendencies or thoughts of hurting others. Patient requested diagnostic testing 04/14/2012 12/16/2012 Overview: 04/14/2012Patient desires early screening in with sequential testing. 05/13/2012negative Sequential screen first trimester. The first part of the Sequential Screen reports that her risk for Down syndrome decreased from her age-related risk of 1:800 to 1:10,000 and her Trisomy 18 risk decreased from her age-related risk of 1:2,800 to 1:10,000. Based on these results Dr. Torres's recommendation is for patient to follow-up with Sequential second trimester screening (06/02-06/16) and level II anatomy scan after 18wks. 06/23/2012negative Sequential screen second trimester. The second part of the Sequential Screen reports that her risk for Down syndrome decreased from her age-related risk of 1:1,000 to 1:10,000, her Trisomy 18 risk decreased from her age-related risk of 1:4,200 to 1:10,000 and the ONTD risk is 1:4,800. Based on these results Dr. Torres's recommendation is for patient to follow-up with a level II anatomy ultrasound, which was completed 06/13/12. The follow up recommendation from anatomy ultrasound was for a repeat ultrasound in 6-8wks for growth and placenta location. Immunization due 04/14/2012 12/16/2012 Overview: 04/14/2012 tetanus vaccine is not up-to-date Family history of congenital anomalies 2 12/16/2012 Overview: Pt states her father was born with a congenital heart defect but she is not sure of the details. Pt's brother at age 9 days from hypoplastic heart. Pt's nephew born with a heart valve abnormality and a hole in his heart. Surgical correction was done at age 6 days old. Pt's Maternal grandmother, maternal aunt and two 1st cousins born with cleft hand and one of the bones in their forearm missing. Unspecified high-risk 04/12/2011 04/18/2012 Short interval between pregn ancies complicating , antepartum 04/12/2011 12/16/2012 Biliary colic 12/09/2010 04/12/2011 Decreased movements, a ffecting management of mother, antepartum 10/12/2010 12/13/2010 Supervision of other high-risk (V23.89) 06/09/2010 12/13/2010 Transient hypertension of , antepartum 09/19/2009 11/23/2009 Supervision of other high-risk (V23.89) 01/27/2009 11/23/2009 documented as of this encounter (statuses as of 06/11/2022) [facility] History of Past illness Narrative* Problem Noted Date Resolved Date Irregular menstrual cycle 08/02/20142019 Dyspareunia 08/02/2014 12/13/2015 Ventral hernia 12/15/2013 08/02/2014 Sterilization consult 12/08/2013 08/02/2014 Overview: December 08, 2013 Title 19 signed. Counseled on r/b/a to this. Partner had vasectomy 12/2012. Understands it is permanent, irreversible, risk of regret and failure. Counseled on option of salpingectomy. Cherie Kovacs MD Umbilical hernia 12/01/2013 08/02/2014 Overview: December 01, 2013 hernia vs diastasis,this seems more superior to umbilicus and like true hernia. Reducible today. D/w her when to seek emergent care for symptoms/signs of incarceration. Otherwise eval. w/ gen. surgery after . Cherie Kovacs MD Short interval between pregn ancies complicating , antepartum 08/06/2013 09/21/2013 Overview: 08/06/2013Candace delivered her previous child October 30, 2012. The father of the baby is the father of all her children. This is a surprise . Patient states her fianc had a vasectomy in December 2012. He didn't go back for the followup visit. TKRN Prior with demise 08/06/2013 03/18/2014 Overview: 09/30/13: IUFD: 3rd trim US. NSTs at 32 wks. Consider del 37-38 weeks. MH 08/06/2013 She is 5 para 3 with a history of a delivery on November 10, 2011 which was an IUFD at 38 weeks 4 days due to an abruption. TKRN History of hemorrhage 08/06/2013 03/18/2014 Overview: 08/06/2013 Patient has a history of hemorrhage with 2 deliveries. TKRN H/O shoulder dystocia in prior , yoav garcia 08/06/2013 03/18/2014 Overview: 08/06/2013 Patient has a history of mild shoulder dystocia with her delivery in 2011. TKRN Family history of defects 08/06/2013 03/18/2014 Overview: 08/06/2013 Pt states her father was born with a congenital heart defect but she is not sure of the details. Pt's brother at age 9 days from hypoplastic heart. Pt's nephew born with a heart valve abnormality and a hole in his heart. Surgical correction was done at age 6 days old. Pt's Maternal grandmother, maternal aunt and two 1st cousins born with cleft hand and one of the bones in their forearm missing. TKRN Patient requested diagnostic testing 08/06/2013 09/21/2013 Overview: 08/06/2013 Patient desires early screening in with sequential testing. TKRN Sterilization consult 09/11/2012 08/06/2013 Overview: September 11, 2012 title 19 signed. COunselled permanent, irreversible, risk of regret, ectopic and failure. Cherie Kovacs MD Placenta previa 06/27/2012 12/16/2012 Overview: 06/27/12 - repeat u/s ordered for 6wks - KK July 30, 2012 RR- no previa, low lying placenta Cherie Kovacs MD Adjustment disorder with mixed anxiety and depre ssed mood 05/28/2012 12/16/2012 Supervision of other high-risk (V23.89) 04/18/2012 12/16/2012 Overview: RR- PNRA done. V23.89 XY Prior with placenta abruption, antepar [place] 04/14/2012 12/16/2012 Overview: 04/14/2012Patient delivered her last child November 10, 2011 which was an IUFD at 38 weeks 4 days due to an abruption. She states she is very nervous about this . Discussed grieving process. Patient given information about the healing hearts support group at [facility]. Patient believes she has a lot of support from her mother. The father of the baby is not wanting to get to attached to this at this point. Patient had an ultrasound done by Dr. Kovacs on March 31, 2012 that revealed an intrauterine at 6 weeks 4 days. See linked visit in epic. History of hemorrhage, currently preg nant 04/14/2012 12/16/2012 Overview: 04/14/2012 Patient has a history of hemorrhage with her last 2 deliveries. History of shoulder dystocia in prior , currently 04/14/2012 12/16/2012 Overview: 04/14/2012Patient has a history of mild shoulder dystocia with her last delivery. Heart murmur 04/14/2012 09/21/2013 Overview: 04/14/2012 Patient has a history of a heart murmur. She was evaluated by Dr. Jesus Gar and he could not identify any structural cardiac abnormality. Pt states she was told he only found a heart murmur. Pt denies any chest discomfort, shortness of breath. palpitations or c/o her heart racing or skipping beats. She states she does not take antibiotics prior to dental procedures. History of depression 04/14/2012 08/06/2013 Overview: 06/27/12 - pt is crying less but still currie on 5mg celexa, will increase to 10mg, pt declines counseling - KK 04/14/2012 Pt has a history of depression diagnosed at age 13 and . She has been off medication since November 2009. She believes she is doing well off medications. Discussed increased risks of depression during and and importance of reporting the development or worsening of symptoms should they occur. Pt denies ever having any suicidal thoughts or tendencies or thoughts of hurting others. Patient requested diagnostic testing 04/14/2012 12/16/2012 Overview: 04/14/2012Patient desires early screening in with sequential testing. 05/13/2012negative Sequential screen first trimester. The first part of the Sequential Screen reports that her risk for Down syndrome decreased from her age-related risk of 1:800 to 1:10,000 and her Trisomy 18 risk decreased from her age-related risk of 1:2,800 to 1:10,000. Based on these results Dr. Torres's recommendation is for patient to follow-up with Sequential second trimester screening (06/02-06/16) and level II anatomy scan after 18wks. 06/23/2012negative Sequential screen second trimester. The second part of the Sequential Screen reports that her risk for Down syndrome decreased from her age-related risk of 1:1,000 to 1:10,000, her Trisomy 18 risk decreased from her age-related risk of 1:4,200 to 1:10,000 and the ONTD risk is 1:4,800. Based on these results Dr. Torres's recommendation is for patient to follow-up with a level II anatomy ultrasound, which was completed 06/13/12. The follow up recommendation from anatomy ultrasound was for a repeat ultrasound in 6-8wks for growth and placenta location. Immunization due 04/14/2012 12/16/2012 Overview: 04/14/2012 tetanus vaccine is not up-to-date Family history of congenital anomalies 2 12/16/2012 Overview: Pt states her father was born with a congenital heart defect but she is not sure of the details. Pt's brother at age 9 days from hypoplastic heart. Pt's nephew born with a heart valve abnormality and a hole in his heart. Surgical correction was done at age 6 days old. Pt's Maternal grandmother, maternal aunt and two 1st cousins born with cleft hand and one of the bones in their forearm missing. Unspecified high-risk 04/12/2011 04/18/2012 Short interval between pregn ancies complicating , antepartum 04/12/2011 12/16/2012 Biliary colic 12/09/2010 04/12/2011 Decreased movements, a ffecting management of mother, antepartum 10/12/2010 12/13/2010 Supervision of other high-risk (V23.89) 06/09/2010 12/13/2010 Transient hypertension of , antepartum 09/19/2009 11/23/2009 Supervision of other high-risk (V23.89) 01/27/2009 11/23/2009 documented as of this encounter (statuses as of 06/14/2022) [facility] History of Past illness Narrative* Problem Noted Date Resolved Date Irregular menstrual cycle 08/02/20142019 Dyspareunia 08/02/2014 12/13/2015 Ventral hernia 12/15/2013 08/02/2014 Sterilization consult 12/08/2013 08/02/2014 Overview: December 08, 2013 Title 19 signed. Counseled on r/b/a to this. Partner had vasectomy 12/2012. Understands it is permanent, irreversible, risk of regret and failure. Counseled on option of salpingectomy. Cherie Kovacs MD Umbilical hernia 12/01/2013 08/02/2014 Overview: December 01, 2013 hernia vs diastasis,this seems more superior to umbilicus and like true hernia. Reducible today. D/w her when to seek emergent care for symptoms/signs of incarceration. Otherwise eval. w/ gen. surgery after . Cherie Kovacs MD Short interval between pregn ancies complicating , antepartum 08/06/2013 09/21/2013 Overview: 08/06/2013Candace delivered her previous child October 30, 2012. The father of the baby is the father of all her children. This is a surprise . Patient states her fianc had a vasectomy in December 2012. He didn't go back for the followup visit. TKRN Prior with demise 08/06/2013 03/18/2014 Overview: 09/30/13: IUFD: 3rd trim US. NSTs at 32 wks. Consider del 37-38 weeks. MH 08/06/2013 She is 5 para 3 with a history of a delivery on November 10, 2011 which was an IUFD at 38 weeks 4 days due to an abruption. TKRN History of hemorrhage 08/06/2013 03/18/2014 Overview: 08/06/2013 Patient has a history of hemorrhage with 2 deliveries. TKRN H/O shoulder dystocia in prior , yoav garcia 08/06/2013 03/18/2014 Overview: 08/06/2013 Patient has a history of mild shoulder dystocia with her delivery in 2011. TKRN Family history of defects 08/06/2013 03/18/2014 Overview: 08/06/2013 Pt states her father was born with a congenital heart defect but she is not sure of the details. Pt's brother at age 9 days from hypoplastic heart. Pt's nephew born with a heart valve abnormality and a hole in his heart. Surgical correction was done at age 6 days old. Pt's Maternal grandmother, maternal aunt and two 1st cousins born with cleft hand and one of the bones in their forearm missing. TKRN Patient requested diagnostic testing 08/06/2013 09/21/2013 Overview: 08/06/2013 Patient desires early screening in with sequential testing. TKRN Sterilization consult 09/11/2012 08/06/2013 Overview: September 11, 2012 title 19 signed. COunselled permanent, irreversible, risk of regret, ectopic and failure. Cherie Kovacs MD Placenta previa 06/27/2012 12/16/2012 Overview: 06/27/12 - repeat u/s ordered for 6wks - KK July 30, 2012 RR- no previa, low lying placenta Cherie Kovacs MD Adjustment disorder with mixed anxiety and depre ssed mood 05/28/2012 12/16/2012 Supervision of other high-risk (V23.89) 04/18/2012 12/16/2012 Overview: RR- PNRA done. V23.89 XY Prior with placenta abruption, antepar [place] 04/14/2012 12/16/2012 Overview: 04/14/2012Patient delivered her last child November 10, 2011 which was an IUFD at 38 weeks 4 days due to an abruption. She states she is very nervous about this . Discussed grieving process. Patient given information about the healing hearts support group at [facility]. Patient believes she has a lot of support from her mother. The father of the baby is not wanting to get to attached to this at this point. Patient had an ultrasound done by Dr. Kovacs on March 31, 2012 that revealed an intrauterine at 6 weeks 4 days. See linked visit in epic. History of hemorrhage, currently preg nant 04/14/2012 12/16/2012 Overview: 04/14/2012 Patient has a history of hemorrhage with her last 2 deliveries. History of shoulder dystocia in prior , currently 04/14/2012 12/16/2012 Overview: 04/14/2012Patient has a history of mild shoulder dystocia with her last delivery. Heart murmur 04/14/2012 09/21/2013 Overview: 04/14/2012 Patient has a history of a heart murmur. She was evaluated by Dr. Jesus Gar and he could not identify any structural cardiac abnormality. Pt states she was told he only found a heart murmur. Pt denies any chest discomfort, shortness of breath. palpitations or c/o her heart racing or skipping beats. She states she does not take antibiotics prior to dental procedures. History of depression 04/14/2012 08/06/2013 Overview: 06/27/12 - pt is crying less but still currie on 5mg celexa, will increase to 10mg, pt declines counseling - KK 04/14/2012 Pt has a history of depression diagnosed at age 13 and . She has been off medication since November 2009. She believes she is doing well off medications. Discussed increased risks of depression during and and importance of reporting the development or worsening of symptoms should they occur. Pt denies ever having any suicidal thoughts or tendencies or thoughts of hurting others. Patient requested diagnostic testing 04/14/2012 12/16/2012 Overview: 04/14/2012Patient desires early screening in with sequential testing. 05/13/2012negative Sequential screen first trimester. The first part of the Sequential Screen reports that her risk for Down syndrome decreased from her age-related risk of 1:800 to 1:10,000 and her Trisomy 18 risk decreased from her age-related risk of 1:2,800 to 1:10,000. Based on these results Dr. Torres's recommendation is for patient to follow-up with Sequential second trimester screening (06/02-06/16) and level II anatomy scan after 18wks. 06/23/2012negative Sequential screen second trimester. The second part of the Sequential Screen reports that her risk for Down syndrome decreased from her age-related risk of 1:1,000 to 1:10,000, her Trisomy 18 risk decreased from her age-related risk of 1:4,200 to 1:10,000 and the ONTD risk is 1:4,800. Based on these results Dr. Torres's recommendation is for patient to follow-up with a level II anatomy ultrasound, which was completed 06/13/12. The follow up recommendation from anatomy ultrasound was for a repeat ultrasound in 6-8wks for growth and placenta location. Immunization due 04/14/2012 12/16/2012 Overview: 04/14/2012 tetanus vaccine is not up-to-date Family history of congenital anomalies 2 12/16/2012 Overview: Pt states her father was born with a congenital heart defect but she is not sure of the details. Pt's brother at age 9 days from hypoplastic heart. Pt's nephew born with a heart valve abnormality and a hole in his heart. Surgical correction was done at age 6 days old. Pt's Maternal grandmother, maternal aunt and two 1st cousins born with cleft hand and one of the bones in their forearm missing. Unspecified high-risk 04/12/2011 04/18/2012 Short interval between pregn ancies complicating , antepartum 04/12/2011 12/16/2012 Biliary colic 12/09/2010 04/12/2011 Decreased movements, a ffecting management of mother, antepartum 10/12/2010 12/13/2010 Supervision of other high-risk (V23.89) 06/09/2010 12/13/2010 Transient hypertension of , antepartum 09/19/2009 11/23/2009 Supervision of other high-risk (V23.89) 01/27/2009 11/23/2009 documented as of this encounter (statuses as of 06/26/2022) [facility] History of Past illness Narrative* Problem Noted Date Diagnosed Date Resolved Date Irregular menstrual cycle 08/02/2014 Dyspareunia 08/02/2014 12/13/2015 Ventral hernia 12/15/2013 08/02/2014 Sterilization consult 12/08/20132014 Overview: December 08, 2013 Title 19 signed. Counseled on r/b/a to this. Partner had vasectomy 12/2012. Understands it is permanent, irreversible, risk of regret and failure. Counseled on option of salpingectomy. Cherie Kovacs MD Umbilical hernia 12/01/2013 08/02/2014 Overview: December 01, 2013 hernia vs diastasis,this seems more superior to umbilicus and like true hernia. Reducible today. D/w her when to seek emergent care for symptoms/signs of incarceration. Otherwise eval. w/ gen. surgery after . Cherie Kovacs MD Short interval between pregn ancies complicating , antepartum 08/06/201309/21 Overview: 08/06/2013Candace delivered her previous child October 30, 2012. The father of the baby is the father of all her children. This is a surprise . Patient states her fianc had a vasectomy in December 2012. He didn't go back for the followup visit. TKRN Prior with demise 08/06/2013 03/18/2014 Overview: 09/30/13: IUFD: 3rd trim US. NSTs at 32 wks. Consider del 37-38 weeks. MH 08/06/2013 She is 5 para 3 with a history of a delivery on November 10, 2011 which was an IUFD at 38 weeks 4 days due to an abruption. TKRN History of hemorrhage 08/06/2013 03/18/2014 Overview: 08/06/2013 Patient has a history of hemorrhage with 2 deliveries. TKRN H/O shoulder dystocia in maría elena or , currently 08/06/2013 03/18/2014 Overview: 08/06/2013 Patient has a history of mild shoulder dystocia with her delivery in 2011. TKRN Family history of defects 08/06/2013 03/18/2014 Overview: 08/06/2013 Pt states her father was born with a congenital heart defect but she is not sure of the details. Pt's brother at age 9 days from hypoplastic heart. Pt's nephew born with a heart valve abnormality and a hole in his heart. Surgical correction was done at age 6 days old. Pt's Maternal grandmother, maternal aunt and two 1st cousins born with cleft hand and one of the bones in their forearm missing. TKRN Patient requested diagnostic testing 08/06/2013 09/21/2013 Overview: 08/06/2013 Patient desires early screening in with sequential testing. TKRN Sterilization consult 09/11/20122013 Overview: September 11, 2012 title 19 signed. COunselled permanent, irreversible, risk of regret, ectopic and failure. Cherie Kovacs MD Placenta previa 06/27/2012 12/16/2012 Overview: 06/27/12 - repeat u/s ordered for 6wks - KK July 30, 2012 RR- no previa, low lying placenta Cherie Kovacs MD Adjustment disorder with mix ed anxiety and depressed mood 05/28/2012 12/16/2012 Supervision of other high-ri sk (V23.89) 04/18/2012 12/16/2012 Overview: RR- PNRA done. V23.89 XY Prior with placent a abruption, antepartum 04/14/2012 12/16/2012 Overview: 04/14/2012Patient delivered her last child November 10, 2011 which was an IUFD at 38 weeks 4 days due to an abruption. She states she is very nervous about this . Discussed grieving process. Patient given information about the healing hearts support group at [facility]. Patient believes she has a lot of support from her mother. The father of the baby is not wanting to get to attached to this at this point. Patient had an ultrasound done by Dr. Kovacs on March 31, 2012 that revealed an intrauterine at 6 weeks 4 days. See linked visit in epic. History of hemorr alexander, currently 04/14/2012 12/16/2012 Overview: 04/14/2012 Patient has a history of hemorrhage with her last 2 deliveries. History of shoulder dystocia in prior , currently 04/14/2012 12/16/2012 Overview: 04/14/2012Patient has a history of mild shoulder dystocia with her last delivery. Heart murmur 04/14/2012 09/21/2013 Overview: 04/14/2012 Patient has a history of a heart murmur. She was evaluated by Dr. Jesus Gar and he could not identify any structural cardiac abnormality. Pt states she was told he only found a heart murmur. Pt denies any chest discomfort, shortness of breath. palpitations or c/o her heart racing or skipping beats. She states she does not take antibiotics prior to dental procedures. History of depression 04/14/20122013 Overview: 06/27/12 - pt is crying less but still currie on 5mg celexa, will increase to 10mg, pt declines counseling - KK 04/14/2012 Pt has a history of depression diagnosed at age 13 and . She has been off medication since November 2009. She believes she is doing well off medications. Discussed increased risks of depression during and and importance of reporting the development or worsening of symptoms should they occur. Pt denies ever having any suicidal thoughts or tendencies or thoughts of hurting others. Patient requested diagnostic testing 04/14/2012 12/16/2012 Overview: 04/14/2012Patient desires early screening in with sequential testing. 05/13/2012negative Sequential screen first trimester. The first part of the Sequential Screen reports that her risk for Down syndrome decreased from her age-related risk of 1:800 to 1:10,000 and her Trisomy 18 risk decreased from her age-related risk of 1:2,800 to 1:10,000. Based on these results Dr. Torres's recommendation is for patient to follow-up with Sequential second trimester screening (06/02-06/16) and level II anatomy scan after 18wks. 06/23/2012negative Sequential screen second trimester. The second part of the Sequential Screen reports that her risk for Down syndrome decreased from her age-related risk of 1:1,000 to 1:10,000, her Trisomy 18 risk decreased from her age-related risk of 1:4,200 to 1:10,000 and the ONTD risk is 1:4,800. Based on these results Dr. Torres's recommendation is for patient to follow-up with a level II anatomy ultrasound, which was completed 06/13/12. The follow up recommendation from anatomy ultrasound was for a repeat ultrasound in 6-8wks for growth and placenta location. Immunization due 04/14/2012 12/16/2012 Overview: 04/14/2012 tetanus vaccine is not up-to-date Family history of congenital anomalies 06/20/2011 12/16/2012 Overview: Pt states her father was born with a congenital heart defect but she is not sure of the details. Pt's brother at age 9 days from hypoplastic heart. Pt's nephew born with a heart valve abnormality and a hole in his heart. Surgical correction was done at age 6 days old. Pt's Maternal grandmother, maternal aunt and two 1st cousins born with cleft hand and one of the bones in their forearm missing. Unspecified high-risk 04/12/2011 04/18/2012 Short interval between pregn ancies complicating , antepartum 04/12/201112/16 Biliary colic 12/09/2010 04/12/2011 Decreased movements, a ffecting management of mother, antepartum 10/12/2010 011 Supervision of other high-ri sk (V23.89) 06/09/2010 12/13/2010 Transient hypertension of pr egnancy, antepartum 09/19/2009 11/23/2009 Supervision of other high-ri sk (V23.89) 01/27/2009 11/23/2009 documented as of this encounter (statuses as of 11/30/2022) [facility] Pharyngitis, unspecified etiology- Primary URI, acute Acute upper respiratory infections of unspecified site [facility] Diagnosis LLQ abdominal pain- Primary Abdominal pain, left lower quadrant [facility] Diagnosis Substernal chest pain- Primary Precordial pain Chest pain varying with breathing Pain in throat and chest [facility] Diagnosis Odynophagia- Primary Dysphagia, unspecified Altered bowel habits Other symptoms involving digestive system [facility] Diagnosis Streptococcal pharyngitis- Primary Streptococcal sore throat Sore throat Acute pharyngitis [facility] Diagnosis Odynophagia Dysphagia, unspecified [facility]* Diagnosis Folliculitis- Primary Other specified disease of hair and hair follicles [facility]* Diagnosis Annual physical exam- Primary Routine general medical examination at a health care facility Alternating constipation and diarrhea Other symptoms involving digestive system Folliculitis Other specified disease of hair and hair follicles Immunization due Need for prophylactic vaccination and inoculation against unspecified single disease [facility] Diagnosis Bile reflux gastritis- Primary Other specified gastritis without mention of hemorrhage Loose stools Abnormal feces LLQ discomfort Abdominal pain, left lower quadrant documented in this encounter [facility] for referral (narrative)* Diagnostic Procedure Only (Urgent) - Authorized Specialty Diagnoses / Procedures Referred By Contac t Referred To Contact US IMAGING Diagnoses LLQ abdominal pain Procedures US FEMALE PELVIS TRANSVAG US TRANSVAGINAL Carolyn Ortiz APRN.CNP [address] [place] [address] Us Imaging Referral ID Status Reason Start Date Expiration Date Visits Requested Visits Authorized [id number] Authorized Auto-Generat ed Referral 02/15/2023 1 1 [facility] for referral (narrative)* Outpatient Procedure (Routine) - Authorized Specialty Diagnoses / Procedures Referred By Contac t Referred To Contact [facility] Diagnoses Odynophagia Procedures EGD DIAGNOSTIC ESOPHAGOGASTRODUODENOS COPY TRANSORAL DIAGNOSTIC Rachel Obregon PA-C [address] [place] [address] [facility] [address] [place] [address] Referral ID Status Reason Start Date Expiration Date Visits Requested Visits Authorized [id number] Authorized Auto-Generat ed Referral 05/16/2022 05/17/2023 1 1 [facility] for referral (narrative)* Diagnostic Procedure Only (Routine) - Closed Specialty Diagnoses / Procedures Referred By Contac t Referred To Contact XR IMAGING Diagnoses Odynophagia Procedures XR ESOPHAGRAM RADIOLOGIC EXAM ESOPHAGUS SINGLE CONTRAST STUDY Mane Jade MD [address] [place] [address] Xr Imaging Referral ID Status Reason Start Date Expiration Date V isits Requested Visits Authorized [id number] Closed Auto-Generate d Referral 05/22/2022 06/21/2023 1 1 [facility]* Diagnostic Procedure Only (Routine) - Closed Specialty Diagnoses / Procedures Referred By Loida t Referred To Contact XR IMAGING Diagnoses Odynophagia Procedures XR ESOPHAGRAM RADIOLOGIC EXAM ESOPHAGUS SINGLE CONTRAST STUDY Mane Jade MD [address] 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 Advance Directive(s) Summary Purpose Family History No Family History Records FoundNo Family History Records FoundNo Family History Records Found Additional Source Comments Source Comments (unrecognize d section and content) In the event this informatio n is protected by the Federal Confidentiality of Alcohol and Drug Abuse Patient Records regulations: The Federal rules restrict any use of the information to criminally investigate or prosecute any alcohol or drug abuse patient.[facility] the event this information is protected by the Federal Confidentiality of Alcohol and Drug Abuse Patient Records regulations: The Federal rules restrict any use of the information to criminally investigate or prosecute any alcohol or drug abuse patient.[facility] the event this information is protected by the Federal Confidentiality of Alcohol and Drug Abuse Patient Records regulations: The Federal rules restrict any use of the information to criminally investigate or prosecute any alcohol or drug abuse patient.[facility] the event this information is protected by the Federal Confidentiality of Alcohol and Drug Abuse Patient Records regulations: The Federal rules restrict any use of the information to criminally investigate or prosecute any alcohol or drug abuse patient.[facility] the event this information is protected by the Federal Confidentiality of Alcohol and Drug Abuse Patient Records regulations: The Federal rules restrict any use of the information to criminally investigate or prosecute any alcohol or drug abuse patient.[facility] the event this information is protected by the Federal Confidentiality of Alcohol and Drug Abuse Patient Records regulations: The Federal rules restrict any use of the information to criminally investigate or prosecute any alcohol or drug abuse patient.[facility] the event this information is protected by the Federal Confidentiality of Alcohol and Drug Abuse Patient Records regulations: The Federal rules restrict any use of the information to criminally investigate or prosecute any alcohol or drug abuse patient.[facility] the event this information is protected by the Federal Confidentiality of Alcohol and Drug Abuse Patient Records regulations: The Federal rules restrict any use of the information to criminally investigate or prosecute any alcohol or drug abuse patient.[facility] the event this information is protected by the Federal Confidentiality of Alcohol and Drug Abuse Patient Records regulations: The Federal rules restrict any use of the information to criminally investigate or prosecute any alcohol or drug abuse patient.[facility] the event this information is protected by the Federal Confidentiality of Alcohol and Drug Abuse Patient Records regulations: The Federal rules restrict any use of the information to criminally investigate or prosecute any alcohol or drug abuse patient.[facility] the event this information is protected by the Federal Confidentiality of Alcohol and Drug Abuse Patient Records regulations: The Federal rules restrict any use of the information to criminally investigate or prosecute any alcohol or drug abuse patient.[facility] Health[facility] the event this information is protected by the Federal Confidentiality of Alcohol and Drug Abuse Patient Records regulations: The Federal rules restrict any use of the information to criminally investigate or prosecute any alcohol or drug abuse patient.[facility] Care Teams (unrecognized sec tion and content) Weight Count Operator Relationship Specialty Start Date End Date Idris Mena MD [address] [place] [address] PCP - General Internal Medicine 07/04/20 Weight Count Operator Relationship Specialty Start Date End Date Idris Mena MD [address] [place] [address] PCP - General Internal Medicine 07/04/20 Weight Count Operator Relationship Specialty Start Date End Date Idris Mena MD [address] [place] [address] PCP - General Internal Medicine 07/04/20 Weight Count Operator Relationship Specialty Start Date End Date Idris Mena MD [address] [place] [address] PCP - General Internal Medicine 07/04/20 Weight Count Operator Relationship Specialty Start Date End Date Idris Mena MD [address] [place] [address] PCP - General Internal Medicine 07/04/20 Weight Count Operator Relationship Specialty Start Date End Date Idris Mena MD [address] [place] [address] PCP - General Internal Medicine 07/04/20 Weight Count Operator Relationship Specialty Start Date End Date Idris Mena MD [address] [place] [address] PCP - General Internal Medicine 07/04/20 Weight Count Operator Relationship Specialty Start Date End Date Idris Mena MD [address] [place] [address] PCP - General Internal Medicine 07/04/20 Weight Count Operator Relationship Specialty Start Date End Date Idris Mena MD [address] [place] [address] PCP - General Internal Medicine 07/04/20 Weight Count Operator Relationship Specialty Start Date End Date Idris Mena MD [address] [place] [address] PCP - General Internal Medicine 07/04/20 Reason for Visit (unrecogniz ed section and content) Reason Comments lower left abdominal pain Reason Comments Chest Pain Reason Comments odynophagia Seen in the ER 03/27/ 3 notes in careeverywhere. Specialty Diagnoses / Procedures Referred By Loida blue Referred To Contact Gastroenterology Diagnoses Odynophagia Substernal chest pain Procedures CONSULT TO GASTROENTEROLOGY OFFICE/OUTPATIENT NEW HIGH MDM 60-74 MINUTES Idris Mena MD [address] [place] [address] Referral ID Status Reason Start Date Expiration Date V isits Requested Visits Authorized [id number] Closed PCP Requested Referral 04/01/2022 04/01/2023 1 1 Reason Comments Sore Throat head congestion, cou gh and headache x 2 days Reason Comments Rash all over, itching x 1 day Reason Comments Physical School Physical Reason Comments Procedure Follow Up Painful swallowing i s better but still having heartburn.Left sided stabbing pain before bowel movements EGD 05/22/22 Esophagram 06/01/22 INFORMATION SOURCE (unrecogn ized section and content) DATE CREATED AUTHOR AUTHOR'S ORGANIZ ATION 06/04/2022 [facility] DATE CREATED AUTHOR AUTHOR'S ORGANIZ ATION 12/02/2022 [facility] FOR RECORDS PERTAINING TO PATIENTS WHO ARE OR HAVE BEEN ENROLLED IN A CHEMICAL DEPENDENCY/SUBSTANCEABUSE PROGRAM, SOME INFORMATION MAY BE OMITTED. This clinical summary was aggregated from multiple sources. Caution should be exercised in using it in the provision of clinical care. This summary normalizes information from multiple sources, and as a consequence, information in this document may materially change the coding, format and clinical context of patient data. In addition, data may be omitted in some cases. CLINICAL DECISIONS SHOULD BE BASED ON THE PRIMARY CLINICAL RECORDS. [employer] provides no warranty or guarantee of the accuracy or completeness of information in this document.
[2023-02-27] MEDS: Potassium Chloride Oral Tablet 20 MEQ 40 MEQ PO (04:01)
[2023-02-27 04:13] VITALS: BP 106/60; PULSE 86; RESP 16; O2SAT 98
== END 2023-02-27 04:15 | disposition home or self-care (01) ==
PROVIDERS: Emergency Provider Emergency Medicine; PCP Internal Medicine; Visit Provider Emergency Medicine
DX: I47.10 Supraventricular tachycardia, unspecified (principal); E87.6 Hypokalemia; Z79.899 Other long term (current) drug therapy
CPT/HCPCS: 80048; 85025; 93005; 99284; A4216

== ENCOUNTER → 2023-03-18 | Outpatient (CLI) | payer MEDICAID, SELFPAY ==
[2023-03-18 11:31] LABS: Thyroid Stim Hormone (TSH) 1.74 uIU/mL (0.358-3.74)
== END | disposition home or self-care (01) ==
LOC: LAB 10:04
PROVIDERS: PCP Internal Medicine; Referring Provider Internal Medicine Cardiovascular Disease; Visit Provider Internal Medicine Cardiovascular Disease
DX: I47.10 Supraventricular tachycardia, unspecified (principal); R07.9 Chest pain, unspecified
CPT/HCPCS: 36415; 84443

== ENCOUNTER → 2023-03-29 | Outpatient (CLI) | payer MEDICAID, SELFPAY | END | disposition home or self-care (01) | LOC: PSN 11:51 | PROVIDERS: PCP Internal Medicine; Referring Provider Internal Medicine Cardiovascular Disease; Visit Provider Internal Medicine Cardiovascular Disease | DX: I47.10 Supraventricular tachycardia, unspecified (principal); R07.9 Chest pain, unspecified; R01.1 Cardiac murmur, unspecified; Z86.79 Personal history of other diseases of the circulatory system | CPT/HCPCS: 93225; 93226 ==

== ENCOUNTER → 2023-05-13 | Outpatient (CLI) | payer MEDICAID, SELFPAY ==
--- NOTE | 2023-05-13 11:05 | ECHOD_ITS ---
Reason For Study: CHEST PAIN Procedure This was a 2D Doppler, Color Flow transthoracic echocardiogram. Exam performed in department. Left Ventricle Normal LV size. Apical false tendon noted. Left ventricular systolic function is lower limits of normal. The estimated ejection fraction is 50 %. No evidence for diastolic dysfunction. Right Ventricle Normal RV size. Normal systolic function. Atria The left and right atria are normal. Mitral Valve The mitral valve is structurally normal. No prolapse or stenosis seen. Mild (1+) mitral valve insufficiency. Tricuspid Valve Normal tricuspid valve. Trivial tricuspid valve insufficiency. Unable to estimate RV systolic pressure due to insufficient tricuspid regurgitant envelope. Aortic Valve Trisinus/trileaflet aortic valve. Pulmonic Valve Normal pulmonic valve. Trivial pulmonic valve insufficiency. Great Vessels Normal aortic root. Pericardium/Pleural No pericardial effusion. MMode/2D Measurements & Calculations LVIDd: 5.1 cm IVSd: 0.76 cm Ao root diam: 2.8 cm LVIDs: 3.8 cm LVPWd: 0.87 cm RVDd: 3.1 cm FS: 25.7 % LAV(MOD-bp): 35.6 ml LVAd ap4: 30.1 cm2 SV(MOD-sp4): 46.4 ml LAV(MOD-bp) Indexed: 18.0 ml/m2 LVLd ap4: 7.7 cm LAV(MOD-sp2): 37.3 ml EDV(MOD-sp4): 97.9 ml LAV(MOD-sp4): 33.4 ml EDV(sp4-el): 100.1 ml LVAs ap4: 20.1 cm2 LVLs ap4: 6.7 cm ESV(MOD-sp4): 51.5 ml ESV(sp4-el): 51.3 ml EF(MOD-sp4): 47.4 % EF(sp4-el): 48.7 % SV(sp4-el): 48.8 ml LA A4 area: 13.9 cm2 LA dimension(2D): 3.5 cm RA A4 area: 12.1 cm2 TAPSE: 2.1 cm Time Measurements MV dec time: 0.24 sec Doppler Measurements & Calculations MV E max kevin: 54.9 cm/sec Lat Peak E' Kevin: 12.1 cm/sec Med Peak E' Kevin: 9.6 cm/sec MV A max kevin: 66.4 cm/sec E/E' lat: 4.6 E/E' med: 5.7 MV E/A: 0.83 Ao V2 max: 103.9 cm/sec LV V1 max: 93.8 cm/sec PA V2 max: 84.1 cm/sec Ao max P.3 mmHg LV V1 max P.5 mmHg ECHO/Echo Complete Interpretation Summary The estimated ejection fraction is 50 %. No evidence for diastolic dysfunction. Mild (1+) mitral valve insufficiency. Ordering Physician: Carlton Burr Referring Physician: ETTA MENA Performed By: Fany Saez RDCS
--- NOTE | 2023-05-15 15:49 | STRESSREP ---
Stress Test Report Date: 05/12/2022 Procedure: Exercise tolerance test Indications: SVT/chest pain Consent: Per the patient Procedure: The patient exercised on a Miles protocol for 10 minutes and 30 seconds achieving a peak heart rate of 169 bpm (90% predicted maximal heart rate) with a peak blood pressure 152/84 mmHg and a peak MET capacity of approximately 13.7 MET's. The baseline ECG demonstrated sinus rhythm. The peak exercise ECG demonstrated sinus tachycardia with no ischemic changes. There were no cardiac dysrhythmias pretest, during exercise, or recovery. The functional capacity was considered adequate. The patient had no complaints of chest discomfort during exercise or recovery. The examination was discontinued secondary to target heart rate being achieved. Impression: 1. Technically adequate (percent predicted maximal heart rate greater than 85%) exercise tolerance test 2. Peak exercise ECG with no ischemic changes 3. There were no cardiac dysrhythmias during exercise or recovery This note was generated with [employer] software. It may contain incorrect words, spelling, and punctuation that were not noted in checking the note before signing.
== END | disposition home or self-care (01) ==
PROVIDERS: PCP Internal Medicine; Referring Provider Internal Medicine Cardiovascular Disease; Visit Provider Internal Medicine Cardiovascular Disease
DX: R07.9 Chest pain, unspecified (principal); Z86.79 Personal history of other diseases of the circulatory system; I47.10 Supraventricular tachycardia, unspecified; R01.1 Cardiac murmur, unspecified
CPT/HCPCS: 93017; 93306